=== PATIENT | female | born 1945 | race Caucasian/White ===

== ENCOUNTER 2017-11-27 17:40 | Inpatient (IN) ==
[2017-11-27] MEDS ORDERED: predniSONE 20 MG TABLET PO ONE (18:09)
[2017-11-27] MEDS ORDERED: Ipratropium/Albuterol Neb 3 ML IH ONE (18:09)
--- NOTE | 2017-11-27 18:09 | Emergency Department Note ---
Disposition Clinical Impression: Acute exacerbation of chronic obstructive airways disease Disposition: Still a Patient Condition: Fair Forms: ED Satisfaction Letter Time of Disposition: 19:17 SOB HPI - General Chief Complaint: ED Shortness of Breath/Dyspnea Stated Complaint: Flu like symptoms,ENZO Time Seen by Provider: 11/27/17 17:53 Source: patient, family Limitations: no limitations Nursing Notes Reviewed: Yes Vital Signs Reviewed: Yes - History of Present Illness 72-year-old female history of COPD not oxygen dependent but requiring oxygen, presents with cough congestion and fever headache myalgias. Temperature 101 at home, she seen by her primary care physician who ordered a chest x-ray earlier was negative for pneumonia. The patient states that her symptoms started acutely this morning. Patient has wheezing, cough nonproductive, headache fever chills. Patient patient may have influenza, she did get a flu shot this year and is up-to-date on her pneumonia vaccine. She has not been admitted to the hospital for several years. Pt Subjective Complaint: shortness of breath, cough Onset (ago): hour(s) Context: recent illness Severity: moderate Consistency/Duration: intermittent Improves with: oxygen Known history of: COPD Associated symptoms: Reports: fever, cough, wheezing, sputum production Treatment prior to arrival: oxygen Cough present: Yes Cough Description: Voluntary Cough Frequency: Intermittent Sputum production: No Sputum Amount: Scant Sputum Color: Clear - Related Data Home Medications Medication Instructions Recorded Confirmed Aspirin 81 mg PO DAILY 07/20/15 08/16/16 TraMADol 50 mg PO Q6H PRN 07/20/15 08/16/16 Acetaminophen with Codeine 1 each PO Q8H PRN 08/16/16 08/16/16 [Acetaminophen-Cod #3 Tablet] Albuterol Sulfate [Albuterol 2 puff IH Q4HR PRN 08/16/16 08/16/16 Inhaler] Budesonide/Formoterol 160/4.5 2 puff IH BIDR 08/16/16 08/16/16 [Symbicort 160/4.5] Clopidogrel [Plavix] 75 mg PO DAILY 08/16/16 08/16/16 Previous Rx's Medication Instructions Recorded GuaiFENesin ER [Mucinex] 600 mg PO BID PRN 3 Days tab 07/20/15 Benzonatate [Tessalon] 200 mg PO TID PRN #30 capsule 10/21/16 GuaiFENesin ER [Mucinex] 1,200 mg PO BID #20 tbbp.12hr 10/21/16 Doxycycline 100 mg PO BID #20 capsule 01/03/17 predniSONE [Prednisone] 10 - 40 mg PO QAM #17 tablet 01/03/17 Benzonatate [Tessalon] 100 mg PO TID #30 capsule 01/24/17 Doxycycline Hyclate 100 mg PO BID #20 tablet 01/24/17 PredniSONE [Deltasone] 20 mg PO DAILY #12 tablet 01/24/17 Allergies Allergy/AdvReac Type Severity Reaction Status Date / Time Hydromorphone [From Dilaudid] Allergy Rash Verified 11/27/17 17:48 nitrofurantoin Allergy Anaphylaxis Verified 11/27/17 17:48 [From Macrodantin] Erythromycin Base AdvReac Gastrointestinal Verified 11/27/17 17:48 Upset Penicillins AdvReac Gastrointestinal Verified 11/27/17 17:48 Upset All systems ED: reviewed and negative except as stated. Review of Systems: As Per HPI Constitutional: Reports: fever, chills Eyes: Denies: eye pain, eye discharge ENT ED: Denies: ear pain, throat pain Cardiovascular: Denies: chest pain Respiratory: Reports: as per HPI, cough, dyspnea, wheezes Gastrointestinal: Denies: abdominal pain, nausea Genitourinary: Denies: urgency Musculoskeletal: Denies: back pain, neck pain Integumentary: Denies: rash, abrasion Neurological: Denies: headache Psychiatric: Denies: anxiety Past Medical History - Past Medical History Attestation: Yes The following information was validated with the patient. Source: patient Medical history: Reports: COPD, coronary artery disease, fibromyalgia, GERD, hyperlipidemia, myocardial infarction, other Surgical history: Reports: angioplasty/stent, appendectomy Psychiatric history: Reports: anxiety, depression - Social History Smoking Status: Current every day smoker Smokeless Tobacco Status: No Alcohol use: Reports: none Drug use: Reports: none Physical Exam Constitutional: NAD, on 2 L of oxygen, febrile and tachycardic Eyes: PERRLA, sclera anicteric ENT & Mouth: MM dry Neck: normal inspection, neck is supple Resp: wheezes bilaterally, coarse respirations CV: Tachycardia, no m/g/r GI: normal inspection, soft, no guarding or rigidity Neuro: A&O3, CNII-XII grossly intact, KIM Skin: on limited exam, skin intact with no rashes or lesions - General Limitations: no limitations General appearance: alert Course Course Narrative: 72-year-old female COPD, she presents febrile and tachycardic, she has diffuse inspiratory and expiratory wheezes, do nebs ordered CBC BMP, blood cultures and lactate influenza swab, suspect flu, bronchitis, upper respiratory infection, COPD exacerbation, care will be signed out to Dr. Trinidad and for follow- up on lab work and possible admission. Vital Signs Temperature 100.4 F H 11/27/17 17:44 Pulse Rate 107 11/27/17 17:44 Respiratory Rate 24 11/27/17 17:44 Blood Pressure 128/71 11/27/17 17:44 O2 Sat by Pulse Oximetry 91 11/27/17 17:44 Temperature 100.4 F H 11/27/17 18:16 Pulse Rate 100 11/27/17 18:46 Respiratory Rate 21 11/27/17 18:46 Blood Pressure 145/85 11/27/17 18:46 O2 Sat by Pulse Oximetry 94 11/27/17 18:46 Oxygen Delivery Oxygen Delivery Nasal Cannula Shortness of Breath/Dyspnea - Differential Diagnosis Likely: congestive heart failure, pneumonia, pulmonary embolism - Medical Records Medical records reviewed: Yes I reviewed the patient's medical records. - Lab Data Lab results reviewed: Yes I reviewed the patient's lab results. Result diagrams: 11/27/17 18:07 Lab Results 11/27/17 11/27/17 11/27/17 Range/Units 18:07 18:07 18:07 WBC 7.0 (4.3-11.1) K/mcL RBC 4.21 (3.82-4.97) M/mcL Hgb 13.6 (11.5-15.4) g/dL Hct 40.0 (35.3-44.9) % MCV 95.0 (83.0-100.0) fL MCH 32.3 (28.0-33.3) pg MCHC 34.0 (31.6-35.5) g/dL RDW 12.2 (11.5-14.5) % Plt Count 246 (140-400) K/mcL MPV 8.9 L (9.4-12.4) fL Immature Gran % 0.4 (0-4) % Seg Neutrophils % 83.4 % Lymphocytes % 5.4 % Monocytes % 7.8 % Eosinophils % 2.3 % Basophils % 0.7 % Neutrophils # 5.9 (1.6-8.9) K/mcL Lymphocytes # 0.4 L (0.6-4.6) K/mcL Monocytes # 0.6 (0.0-1.3) K/mcL Eosinophils # 0.2 (0.0-0.6) K/mcL Basophils # 0.1 (0.0-0.2) K/mcL Lactic Acid 0.8 (0.5-2.2) mmol/L Troponin I < 0.03 (< 0.04) ng/mL - Radiology Data Radiology results reviewed: Yes I reviewed the patient's radiology results. S.B.A.R. - S.B.A.RDasha Transition of Care: fu labs dispo Situation: Demographics, MOA Background: Presenting Complaint, Relevant PMH, Meds, & Allergies Assessment: Vital Signs, Course and respsone to treatment, Exam Concerns, Patient/Family Expectation, Pertinant Lab Results, Outstanding Labs Recommendation: Barrier(s) to disposition, Recommendation based on pending studies, treatments, or consults S.B.A.RDasha Report Given to: Amos Louise Repor Time: 19:18 Attestation Statement - Attestation Attestation: I, Noam Bateman, examined this patient and my medical decision-making was reviewed with the IMPORTER OR EXPORTER/PA/Advanced Practice Nurse/Resident Physician. I agree with the documented findings, disposition and treatment plan as described except to the extent set forth below. 72-year-old female presents emergency department with acute onset of shortness of breath. Patient states she has a long history of COPD exacerbations and this feels similar to them. Patient denies nausea, vomiting, diarrhea. Patient has wheezing the bilateral posterior lung galaviz. Patient care was signed out to Dr. Dede Bateman pending laboratory evaluation and imaging studies and disposition.
[2017-11-27 18:17] LABS: Basophils # 0.1 K/mcL (0.0-0.2); Basophils % 0.7 %; Eosinophils # 0.2 K/mcL (0.0-0.6); Eosinophils % 2.3 %; Hemoglobin 13.6 g/dL (11.5-15.4); Immature Granulocytes % 0.4 % (0-4); Lymphocytes # 0.4 K/mcL (0.6-4.6); Lymphocytes % 5.4 %; Mean Corpuscular Hemoglobin 32.3 pg (28.0-33.3); Mean Platelet Volume 8.9 fL (9.4-12.4); Monocytes # 0.6 K/mcL (0.0-1.3); Monocytes % 7.8 %; Neutrophils # 5.9 K/mcL (1.6-8.9); Platelet Count 246 K/mcL (140-400); Red Blood Count 4.21 M/mcL (3.82-4.97); Red Cell Distribution Width 12.2 % (11.5-14.5); Segmented Neutrophils % 83.4 %
[2017-11-27] MEDS ORDERED: Levofloxacin 750 MG/150 ML 750 MG/150 ML BAG IVPB STA (19:25)
[2017-11-27 19:36] LABS: Alanine Aminotransferase 14 Units/L (7-52); Albumin 3.9 g/dL (3.5-5.7); Albumin/Globulin Ratio 1.4 (1.1-2.2); Alkaline Phosphatase 56 Units/L (34-104); Aspartate Amino Transferase 18 Units/L (13-39); BUN/Creatinine Ratio 14 (6-26); Bilirubin,Direct 0.1 mg/dL (0.0-0.2); Bilirubin,Indirect 0.4 mg/dL (0.0-1.2); Bilirubin,Total 0.5 mg/dL (0.3-1.0); Blood Urea Nitrogen 11 mg/dL (8-23); Calcium 9.1 mg/dL (8.6-10.3); Carbon Dioxide 23 mEq/L (23-29); Chloride 101 mEq/L (98-107); Globulin 2.8 g/dL (2.4-3.5); Glucose 121 mg/dL (70-105); Lipase 6 Units/L (11-82); Osmolality,Calculated 273 (280-300); Sodium 131 mEq/L (136-145); Total Protein 6.7 g/dL (6.4-8.9); eGFR For African Americans > 60 (> 60); eGFR For Non-African Americans > 60 (> 60)
--- NOTE | 2017-11-27 19:36 | Emergency Department Note ---
START Narrative - START START: I examined this patient and my medical decision-making was reviewed with the Resident Physician. I agree with the documented findings, disposition and treatment plan as described except to the extent set forth below. accepted sign out from Dr. Bateman and the plan is to followup on the rest of the laboratory workup and admit to medicine for pneumonia, ACOPDE. She is wheezing at bedeside which apparantly had improved from when she first arrived and had a fever at that time. XR from this morning is not conclusivee for pneumonia although clinically she appears to have pnuemonia. We will treat for CAP and atypicals, she is not from a detention and no recent hospitalizations.
[2017-11-27 19:49] LABS: Bilirubin,Urine Negative (Negative); Blood,Urine Large (Negative); Clarity,Urine Clear (Clear); Color,Urine Yellow (Yellow); Glucose,Urine (UA) Normal (Normal); Ketones,Urine 15 mg/dL (Negative); Leukocyte Esterase,Urine Negative (Negative); Nitrite,Urine Negative (Negative); PH,Urine 6.5 pH Units (5.0-8.0); Protein,Urine Negative (Neg-Trace); Specific Gravity,Urine < 1.005 (1.010-1.025); Urobilinogen,Urine Normal (Normal)
[2017-11-27 19:51] LABS: Bacteria,Urine None Seen per hpf (None-Few); Hyaline Casts,Urine None Seen per lpf (None-Few); RBC,Urine 30-50 per hpf (0-3); Squamous Epithelial Cell,Urine None Seen per lpf (None-Few); WBC,Urine 0-3 per hpf (0-3)
[2017-11-27] MEDS ORDERED: *HR* Heparin 5,000 UNIT/ML VIAL IVP ONE (20:27)
[2017-11-27] MEDS ORDERED: *HR* Heparin 5,000 UNIT/ML VIAL IVP PRN ×2 (20:27)
[2017-11-27] MEDS ORDERED: Heparin 25,000 UNIT/500 ML D5W 25,000 UNIT/500 ML BAG IVC ONE (20:40)
--- NOTE | 2017-11-27 20:42 | Emergency Department Note ---
Disposition Clinical Impression: Acute exacerbation of chronic obstructive airways disease Pneumonia Qualifiers: Pneumonia type: due to unspecified organism Laterality: left Lung location: unspecified part of lung Qualified Code(s): J18.9 - Pneumonia, unspecified organism Pulmonary embolism Qualifiers: Pulmonary embolism type: other Chronicity: acute Acute cor pulmonale presence: without acute cor pulmonale Qualified Code(s): I26.99 - Other pulmonary embolism without acute cor pulmonale Disposition: Admitted As Inpatient Condition: Fair Referrals: Arelis Reinoso CNP [Primary Care Provider] - Forms: ED Satisfaction Letter SOB HPI - General Chief Complaint: ED Shortness of Breath/Dyspnea Stated Complaint: Flu like symptoms,ENZO Time Seen by Provider: 11/27/17 17:53 Source: patient, family Limitations: no limitations - History of Present Illness Severity: moderate Improves with: oxygen Associated symptoms: Reports: fever, cough, wheezing, sputum production Treatment prior to arrival: oxygen - Related Data Home Medications Medication Instructions Recorded Confirmed Aspirin 81 mg PO DAILY 07/20/15 08/16/16 TraMADol 50 mg PO Q6H PRN 07/20/15 08/16/16 Acetaminophen with Codeine 1 each PO Q8H PRN 08/16/16 08/16/16 [Acetaminophen-Cod #3 Tablet] Albuterol Sulfate [Albuterol 2 puff IH Q4HR PRN 08/16/16 08/16/16 Inhaler] Budesonide/Formoterol 160/4.5 2 puff IH BIDR 08/16/16 08/16/16 [Symbicort 160/4.5] Clopidogrel [Plavix] 75 mg PO DAILY 08/16/16 08/16/16 Previous Rx's Medication Instructions Recorded GuaiFENesin ER [Mucinex] 600 mg PO BID PRN 3 Days tab 07/20/15 Benzonatate [Tessalon] 200 mg PO TID PRN #30 capsule 10/21/16 GuaiFENesin ER [Mucinex] 1,200 mg PO BID #20 tbbp.12hr 10/21/16 Doxycycline 100 mg PO BID #20 capsule 01/03/17 predniSONE [Prednisone] 10 - 40 mg PO QAM #17 tablet 01/03/17 Benzonatate [Tessalon] 100 mg PO TID #30 capsule 01/24/17 Doxycycline Hyclate 100 mg PO BID #20 tablet 01/24/17 PredniSONE [Deltasone] 20 mg PO DAILY #12 tablet 01/24/17 Allergies Allergy/AdvReac Type Severity Reaction Status Date / Time Hydromorphone [From Dilaudid] Allergy Rash Verified 11/27/17 17:48 nitrofurantoin Allergy Anaphylaxis Verified 11/27/17 17:48 [From Macrodantin] Erythromycin Base AdvReac Gastrointestinal Verified 11/27/17 17:48 Upset Penicillins AdvReac Gastrointestinal Verified 11/27/17 17:48 Upset Constitutional: Reports: fever, chills Eyes: Denies: eye pain, eye discharge ENT ED: Denies: ear pain, throat pain Cardiovascular: Denies: chest pain Respiratory: Reports: as per HPI, cough, dyspnea, wheezes Gastrointestinal: Denies: abdominal pain, nausea Genitourinary: Denies: urgency Musculoskeletal: Denies: back pain, neck pain Integumentary: Denies: rash, abrasion Neurological: Denies: headache Psychiatric: Denies: anxiety Past Medical History - Past Medical History Medical history: Reports: COPD, coronary artery disease, fibromyalgia, GERD, hyperlipidemia, myocardial infarction, other Surgical history: Reports: angioplasty/stent, appendectomy Psychiatric history: Reports: anxiety, depression - Social History Smoking Status: Current every day smoker Smokeless Tobacco Status: No Alcohol use: Reports: none Drug use: Reports: none Physical Exam - General Limitations: no limitations General appearance: alert Course Course Narrative: Patient taken over at signout from Dr. Chaparro. Patient has history of intermittent oxygen use at home. Patient has had one day of feeling short of breath with wheezing and coughing up green. Sputum. The patient had a CT performed outpatient earlier today that was negative. Patient continues to have significant wheezing upon my evaluation. Patient has mild tachypnea. We will further evaluate with CTA of the chest. CTA shows posterior segmental PE with no right ventricular strain. Patient does have airspace opacity with what radiology described to me over the phone as laboratory process concerning for pneumonia but also concerning for an underlying nodule. They recommend follow-up CT to ensure resolution. Vital Signs Temperature 100.4 F H 11/27/17 17:44 Pulse Rate 107 11/27/17 17:44 Respiratory Rate 24 11/27/17 17:44 Blood Pressure 128/71 11/27/17 17:44 O2 Sat by Pulse Oximetry 91 11/27/17 17:44 Temperature 100.4 F H 11/27/17 18:16 Pulse Rate 107 11/27/17 19:29 Respiratory Rate 20 11/27/17 19:29 Blood Pressure 144/80 11/27/17 19:29 O2 Sat by Pulse Oximetry 94 11/27/17 19:29 Oxygen Delivery Oxygen Delivery Nasal Cannula Shortness of Breath/Dyspnea - Lab Data Result diagrams: 11/27/17 18:07 11/27/17 18:07 Lab Results 11/27/17 11/27/17 11/27/17 Range/Units 18:07 18:07 18:07 WBC 7.0 (4.3-11.1) K/mcL RBC 4.21 (3.82-4.97) M/mcL Hgb 13.6 (11.5-15.4) g/dL Hct 40.0 (35.3-44.9) % MCV 95.0 (83.0-100.0) fL MCH 32.3 (28.0-33.3) pg MCHC 34.0 (31.6-35.5) g/dL RDW 12.2 (11.5-14.5) % Plt Count 246 (140-400) K/mcL MPV 8.9 L (9.4-12.4) fL Immature Gran % 0.4 (0-4) % Seg Neutrophils % 83.4 % Lymphocytes % 5.4 % Monocytes % 7.8 % Eosinophils % 2.3 % Basophils % 0.7 % Neutrophils # 5.9 (1.6-8.9) K/mcL Lymphocytes # 0.4 L (0.6-4.6) K/mcL Monocytes # 0.6 (0.0-1.3) K/mcL Eosinophils # 0.2 (0.0-0.6) K/mcL Basophils # 0.1 (0.0-0.2) K/mcL Sodium 131 L (136-145) mEq/L Potassium 4.0 (3.5-5.1) mEq/L Chloride 101 (98-107) mEq/L Carbon Dioxide 23 (23-29) mEq/L BUN 11 (8-23) mg/dL Creatinine 0.78 (0.60-1.20) mg/dL Est GFR ( Amer) > 60 (> 60) Est GFR (Non-Af Amer) > 60 (> 60) BUN/Creatinine Ratio 14 (6-26) Glucose 121 H (70-105) mg/dL Calculated Osmolality 273 L (280-300) Lactic Acid (0.5-2.2) mmol/L Calcium 9.1 (8.6-10.3) mg/dL Total Bilirubin 0.5 (0.3-1.0) mg/dL Direct Bilirubin 0.1 (0.0-0.2) mg/dL Indirect Bilirubin 0.4 (0.0-1.2) mg/dL AST 18 (13-39) Units/L ALT 14 (7-52) Units/L Alkaline Phosphatase 56 (34-104) Units/L Troponin I < 0.03 (< 0.04) ng/mL Serum Total Protein 6.7 (6.4-8.9) g/dL Albumin 3.9 (3.5-5.7) g/dL Globulin 2.8 (2.4-3.5) g/dL Albumin/Globulin Ratio 1.4 (1.1-2.2) Lipase 6 L (11-82) Units/L Urine Color (Yellow) Urine Clarity (Clear) Urine pH (5.0-8.0) pH Units Ur Specific [place] (1.010-1.025) Urine Protein (Neg-Trace) mg/dL Urine Glucose (UA) (Normal) mg/dL Urine Ketones (Negative) mg/dL Urine Blood (Negative) Urine Nitrite (Negative) Urine Bilirubin (Negative) Urine Urobilinogen (Normal) mg/dL Ur Leukocyte Esterase (Negative) Urine Microscopic RBC (0-3) per hpf Urine Microscopic WBC (0-3) per hpf Ur Squamous Epith Cells (None-Few) per lpf Urine Bacteria (None-Few) per hpf Hyaline Casts (None-Few) per lpf Ur Culture Indicated? (NO) 11/27/17 11/27/17 Range/Units 18:07 19:40 WBC (4.3-11.1) K/mcL RBC (3.82-4.97) M/mcL Hgb (11.5-15.4) g/dL Hct (35.3-44.9) % MCV (83.0-100.0) fL MCH (28.0-33.3) pg MCHC (31.6-35.5) g/dL RDW (11.5-14.5) % Plt Count (140-400) K/mcL MPV (9.4-12.4) fL Immature Gran % (0-4) % Seg Neutrophils % % Lymphocytes % % Monocytes % % Eosinophils % % Basophils % % Neutrophils # (1.6-8.9) K/mcL Lymphocytes # (0.6-4.6) K/mcL Monocytes # (0.0-1.3) K/mcL Eosinophils # (0.0-0.6) K/mcL Basophils # (0.0-0.2) K/mcL Sodium (136-145) mEq/L Potassium (3.5-5.1) mEq/L Chloride (98-107) mEq/L Carbon Dioxide (23-29) mEq/L BUN (8-23) mg/dL Creatinine (0.60-1.20) mg/dL Est GFR ( Amer) (> 60) Est GFR (Non-Af Amer) (> 60) BUN/Creatinine Ratio (6-26) Glucose (70-105) mg/dL Calculated Osmolality (280-300) Lactic Acid 0.8 (0.5-2.2) mmol/L Calcium (8.6-10.3) mg/dL Total Bilirubin (0.3-1.0) mg/dL Direct Bilirubin (0.0-0.2) mg/dL Indirect Bilirubin (0.0-1.2) mg/dL AST (13-39) Units/L ALT (7-52) Units/L Alkaline Phosphatase (34-104) Units/L Troponin I (< 0.04) ng/mL Serum Total Protein (6.4-8.9) g/dL Albumin (3.5-5.7) g/dL Globulin (2.4-3.5) g/dL Albumin/Globulin Ratio (1.1-2.2) Lipase (11-82) Units/L Urine Color Yellow (Yellow) Urine Clarity Clear (Clear) Urine pH 6.5 (5.0-8.0) pH Units Ur Specific [place] < 1.005 L (1.010-1.025) Urine Protein Negative (Neg-Trace) mg/dL Urine Glucose (UA) Normal (Normal) mg/dL Urine Ketones 15 H (Negative) mg/dL Urine Blood Large H (Negative) Urine Nitrite Negative (Negative) Urine Bilirubin Negative (Negative) Urine Urobilinogen Normal (Normal) mg/dL Ur Leukocyte Esterase Negative (Negative) Urine Microscopic RBC 30-50 H (0-3) per hpf Urine Microscopic WBC 0-3 (0-3) per hpf Ur Squamous Epith Cells None Seen (None-Few) per lpf Urine Bacteria None Seen (None-Few) per hpf Hyaline Casts None Seen (None-Few) per lpf Ur Culture Indicated? NO (NO)
[2017-11-27 20:52] LABS: INR 1.1; Prothrombin Time 12.2 Seconds (9.4-12.1)
[2017-11-27 20:54] LABS: Activated Partial Thrombo Time 29.6 Seconds (26.0-36.0)
[2017-11-27] MEDS: Heparin 25,000 UNIT/500 ML D5W 25,000 UNIT/500 ML BAG IVC SCH (21:18)
[2017-11-27] MEDS ORDERED: Naloxone 0.4 MG/ML INJ IVP PRN (23:13)
[2017-11-28] MEDS: traMADol 50 MG TABLET PO PRN ×3 (00:29→21:09)
--- NOTE | 2017-11-28 00:57 | Internal Med History&Physical ---
Date of Encounter: 11/27/17 Time of Encounter: 22:00 Assessment and Plan (1) Pulmonary nodule Current visit: Yes Status: Suspected Suspected pulmonary nodule on CTA, follow up imaging after PNA resolved per radiology recommendation. (2) CAD (coronary artery disease) Current visit: Yes Status: Acute No chest pain, cont home meds. Qualifiers: Coronary Disease-Associated Artery/Lesion type: [place] artery [place] vs. transplanted heart: kake heart Associated angina: without angina Qualified Code(s): I25.10 - Atherosclerotic heart disease of k[place] coronary artery without angina pectoris (3) DVT prophylaxis Current visit: Yes Status: Acute Pt is on heparin drip (4) Acute exacerbation of chronic obstructive airways disease Current visit: Yes Status: Acute Pt has wheezes. Consider COPD exacerbation. - Cont Abx, steroid, and bronchidilator. - Cont NC O2 (5) Pneumonia Current visit: Yes Status: Acute CTA shows LLL pna, consider CAP - Levaquin IV Qualifiers: Pneumonia type: due to Pneumococcus Laterality: left Lung location: lower lobe of lung Qualified Code(s): J13 - Pneumonia due to Streptococcus pneumoniae (6) Pulmonary embolism Current visit: Yes Status: Acute Acute PE found on CTA - On heparin drip - Need halfway AC, will consult pharmacy to check insurance coverage Pt is at high risk because she is on heparin drip, need close monitoring. Qualifiers: Pulmonary embolism type: other Chronicity: acute Acute cor pulmonale presence: without acute cor pulmonale Qualified Code(s): I26.99 - Other pulmonary embolism without acute cor pulmonale Internal Medicine - H&P: HPI Chief complaint: SOB Admitted From: Home Plans for Post Hospital Care: Home History of present illness: Ms. Rodriguez is a 72 year old female with Hx of COPD on home oxygen, CAD s/p stent, present to ER for SOB started since yesterday. Pt was treated as Flu by PCP with Tamiflu. She has fever, productive cough with clear sputum, increased SOB. Her temperature was high to 102 yesterday. Pt denies chest pain, nausea. She denies leg pain or swelling or recent travel. In ER, CTA has been done, shows acute PE, LLL pneumonia, and suspected nodule. Pt was started heparin drip for acute PE and abx for pneumonia. She was admitted for further treatment. Past Med Surg Social Fam HX - Past Medical History Medical history: COPD, coronary artery disease, fibromyalgia, GERD, hyperlipidemia, myocardial infarction, other Psychiatric history: anxiety, depression - Past Surgical History Surgical History: angioplasty/stent, appendectomy - Social History Smoking Status: Current every day smoker Smokeless Tobacco Status: No Alcohol use: none Drug use: none - Family History Mother Name: drew Age at : 77 Cause of : cancer Hx Family Cardiac Disorders: Yes Hx Family Respiratory Disorders: Yes (lung cancer) Hx Family Cancer: Yes (Lung ca) Internal Medicine - H&P: Meds Aspirin Enteric Coated [Aspirin EC] 81 mg PO DAILY #0 07/20/15 [History] Tramadol HCl [Ultram] 50 mg PO Q4H PRN #0 07/20/15 [History] Albuterol Sulfate [Albuterol Inhaler] 2 puff IH Q4HR PRN 08/16/16 [History] Fluticasone/Vilanterol [Breo Ellipta 200-25 Mcg INH] 1 each IH DAILY 11/27/17 [ History] Ipratropium/Albuterol Neb [Duoneb] 3 ml IH Q6H PRN 11/27/17 [History] LORazepam [Ativan] 1 mg PO BID PRN 11/27/17 [History] Oseltamivir [Tamiflu] 75 mg PO BID 11/27/17 [History] Oxygen 2 l NS AD 11/27/17 [History] levoFLOXacin [Levaquin] 500 mg PO DAILY 11/27/17 [History] predniSONE [PredniSONE] See Taper PO DAILY 11/27/17 [History] 3 Allergy/AdvReac Type Severity Reaction Status Date / Time Hydromorphone [From Dilaudid] Allergy Rash Verified 11/27/17 17:48 nitrofurantoin Allergy Anaphylaxis Verified 11/27/17 17:48 [From Macrodantin] Erythromycin Base AdvReac Gastrointestinal Verified 11/27/17 17:48 Upset Penicillins AdvReac Gastrointestinal Verified 11/27/17 17:48 Upset All Systems PM: A 10-system review of systems was performed and is negative for pertinent findings except as documented above in the HPI. - Constitutional Vitals: Temp Pulse Resp BP Pulse Ox 98.1 F 87 17 139/81 97 11/27/17 22:23 11/28/17 00:46 11/28/17 00:46 11/28/17 00:46 11/28/17 00:46 General appearance: Present: A&O X 3, no acute distress, answers questions appropriately - Head Head exam: Present: atraumatic, normocephalic - Eye Eye exam: Present: PERRL, conjuntiva pink, sclera anicteric Pupils: Present: PERRL - Neck Neck exam general surgery: Present: supple, trachea midline. Absent: lymphadenopathy - Respiratory Respiratory exam: Present: CTAB, wheezes (defused wheezes b/l). Absent: accessory muscle use, rales, rhonchi - Cardiovascular Cardiovascular exam: Present: RRR, +S1, +S2. Absent: diastolic murmur, gallop, rubs, systolic murmur - GI/Abdominal GI/Abdominal exam: Present: normal bowel sounds, soft, no peritoneal signs. Absent: distended, tenderness - Extremities Exam Extremities exam: Present: warm, radial pulses palpable and symmetrical. Absent : calf tenderness, cyanotic, pedal edema - Neurological Exam Neurological exam: Present: CN II-XII intact, oriented X3, no focal deficits. Absent: pronater drift, facial droop, speech deficit - Skin Skin exam: Present: dry, intact Internal Med - H&P Results - Labs CBC & Chem 7: 11/27/17 18:07 11/27/17 18:07 - EKG Data -: EKG Interpreted by Myself EKG shows normal: sinus rhythm Rate: normal
[2017-11-28] MEDS: Ipratropium/Albuterol Neb 3 ML IH SCH ×4 (04:12→20:17)
[2017-11-28 04:28] LABS: Basophils % 0.3 %; Hematocrit 40.5 % (35.3-44.9); Hemoglobin 13.9 g/dL (11.5-15.4); Immature Granulocytes % 0.3 % (0-4); Lymphocytes # 0.3 K/mcL (0.6-4.6); Lymphocytes % 7.3 %; Mean Corpuscular HGB Conc 34.3 g/dL (31.6-35.5); Mean Corpuscular Hemoglobin 32.4 pg (28.0-33.3); Mean Corpuscular Volume 94.4 fL (83.0-100.0); Mean Platelet Volume 9.1 fL (9.4-12.4); Monocytes # 0.1 K/mcL (0.0-1.3); Neutrophils # 3.2 K/mcL (1.6-8.9); Platelet Count 252 K/mcL (140-400); Red Blood Count 4.29 M/mcL (3.82-4.97); Segmented Neutrophils % 90.1 %
[2017-11-28 04:48] LABS: BUN/Creatinine Ratio 15 (6-26); Blood Urea Nitrogen 11 mg/dL (8-23); Calcium 9.3 mg/dL (8.6-10.3); Carbon Dioxide 23 mEq/L (23-29); Chloride 105 mEq/L (98-107); Glucose 143 mg/dL (70-105); Osmolality,Calculated 284 (280-300); Sodium 136 mEq/L (136-145); eGFR For African Americans > 60 (> 60); eGFR For Non-African Americans > 60 (> 60)
[2017-11-28] MEDS: VILANTEROL IH SCH (08:36)
[2017-11-28] MEDS: FLUTICASONE FUROATE IH SCH (08:36)
[2017-11-28] MEDS: Aspirin Enteric Coated 81 MG Tablet PO SCH (09:36)
[2017-11-28] MEDS: predniSONE 20 MG TABLET PO SCH (09:36)
[2017-11-28] MEDS: Nicotine 21 MG PATCH.TD24 TD SCH (09:36)
[2017-11-28] MEDS: Levofloxacin 750 MG/150 ML 750 MG/150 ML BAG IVPB SCH (09:37)
[2017-11-28] MEDS: Acetaminophen 325 MG TABLET PO PRN ×2 (09:40→21:08)
[2017-11-28] MEDS: *HR* LORazepam 1 MG TABLET PO PRN ×2 (09:41→21:09)
--- NOTE | 2017-11-28 11:29 | Internal Med Progress Note ---
Date of Encounter: 11/28/17 Time of Encounter: 11:29 - Assessment and plan (1) Acute exacerbation of chronic obstructive airways disease Current Visit: Yes Status: Acute Assessment and plan: continue duonebs, steroids, antibiotics d/c tamiflu (2) CAD (coronary artery disease) Current Visit: Yes Status: Chronic Assessment and plan: continue home meds Qualifiers: Coronary Disease-Associated Artery/Lesion type: [place] artery [place] vs. transplanted heart: [place] heart Associated angina: without angina Qualified Code(s): I25.10 - Atherosclerotic heart disease of [place] coronary artery without angina pectoris (3) DVT prophylaxis Current Visit: Yes Status: Acute Assessment and plan: on heparin drip (4) Pneumonia Current Visit: Yes Status: Acute Assessment and plan: per CT scan Continue levaquin Qualifiers: Pneumonia type: due to Pneumococcus Laterality: left Lung location: lower lobe of lung Qualified Code(s): J13 - Pneumonia due to Streptococcus pneumoniae (5) Pulmonary embolism Current Visit: Yes Status: Acute Assessment and plan: continue heaprind rip for now no evidence of infarct, no increasing O2 requirement Plan to discharge on eliquis when medically stable Qualifiers: Pulmonary embolism type: other Chronicity: acute Acute cor pulmonale presence: without acute cor pulmonale Qualified Code(s): I26.99 - Other pulmonary embolism without acute cor pulmonale (6) Pulmonary nodule Current Visit: Yes Status: Suspected Assessment and plan: follow up with [facility] as out-patient - Subjective Interval history: Seen and evaluated at the bedside. She is admitted for management of COPD exacerbation, pneumonia, and pulmonary embolism. She reports her breathing has improved. She has no new complaints. Upon discussion of long-term anticoagulation with the patient, she has requested to be placed on eliquis - Constitutional Vitals: Temp Pulse Resp BP Pulse Ox 100 F H 86 19 128/76 96 11/28/17 06:35 11/28/17 06:35 11/28/17 08:33 11/28/17 08:33 11/28/17 08:33 General appearance: Present: A&O X 3, no acute distress, answers questions appropriately - Head Head exam: Present: atraumatic, normocephalic - Eye Eye exam: Present: PERRL, conjuntiva pink, sclera anicteric Pupils: Present: PERRL - Neck Neck exam general surgery: Present: supple, trachea midline. Absent: lymphadenopathy - Respiratory Respiratory exam: Present: rales, rhonchi, wheezes - Cardiovascular Cardiovascular exam: Present: RRR, +S1, +S2. Absent: diastolic murmur, gallop, rubs, systolic murmur - GI/Abdominal GI/Abdominal exam: Present: normal bowel sounds, soft, no peritoneal signs. Absent: distended, tenderness - Extremities Exam Extremities exam: Present: warm, radial pulses palpable and symmetrical. Absent : calf tenderness, cyanotic, pedal edema - Neurological Exam Neurological exam: Present: alert, CN II-XII intact, oriented X3, no focal deficits. Absent: pronater drift, facial droop, speech deficit - Skin Skin exam: Present: dry, intact Internal Medicine: Result - Labs CBC & Chem 7: 11/28/17 03:53 11/28/17 03:53 Labs: Short CBC 11/28/17 Range/Units 03:53 WBC 3.6 L (4.3-11.1) K/mcL Hgb 13.9 (11.5-15.4) g/dL Hct 40.5 (35.3-44.9) % Plt Count 252 (140-400) K/mcL Neutrophils # 3.2 (1.6-8.9) K/mcL BMP 11/28/17 03:53 Sodium 136 Potassium 4.0 Chloride 105 Carbon Dioxide 23 BUN 11 Creatinine 0.74 Glucose 143 H Calcium 9.3 - ABG Interpretation ABG results: PT/INR, D-dimer PT 12.2 Seconds (9.4-12.1) H 11/27/17 18:07 Consult Discharge Plan - Plan Referrals: Arelis Reinoso CNP [Primary Care Provider] - Prescriptions: Apixaban [Eliquis] 5 mg PO AD 30 Days #74 tablet
[2017-11-28] MEDS: Ipratropium/Albuterol Neb 3 ML IH PRN (13:46)
[2017-11-28] MEDS ORDERED: Warfarin perPT PO PRN (18:00)
[2017-11-28] MEDS ORDERED: *HR* Warfarin 5 MG TABLET PO ONE (18:00)
[2017-11-29] MEDS: Ipratropium/Albuterol Neb 3 ML IH SCH ×4 (00:36→11:23)
[2017-11-29] MEDS: Heparin 25,000 UNIT/500 ML D5W 25,000 UNIT/500 ML BAG IVC SCH (02:15)
[2017-11-29 05:08] LABS: Basophils % 0.2 %; Hematocrit 40.7 % (35.3-44.9); Hemoglobin 13.9 g/dL (11.5-15.4); Immature Granulocytes % 0.2 % (0-4); Lymphocytes % 18.8 %; Mean Corpuscular HGB Conc 34.2 g/dL (31.6-35.5); Mean Corpuscular Hemoglobin 32.8 pg (28.0-33.3); Mean Platelet Volume 9.1 fL (9.4-12.4); Monocytes # 0.5 K/mcL (0.0-1.3); Monocytes % 8.9 %; Neutrophils # 3.6 K/mcL (1.6-8.9); Platelet Count 248 K/mcL (140-400); Red Blood Count 4.24 M/mcL (3.82-4.97); Red Cell Distribution Width 12.2 % (11.5-14.5); Segmented Neutrophils % 71.9 %
[2017-11-29 05:22] LABS: INR 1.2; Prothrombin Time 13.1 Seconds (9.4-12.1)
[2017-11-29 05:27] LABS: BUN/Creatinine Ratio 15 (6-26); Blood Urea Nitrogen 14 mg/dL (8-23); Calcium 9.3 mg/dL (8.6-10.3); Carbon Dioxide 27 mEq/L (23-29); Chloride 106 mEq/L (98-107); Glucose 125 mg/dL (70-105); Osmolality,Calculated 290 (280-300); Potassium 3.5 mEq/L (3.5-5.1); Sodium 139 mEq/L (136-145); eGFR For African Americans > 60 (> 60); eGFR For Non-African Americans > 60 (> 60)
[2017-11-29] MEDS: predniSONE 20 MG TABLET PO SCH (08:41)
[2017-11-29] MEDS: Nicotine 21 MG PATCH.TD24 TD SCH (08:41)
[2017-11-29] MEDS: Aspirin Enteric Coated 81 MG Tablet PO SCH (08:41)
[2017-11-29] MEDS: Levofloxacin 750 MG/150 ML 750 MG/150 ML BAG IVPB SCH (08:43)
[2017-11-29] MEDS: traMADol 50 MG TABLET PO PRN ×2 (08:49→21:13)
--- NOTE | 2017-11-29 11:15 | Internal Med Progress Note ---
Date of Encounter: 11/29/17 Time of Encounter: 10:40 - Assessment and plan (1) Acute exacerbation of chronic obstructive airways disease Current Visit: Yes Status: Acute Assessment and plan: continue duonebs, steroids, antibiotics tamiflu discontinued 11/28, influenza Ag is negative (2) CAD (coronary artery disease) Current Visit: Yes Status: Chronic Assessment and plan: continue home meds Qualifiers: Coronary Disease-Associated Artery/Lesion type: [place] artery [place] vs. transplanted heart: [place] heart Associated angina: without angina Qualified Code(s): I25.10 - Atherosclerotic heart disease of [place] coronary artery without angina pectoris (3) DVT prophylaxis Current Visit: Yes Status: Acute Assessment and plan: on heparin drip (4) Pneumonia Current Visit: Yes Status: Acute Assessment and plan: per CT scan Continue levaquin-Day 2 Qualifiers: Pneumonia type: due to Pneumococcus Laterality: left Lung location: lower lobe of lung Qualified Code(s): J13 - Pneumonia due to Streptococcus pneumoniae (5) Pulmonary embolism Current Visit: Yes Status: Acute Assessment and plan: continue heaprin drip for now no evidence of infarct, no increasing O2 requirement Started on warfarin 11/28, continue same, pharmacy to dose Qualifiers: Pulmonary embolism type: other Chronicity: acute Acute cor pulmonale presence: without acute cor pulmonale Qualified Code(s): I26.99 - Other pulmonary embolism without acute cor pulmonale (6) Pulmonary nodule Current Visit: Yes Status: Suspected Assessment and plan: follow up with [facility] as out-patient - Subjective Interval history: Seen and evaluated at the bedside. She is admitted for management of COPD exacerbation, pneumonia, and pulmonary embolism. She reports her breathing has improved. donya discussion of loShe has no new complaints. Eliquis is unaffordable, patient has opted for warfarin - Constitutional Vitals: Temp Pulse Resp BP Pulse Ox 97.6 F 9 18 96/66 97 11/29/17 10:59 11/29/17 10:59 11/29/17 10:59 11/29/17 10:59 11/29/17 10:59 General appearance: Present: A&O X 3, pleasant, no acute distress, answers questions appropriately - Head Head exam: Present: atraumatic, normocephalic - Eye Eye exam: Present: PERRL, conjuntiva pink, sclera anicteric Pupils: Present: PERRL - Neck Neck exam general surgery: Present: supple, trachea midline. Absent: lymphadenopathy - Respiratory Additional comments: few expiratory wheezes - Cardiovascular Cardiovascular exam: Present: RRR, +S1, +S2, tachycardia. Absent: diastolic murmur, gallop, rubs, systolic murmur - GI/Abdominal GI/Abdominal exam: Present: normal bowel sounds, soft, no peritoneal signs. Absent: distended, tenderness - Extremities Exam Extremities exam: Present: warm, radial pulses palpable and symmetrical. Absent : calf tenderness, cyanotic, pedal edema - Neurological Exam Neurological exam: Present: alert, CN II-XII intact, oriented X3, no focal deficits. Absent: pronater drift, facial droop, speech deficit - Skin Skin exam: Present: dry, intact Internal Medicine: Result - Labs CBC & Chem 7: 11/29/17 04:50 11/29/17 04:50 Labs: Short CBC 11/29/17 Range/Units 04:50 WBC 5.1 (4.3-11.1) K/mcL Hgb 13.9 (11.5-15.4) g/dL Hct 40.7 (35.3-44.9) % Plt Count 248 (140-400) K/mcL Neutrophils # 3.6 (1.6-8.9) K/mcL BMP 11/29/17 04:50 Sodium 139 Potassium 3.5 Chloride 106 Carbon Dioxide 27 BUN 14 Creatinine 0.92 Glucose 125 H Calcium 9.3 - ABG Interpretation ABG results: PT/INR, D-dimer PT 13.1 Seconds (9.4-12.1) H 11/29/17 04:50 Consult Discharge Plan - Plan Referrals: Arelis Reinoso CNP [Primary Care Provider] -
[2017-11-29] MEDS: FLUTICASONE FUROATE IH SCH (11:22)
[2017-11-29] MEDS: VILANTEROL IH SCH (11:22)
[2017-11-29] MEDS ORDERED: *HR* Warfarin 5 MG TABLET PO ONE (18:00)
[2017-11-29] MEDS: Ipratropium/Albuterol Neb 3 ML IH PRN (20:54)
[2017-11-29] MEDS: *HR* LORazepam 1 MG TABLET PO PRN (21:13)
[2017-11-30 05:25] LABS: INR 1.9; Prothrombin Time 20.7 Seconds (9.4-12.1)
[2017-11-30] MEDS: Heparin 25,000 UNIT/500 ML D5W 25,000 UNIT/500 ML BAG IVC SCH (06:35)
[2017-11-30] MEDS: VILANTEROL IH SCH (07:34)
[2017-11-30] MEDS: FLUTICASONE FUROATE IH SCH (07:34)
[2017-11-30] MEDS: Nicotine 21 MG PATCH.TD24 TD SCH (09:01)
[2017-11-30] MEDS: Aspirin Enteric Coated 81 MG Tablet PO SCH (09:01)
[2017-11-30] MEDS: predniSONE 20 MG TABLET PO SCH (09:01)
--- NOTE | 2017-11-30 13:10 | Internal Med Progress Note ---
Date of Encounter: 11/30/17 Time of Encounter: 13:10 - Assessment and plan (1) Acute exacerbation of chronic obstructive airways disease Current Visit: Yes Status: Acute Assessment and plan: continue duonebs, steroids, antibiotics tamiflu discontinued 11/28, influenza Ag is negative (2) CAD (coronary artery disease) Current Visit: Yes Status: Chronic Assessment and plan: continue home meds Qualifiers: Coronary Disease-Associated Artery/Lesion type: [place] artery [place] vs. transplanted heart: [place] heart Associated angina: without angina Qualified Code(s): I25.10 - Atherosclerotic heart disease of [place] coronary artery without angina pectoris (3) DVT prophylaxis Current Visit: Yes Status: Acute Assessment and plan: on heparin drip (4) Pneumonia Current Visit: Yes Status: Acute Assessment and plan: per CT scan Continue levaquin-Day 3 Qualifiers: Pneumonia type: due to Pneumococcus Laterality: left Lung location: lower lobe of lung Qualified Code(s): J13 - Pneumonia due to Streptococcus pneumoniae (5) Pulmonary embolism Current Visit: Yes Status: Acute Assessment and plan: continue heaprin drip for now no evidence of infarct, no increasing O2 requirement Started on warfarin 11/28, continue same, pharmacy to dose INR today is 1.9 Qualifiers: Pulmonary embolism type: other Chronicity: acute Acute cor pulmonale presence: without acute cor pulmonale Qualified Code(s): I26.99 - Other pulmonary embolism without acute cor pulmonale (6) Pulmonary nodule Current Visit: Yes Status: Suspected Assessment and plan: follow up with [facility] as out-patient - Subjective Interval history: Seen and evaluated at the bedside. She is admitted for management of COPD exacerbation, pneumonia, and pulmonary embolism. She reports her breathing has improved, she is ambulatory - Constitutional Vitals: Temp Pulse Resp BP Pulse Ox 97.9 F 89 16 106/79 96 11/30/17 10:50 11/30/17 10:50 11/30/17 10:50 11/30/17 10:50 11/30/17 10:50 General appearance: Present: A&O X 3, pleasant, no acute distress, answers questions appropriately - Head Head exam: Present: atraumatic, normocephalic - Eye Eye exam: Present: PERRL, conjuntiva pink, sclera anicteric - Neck Neck exam general surgery: Present: supple, trachea midline. Absent: lymphadenopathy - Respiratory Respiratory exam: Present: CTAB. Absent: accessory muscle use, rales, rhonchi, wheezes - Cardiovascular Cardiovascular exam: Present: RRR, +S1, +S2. Absent: diastolic murmur, gallop, rubs, systolic murmur - GI/Abdominal GI/Abdominal exam: Present: normal bowel sounds, soft, no peritoneal signs. Absent: distended, tenderness - Extremities Exam Extremities exam: Present: warm, radial pulses palpable and symmetrical. Absent : calf tenderness, cyanotic, pedal edema - Neurological Exam Neurological exam: Present: alert, CN II-XII intact, oriented X3, no focal deficits. Absent: pronater drift, facial droop, speech deficit - Skin Skin exam: Present: dry, intact Internal Medicine: Result - Labs CBC & Chem 7: 11/29/17 04:50 11/29/17 04:50 - ABG Interpretation ABG results: PT/INR, D-dimer PT 20.7 Seconds (9.4-12.1) H D 11/30/17 05:00 Consult Discharge Plan - Plan Referrals: Arelis Reinoso MDS RN [Primary Care Provider] -
[2017-11-30] MEDS ORDERED: *HR* Warfarin 2 MG TABLET PO ONE (18:00)
[2017-11-30] MEDS: traMADol 50 MG TABLET PO PRN (19:19)
[2017-11-30] MEDS: *HR* LORazepam 1 MG TABLET PO PRN (19:20)
[2017-11-30] MEDS: Ipratropium/Albuterol Neb 3 ML IH PRN (20:21)
--- NOTE | 2017-11-30 20:42 | Electrocardiograph Report ---
[place] [id number] Test Date: 2017-11-27 Pat Name: Sharon Rodriguez Department: 102 Room: 2NE28 Gender: F Cps Team Lead: : 1945 Requested By: Osvaldo Chaparro Order Number: [id number] Reading MD: Sujata Lamas Measurements Intervals [place] Rate: 95 P: 45 RI: 155 QRS: 10 QRSD: 85 T: 37 QT: 354 QTc: 407 Interpretive Statements SINUS RHYTHM POSSIBLE LEFT ATRIAL ENLARGEMENT [-0.1mV P WAVE IN V1/V2] POSSIBLE RIGHT VENTRICULAR CONDUCTION DELAY [RSR (QR) IN V1/V2] Electronically Signed On 11-30-2017 20:40:41 EST by Sujata Lamas
[2017-12-01 05:30] LABS: Basophils % 0.4 %; Hematocrit 39.6 % (35.3-44.9); Immature Granulocytes % 0.4 % (0-4); Lymphocytes # 1.7 K/mcL (0.6-4.6); Mean Corpuscular HGB Conc 32.8 g/dL (31.6-35.5); Mean Corpuscular Hemoglobin 31.6 pg (28.0-33.3); Mean Corpuscular Volume 96.4 fL (83.0-100.0); Mean Platelet Volume 9.5 fL (9.4-12.4); Monocytes # 0.4 K/mcL (0.0-1.3); Monocytes % 8.1 %; Neutrophils # 2.3 K/mcL (1.6-8.9); Platelet Count 245 K/mcL (140-400); Red Blood Count 4.11 M/mcL (3.82-4.97); Red Cell Distribution Width 12.3 % (11.5-14.5); Segmented Neutrophils % 52.1 %
[2017-12-01 05:41] LABS: INR 2.6
[2017-12-01] MEDS: predniSONE 20 MG TABLET PO SCH (08:24)
[2017-12-01] MEDS: Nicotine 21 MG PATCH.TD24 TD SCH (08:24)
[2017-12-01] MEDS: Aspirin Enteric Coated 81 MG Tablet PO SCH (08:24)
[2017-12-01] MEDS ORDERED: Levofloxacin 750 MG/150 ML 750 MG/150 ML BAG IVPB SCH (09:00)
--- NOTE | 2017-12-01 11:16 | Internal Med Progress Note ---
Date of Encounter: 12/01/17 Time of Encounter: 11:15 - Assessment and plan (1) Acute exacerbation of chronic obstructive airways disease Current Visit: Yes Status: Acute Assessment and plan: continue duonebs, steroids, antibiotics tamiflu discontinued 11/28, influenza Ag is negative (2) CAD (coronary artery disease) Current Visit: Yes Status: Chronic Assessment and plan: continue home meds Qualifiers: Coronary Disease-Associated Artery/Lesion type: [place] artery [place] vs. transplanted heart: [place] heart Associated angina: without angina Qualified Code(s): I25.10 - Atherosclerotic heart disease of [place] coronary artery without angina pectoris (3) DVT prophylaxis Current Visit: Yes Status: Acute Assessment and plan: INR therapeutic, continue coumadin, ambulate (4) Pneumonia Current Visit: Yes Status: Acute Assessment and plan: per CT scan Continue levaquin-Day 4 Qualifiers: Pneumonia type: due to Pneumococcus Laterality: left Lung location: lower lobe of lung Qualified Code(s): J13 - Pneumonia due to Streptococcus pneumoniae (5) Pulmonary embolism Current Visit: Yes Status: Acute Assessment and plan: no evidence of infarct, no increasing O2 requirement Started on warfarin 11/28, continue same, pharmacy to dose INR today is 2.6 Discontinued heparin Continue to monitor INR INR clinic appt made for Tuesday 12/05. Anticipate d/c tmrw Qualifiers: Pulmonary embolism type: other Chronicity: acute Acute cor pulmonale presence: without acute cor pulmonale Qualified Code(s): I26.99 - Other pulmonary embolism without acute cor pulmonale (6) Pulmonary nodule Current Visit: Yes Status: Suspected Assessment and plan: follow up with [facility] as out-patient - Subjective Interval history: Seen and evaluated at the bedside. She is admitted for management of COPD exacerbation, pneumonia, and pulmonary embolism. She reports her breathing has improved, she is ambulatory NO new complains INR today is 2.6 - Constitutional Vitals: Temp Pulse Resp BP Pulse Ox 98.7 F 92 14 142/82 98 12/01/17 11:02 12/01/17 11:02 12/01/17 11:02 12/01/17 11:02 12/01/17 11:02 General appearance: Present: A&O X 3, pleasant, no acute distress, answers questions appropriately - Head Head exam: Present: atraumatic, normocephalic - Eye Eye exam: Present: PERRL, conjuntiva pink, sclera anicteric Pupils: Present: PERRL - Neck Neck exam general surgery: Present: supple, trachea midline. Absent: lymphadenopathy - Respiratory Respiratory exam: Present: CTAB. Absent: accessory muscle use, rales, rhonchi, wheezes - Cardiovascular Cardiovascular exam: Present: RRR, +S1, +S2. Absent: diastolic murmur, gallop, rubs, systolic murmur - GI/Abdominal GI/Abdominal exam: Present: normal bowel sounds, soft, no peritoneal signs. Absent: distended, tenderness - Extremities Exam Extremities exam: Present: warm, radial pulses palpable and symmetrical. Absent : calf tenderness, cyanotic, pedal edema - Neurological Exam Neurological exam: Present: alert, CN II-XII intact, oriented X3, no focal deficits. Absent: pronater drift, facial droop, speech deficit - Skin Skin exam: Present: dry, intact Internal Medicine: Result - Labs CBC & Chem 7: 12/01/17 04:42 11/29/17 04:50 Labs: Short CBC 12/01/17 Range/Units 04:42 WBC 4.5 (4.3-11.1) K/mcL Hgb 13.0 (11.5-15.4) g/dL Hct 39.6 (35.3-44.9) % Plt Count 245 (140-400) K/mcL Neutrophils # 2.3 (1.6-8.9) K/mcL - ABG Interpretation ABG results: PT/INR, D-dimer PT 29.0 Seconds (9.4-12.1) H 12/01/17 04:42 Consult Discharge Plan - Plan Referrals: Arelis Reinoso CNP [Primary Care Provider] -
[2017-12-01] MEDS: traMADol 50 MG TABLET PO PRN (20:36)
[2017-12-01] MEDS: *HR* LORazepam 1 MG TABLET PO PRN (20:36)
[2017-12-01] MEDS: Ipratropium/Albuterol Neb 3 ML IH PRN (22:06)
[2017-12-02 05:05] LABS: INR 2.1; Prothrombin Time 22.7 Seconds (9.4-12.1)
[2017-12-02] MEDS: VILANTEROL IH SCH ×2 (07:24→08:43)
[2017-12-02] MEDS: FLUTICASONE FUROATE IH SCH ×2 (07:24→08:43)
[2017-12-02] MEDS: predniSONE 20 MG TABLET PO SCH (08:43)
[2017-12-02] MEDS: Aspirin Enteric Coated 81 MG Tablet PO SCH (08:43)
[2017-12-02] MEDS: Nicotine 21 MG PATCH.TD24 TD SCH (08:43)
[2017-12-02] MEDS ORDERED: levoFLOXacin 750 MG TABLET PO ONE (09:00)
[2017-12-02] MEDS: Ipratropium/Albuterol Neb 3 ML IH PRN (09:03)
[2017-12-02 10:40] VITALS: BP 130/81
--- NOTE | 2017-12-02 10:45 | Discharge Summary ---
- NOTES TO OUTPATIENT PROVIDER Notes to Outpatient Provider: Patient had an acute Pulmonary embolism, and pneumonia, she is discharged home on warfarin, goal INR is 2-3, she also has received 5 days of Levaquin 750 mg for pneumonia. She is discharged on 2 more days of the same. Orders not resulted at time of discharge: Pending orders 12/03/17 04:00 PT/INR [Prothrombin Time INR] [COAG] AM 0400 12/04/17 04:00 PT/INR [Prothrombin Time INR] [COAG] AM 0400 Date of Encounter: 12/02/17 Time of Encounter: 10:43 - Discharge Diagnosis (1) Acute exacerbation of chronic obstructive airways disease Priority: Primary Status: Resolved (2) CAD (coronary artery disease) Priority: Secondary Status: Chronic Qualifiers: Coronary Disease-Associated Artery/Lesion type: [place] artery [place] vs. transplanted heart: [place] heart Associated angina: without angina Qualified Code(s): I25.10 - Atherosclerotic heart disease of [place] coronary artery without angina pectoris (3) DVT prophylaxis Priority: Primary Status: Acute (4) Pneumonia Priority: Primary Status: Acute Qualifiers: Pneumonia type: due to Pneumococcus Laterality: left Lung location: lower lobe of lung Qualified Code(s): J13 - Pneumonia due to Streptococcus pneumoniae (5) Pulmonary embolism Priority: Primary Status: Acute Qualifiers: Pulmonary embolism type: other Chronicity: acute Acute cor pulmonale presence: without acute cor pulmonale Qualified Code(s): I26.99 - Other pulmonary embolism without acute cor pulmonale (6) Pulmonary nodule Priority: Primary Status: Suspected (7) Tobacco abuse Priority: Secondary Status: Chronic Hospital course: Ms. Rodriguez is a 72 year old female with medical history of COPD, and coronary artery disease, tobacco abuse. She was admitted and managed for pneumonia, and acute pulmonary embolism without right heart strain. She was requiring increasing amounts of oxygen and with treatment with steroids , antibiotics and duonebs, this has improved dramatically. She was treated with heparin and bridged to warfarin for PE management. She is ambulatory without new complains, for COPD exacerbation has improved. She has no influenza by testing. INR is therapeutic 2 and she is medically stable to be discharged home with warfarin. INR clinic appointment was made for Monday. Patient is educated about plan of care, she verbalizes understanding. She needs 2 more days of oral antibiotics at home does have been provided to her. Follow up with primary care physician and Coumadin clinic. 3 minutes spent on tobacco cessation counseling. Patient wishes to self quit She has a new pulmonary nodule, follow up with PCP Discharge discussed with: patient Time spent discussing smoking cessation with patient: 3 to 10 minutes - Time Spent with Patient Total time spent providing and/or coordinating discharge services: Greater than 30 minutes - Discharge Medications Prescriptions: levoFLOXacin [Levaquin] 750 mg PO DAILY #2 tablet Warfarin [Coumadin] 2 mg PO 1800 #5 tablet Home Medications: Aspirin Enteric Coated [Aspirin EC] 81 mg PO DAILY #0 07/20/15 [History] Tramadol HCl [Ultram] 50 mg PO Q4H PRN #0 07/20/15 [History] Albuterol Sulfate [Albuterol Inhaler] 2 puff IH Q4HR PRN 08/16/16 [History] Fluticasone/Vilanterol [Breo Ellipta 200-25 Mcg INH] 1 each IH DAILY 11/27/17 [ History] Ipratropium/Albuterol Neb [Duoneb] 3 ml IH Q6H PRN 11/27/17 [History] LORazepam [Ativan] 1 mg PO BID PRN 11/27/17 [History] Oxygen 2 l NS AD 11/27/17 [History] Warfarin [Coumadin] 2 mg PO 1800 #5 tablet 12/02/17 [Rx] levoFLOXacin [Levaquin] 750 mg PO DAILY #2 tablet 12/02/17 [Rx] Allergies/Adverse Reactions: 3 Allergy/AdvReac Type Severity Reaction Status Date / Time Hydromorphone [From Dilaudid] Allergy Rash Verified 11/27/17 17:48 nitrofurantoin Allergy Anaphylaxis Verified 11/27/17 17:48 [From Macrodantin] Erythromycin Base AdvReac Gastrointestinal Verified 11/27/17 17:48 Upset Penicillins AdvReac Gastrointestinal Verified 11/27/17 17:48 Upset Date of admission: 11/27/17 23:13 Primary care physician: Arelis Reinoso CNP Consults: 11/27/17 23:23 Consult for Pharmacy Education [CONS] Routine Reason for Consult: may need [facility] antico[facility] Call Completed: No 11/28/17 11:59 Consult to Physical Therapy [CONS] Routine Comment: Evaluate, develop and implement POC Reason for Consult: weakness; unsteady gait 11/28/17 12:01 Consult to Occupational Therapy [CONS] Routine Comment: Evaluate, develop and implement POC Reason for Consult: unsteady gait; weakness 11/29/17 14:44 Consult to Outgoing Inspector [CONS] Routine Reason for SW Consult: Patient needs assistance/given paperwork to complete for inhalers; patient states has not been able to afford Discharging clinician: Dony Yost Anticipated date of discharge: 12/02/17 - Constitutional Vitals: Temp Pulse Resp BP Pulse Ox 98.7 F 96 14 130/81 98 12/02/17 10:37 12/02/17 10:37 12/02/17 10:37 12/02/17 10:37 12/02/17 10:37 General appearance: Present: A&O X 3, pleasant, no acute distress, answers questions appropriately - Head Head exam: Present: atraumatic, normocephalic - Eye Eye exam: Present: PERRL, conjuntiva pink, sclera anicteric Pupils: Present: PERRL - Neck Neck exam general surgery: Present: supple, trachea midline. Absent: lymphadenopathy - Respiratory Respiratory exam: Present: CTAB. Absent: accessory muscle use, rales, rhonchi, wheezes - Cardiovascular Cardiovascular exam: Present: RRR, +S1, +S2. Absent: diastolic murmur, gallop, rubs, systolic murmur - GI/Abdominal GI/Abdominal exam: Present: normal bowel sounds, soft, no peritoneal signs. Absent: distended, tenderness - Extremities Exam Extremities exam: Present: warm, radial pulses palpable and symmetrical. Absent : calf tenderness, cyanotic, pedal edema - Neurological Exam Neurological exam: Present: alert, CN II-XII intact, oriented X3, no focal deficits. Absent: pronater drift, facial droop, speech deficit - Skin Skin exam: Present: dry, intact - Patient Status Disposition: Home, Self-Care Condition: Fair - Discharge Instructions Instructions: Warfarin (By mouth), Levofloxacin (By mouth), Pulmonary Embolism (DC), Chronic Obstructive Pulmonary Disease (DC), Pneumonia (DC) Follow Up With: Arelis Reinoso CNP [Primary Care Provider] - - Diet and Activity Activity: resume usual activities as tolerated, wear oxygen at all times Diet: low salt diet
[2017-12-02] MEDS ORDERED: *HR* Warfarin 2 MG TABLET PO ONE (18:00)
== END 2017-12-02 13:19 | disposition home or self-care (01) | DRG 190 ==
LOC: EMEROO 17:40 → 2NENU 17:40 → SUATTDRO 23:13
PROVIDERS: ADMIT Internal Medicine; ATTEND Internal Medicine

== ENCOUNTER 2018-04-11 17:15 | Inpatient (IN) ==
[2018-04-11] MEDS ORDERED: Isovue-370 500 ML INFUS..BTL IV ONE (17:37)
[2018-04-11] MEDS ORDERED: Ipratropium/Albuterol Neb 3 ML IH ONE (17:40)
[2018-04-11] MEDS ORDERED: predniSONE 20 MG TABLET PO ONE (17:40)
--- NOTE | 2018-04-11 17:53 | Emergency Department Note ---
Disposition Clinical Impression: Acute exacerbation of chronic obstructive airways disease, Acute dyspnea Disposition: Still a Patient Condition: Undetermined Referrals: Arelis Reinoso CNP [Primary Care Provider] - Forms: ED Satisfaction Letter Time of Disposition: 18:58 SOB HPI - General Chief Complaint: ED Shortness of Breath/Dyspnea Stated Complaint: ENZO Time Seen by Provider: 04/11/18 17:30 Source: patient Mode of arrival: ambulatory Limitations: no limitations Nursing Notes Reviewed: Yes Vital Signs Reviewed: Yes - History of Present Illness 73-year-old female with history of SD, pulmonary embolus on warfarin, history of COPD on 2 L nasal cannula when necessary, Am[place] the emergency department with complaint of dyspnea. The patient states it came on suddenly when she woke up this morning. The patient states this is similar to when she had a PE in the past. The patient states that she does have a history of COPD exacerbations but states this is very different. The patient has been using her home medications as prescribed. She denies any other complaints at this time. She is in mild respiratory distress in the room but she is speaking in full sentences. Patient has no accessory muscle use at this time. She has diffuse wheezing on auscultation. She denies any chest pain, unilateral leg swelling, hemoptysis. - Related Data Home Medications Medication Instructions Recorded Confirmed Aspirin Enteric Coated [Aspirin EC] 81 mg PO DAILY #0 07/20/15 04/10/18 Tramadol HCl [Ultram] 50 mg PO Q4H PRN #0 07/20/15 04/10/18 Albuterol Sulfate [Albuterol 2 puff IH Q4HR PRN 08/16/16 04/10/18 Inhaler] Fluticasone/Vilanterol [Breo 1 each IH DAILY 11/27/17 04/10/18 Ellipta 200-25 Mcg INH] Ipratropium/Albuterol Neb [Duoneb] 3 ml IH Q6H PRN 11/27/17 04/10/18 LORazepam [Ativan] 1 mg PO BID PRN 11/27/17 04/10/18 Oxygen 2 l NS AD 11/27/17 04/10/18 Metoprolol [Lopressor] 12.5 mg PO BID 01/01/18 04/10/18 Warfarin [Coumadin] 2 mg PO 5XW 01/01/18 04/10/18 Warfarin [Coumadin] 2.5 mg PO 2XW 01/01/18 04/10/18 Allergies Allergy/AdvReac Type Severity Reaction Status Date / Time Hydromorphone [From Dilaudid] Allergy Rash Verified 04/11/18 17:22 nitrofurantoin Allergy Anaphylaxis Verified 04/11/18 17:22 [From Macrodantin] Erythromycin Base AdvReac Gastrointestinal Verified 04/11/18 17:22 Upset Penicillins AdvReac Gastrointestinal Verified 04/11/18 17:22 Upset All systems ED: reviewed and negative except as stated. Constitutional: Denies: fever, chills, weakness ENT ED: Denies: congestion Cardiovascular: Denies: chest pain, dyspnea on exertion, edema, syncope Respiratory: Reports: dyspnea, wheezes. Denies: cough, hemoptysis, sputum production Gastrointestinal: Denies: abdominal pain, nausea Genitourinary: Denies: urgency, dysuria Musculoskeletal: Denies: back pain, neck pain Integumentary: Denies: rash Neurological: Denies: headache Past Medical History - Past Medical History Attestation: Yes The following information was validated with the patient. Source: patient Medical history: Reports: COPD, coronary artery disease, fibromyalgia, GERD, hyperlipidemia, myocardial infarction, pulmonary embolus, other Surgical history: Reports: angioplasty/stent, appendectomy, hysterectomy Psychiatric history: Reports: anxiety, depression - Social History Smoking Status: Current every day smoker Smokeless Tobacco Status: No Alcohol use: Reports: none Drug use: Reports: none Physical Exam - General Limitations: no limitations General appearance: alert, in distress (Mild respiratory) - Head Head exam: atraumatic, normocephalic, normal inspection - Eye Eye exam: Present: normal appearance, PERRL, EOMI - ENT ENT exam: normal exam, normal oropharynx, mucous membranes moist - Neck Neck exam: Present: normal inspection, full ROM, trachea midline - Chest Chest inspection: Present: normal inspection, symmetric chest wall rise - Respiratory Respiratory exam: Present: respiratory distress (Mild), wheezes (Diffuse). Absent: accessory muscle use - Cardiovascular Cardiovascular exam: Present: normal rhythm, tachycardia, normal heart sounds - Extremities Exam Extremities exam: Present: normal inspection, full ROM. Absent: tenderness, pedal edema - Neurological Exam Neurological exam: Present: alert, oriented X3 - Skin Skin exam: Present: warm, dry, intact, normal color Course Vital Signs Temperature 99.5 F 04/11/18 17:22 Pulse Rate 110 04/11/18 17:22 Respiratory Rate 26 04/11/18 17:22 Blood Pressure 129/75 04/11/18 17:22 O2 Sat by Pulse Oximetry 90 04/11/18 17:22 Temperature 99.5 F 04/11/18 17:52 Pulse Rate 110 04/11/18 17:52 Respiratory Rate 18 04/11/18 18:04 Blood Pressure 129/75 04/11/18 17:52 O2 Sat by Pulse Oximetry 90 04/11/18 18:04 Oxygen Delivery Oxygen Delivery Room Air Shortness of Breath/Dyspnea - MDM Narrative Medical decision making narrative: Patient's demonstrates no EKG changes. The patient is resting comfortably at this time after receiving 3 duo nebs. The patient was placed on 3 L nasal cannula 91% on this. We will sign this patient out to the night team. - Lab Data Lab results reviewed: Yes I reviewed the patient's lab results. Result diagrams: 04/11/18 17:37 04/11/18 17:37 Lab Results 04/11/18 04/11/18 04/11/18 Range/Units 17:37 17:37 17:37 WBC 9.8 D (4.3-11.1) K/mcL RBC 4.35 (3.82-4.97) M/mcL Hgb 14.2 D (11.5-15.4) g/dL Hct 41.0 (35.3-44.9) % MCV 94.3 (83.0-100.0) fL MCH 32.6 (28.0-33.3) pg MCHC 34.6 (31.6-35.5) g/dL RDW 12.8 (11.5-14.5) % Plt Count 283 (140-400) K/mcL MPV 9.4 (9.4-12.4) fL Immature Gran % 0.2 (0-4) % Seg Neutrophils % 76.0 % Lymphocytes % 14.1 % Monocytes % 5.3 % Eosinophils % 3.8 % Basophils % 0.6 % Neutrophils # 7.5 (1.6-8.9) K/mcL Lymphocytes # 1.4 (0.6-4.6) K/mcL Monocytes # 0.5 (0.0-1.3) K/mcL Eosinophils # 0.4 (0.0-0.6) K/mcL Basophils # 0.1 (0.0-0.2) K/mcL PT 19.7 H (9.4-12.1) Seconds INR 1.7 APTT 36.6 H (26.0-36.0) Seconds Sodium 135 L (136-145) mEq/L Potassium 4.2 (3.5-5.1) mEq/L Chloride 104 (98-107) mEq/L Carbon Dioxide 22 L (23-29) mEq/L BUN 13 (8-23) mg/dL Creatinine 0.78 (0.60-1.20) mg/dL Est GFR ( Amer) > 60 (> 60) Est GFR (Non-Af Amer) > 60 (> 60) BUN/Creatinine Ratio 17 (6-26) Glucose 94 (70-105) mg/dL Calculated Osmolality 280 (280-300) Calcium 9.6 (8.6-10.3) mg/dL Troponin I < 0.03 (< 0.04) ng/mL - EKG Data EKG attestation: Yes I reviewed and interpreted this EKG. EKG results narrative: Heart rate 93 beats for minute. Normal sinus rhythm. No ST elevation or ST depression noted. EKG similar appearance to EKG from 11/27/2017.
--- NOTE | 2018-04-11 18:10 | Emergency Department Note ---
Disposition Clinical Impression: Acute exacerbation of chronic obstructive airways disease, Acute dyspnea Disposition: Still a Patient Condition: Good General Adult HPI - General Chief complaint: ED Shortness of Breath/Dyspnea Stated complaint: ENZO Time Seen by Provider: 04/11/18 17:30 Source: patient Mode of arrival: ambulatory Limitations: no limitations - History of Present Illness Pain Scale: 7 - Related Data Home Medications Medication Instructions Recorded Confirmed Aspirin Enteric Coated [Aspirin EC] 81 mg PO DAILY #0 07/20/15 04/12/18 Tramadol HCl [Ultram] 50 mg PO Q4H PRN #0 07/20/15 04/12/18 Albuterol Sulfate [Albuterol 2 puff IH Q4HR PRN 08/16/16 04/12/18 Inhaler] Fluticasone/Vilanterol [Breo 1 each IH DAILY 11/27/17 04/12/18 Ellipta 200-25 Mcg INH] Ipratropium/Albuterol Neb [Duoneb] 3 ml IH Q4HR 11/27/17 04/12/18 LORazepam [Ativan] 1 mg PO BID PRN 11/27/17 04/12/18 Oxygen 2 l NS HS 11/27/17 04/12/18 Metoprolol [Lopressor] 12.5 mg PO BID 01/01/18 04/12/18 Ondansetron HCl [Zofran] 4 mg PO DAILY PRN 04/12/18 04/12/18 Oxybutynin Chloride [Ditropan Xl] 5 mg PO DAILY 04/12/18 04/12/18 Previous Rx's Medication Instructions Recorded Enoxaparin [Lovenox *PHARMACY WT 60 mg SQ Q12HR #28 mg 04/13/18 BASED*] GuaiFENesin ER [Mucinex] 600 mg PO BID PRN #60 tbbp.12hr 04/13/18 predniSONE [PredniSONE] 10 mg PO DAILY #27 tablet 04/13/18 Azithromycin 250 mg PO DAILY #4 tablet 04/14/18 Allergies Allergy/AdvReac Type Severity Reaction Status Date / Time Hydromorphone [From Dilaudid] Allergy Rash Verified 04/11/18 17:22 nitrofurantoin Allergy Anaphylaxis Verified 04/11/18 17:22 [From Macrodantin] Erythromycin Base AdvReac Gastrointestinal Verified 04/11/18 17:22 Upset Penicillins AdvReac Gastrointestinal Verified 04/11/18 17:22 Upset Constitutional: Denies: fever, chills, weakness ENT ED: Denies: congestion Cardiovascular: Denies: chest pain, dyspnea on exertion, edema, syncope Respiratory: Reports: dyspnea, wheezes. Denies: cough, hemoptysis, sputum production Gastrointestinal: Denies: abdominal pain, nausea Genitourinary: Denies: urgency, dysuria Musculoskeletal: Denies: back pain, neck pain Integumentary: Denies: rash Neurological: Denies: headache Past Medical History - Past Medical History Medical history: Reports: COPD, coronary artery disease, fibromyalgia, GERD, hyperlipidemia, myocardial infarction, pulmonary embolus, other Surgical history: Reports: angioplasty/stent, appendectomy, hysterectomy Psychiatric history: Reports: anxiety, depression - Social History Smoking Status: Current every day smoker Smokeless Tobacco Status: No Alcohol use: Reports: none Drug use: Reports: none Physical Exam - General Limitations: no limitations General appearance: alert, in distress (Mild respiratory) Course Vital Signs Temperature 99.5 F 04/11/18 17:22 Pulse Rate 110 04/11/18 17:22 Respiratory Rate 26 04/11/18 17:22 Blood Pressure 129/75 04/11/18 17:22 O2 Sat by Pulse Oximetry 90 04/11/18 17:22 Temperature 99.5 F 04/14/18 11:43 Pulse Rate 84 04/14/18 11:43 Respiratory Rate 16 04/14/18 11:43 Blood Pressure 113/65 04/14/18 11:43 O2 Sat by Pulse Oximetry 92 04/14/18 11:43 Oxygen Delivery Oxygen Delivery Nasal Cannula Medical Decision Making - Lab Data Result diagrams: 04/14/18 05:28 04/14/18 05:28 Lab Results 04/11/18 04/11/18 04/11/18 Range/Units 17:37 17:37 17:37 WBC 9.8 D (4.3-11.1) K/mcL RBC 4.35 (3.82-4.97) M/mcL Hgb 14.2 D (11.5-15.4) g/dL Hct 41.0 (35.3-44.9) % MCV 94.3 (83.0-100.0) fL MCH 32.6 (28.0-33.3) pg MCHC 34.6 (31.6-35.5) g/dL RDW 12.8 (11.5-14.5) % Plt Count 283 (140-400) K/mcL MPV 9.4 (9.4-12.4) fL Immature Gran % 0.2 (0-4) % Seg Neutrophils % 76.0 % Lymphocytes % 14.1 % Monocytes % 5.3 % Eosinophils % 3.8 % Basophils % 0.6 % Neutrophils # 7.5 (1.6-8.9) K/mcL Lymphocytes # 1.4 (0.6-4.6) K/mcL Monocytes # 0.5 (0.0-1.3) K/mcL Eosinophils # 0.4 (0.0-0.6) K/mcL Basophils # 0.1 (0.0-0.2) K/mcL PT 19.7 H (9.4-12.1) Seconds INR 1.7 APTT 36.6 H (26.0-36.0) Seconds Sodium 135 L (136-145) mEq/L Potassium 4.2 (3.5-5.1) mEq/L Chloride 104 (98-107) mEq/L Carbon Dioxide 22 L (23-29) mEq/L BUN 13 (8-23) mg/dL Creatinine 0.78 (0.60-1.20) mg/dL Est GFR ( Amer) > 60 (> 60) Est GFR (Non-Af Amer) > 60 (> 60) BUN/Creatinine Ratio 17 (6-26) Glucose 94 (70-105) mg/dL Calculated Osmolality 280 (280-300) Calcium 9.6 (8.6-10.3) mg/dL Phosphorus (2.7-4.5) mg/dL Magnesium (1.6-2.6) mg/dL Total Bilirubin (0.3-1.0) mg/dL AST (13-39) Units/L ALT (7-52) Units/L Alkaline Phosphatase (34-104) Units/L Troponin I < 0.03 (< 0.04) ng/mL Serum Total Protein (6.4-8.9) g/dL Albumin (3.5-5.7) g/dL Globulin (2.4-3.5) g/dL Albumin/Globulin Ratio (1.1-2.2) Triglycerides (< 150) mg/dL Cholesterol (< 200) mg/dL LDL Cholesterol, Calc (0-99) mg/dL VLDL Cholesterol, Calc (< 31) mg/dL HDL Cholesterol (40-59) mg/dL Cholesterol/HDL Ratio (0-4.9) Fluid Source Fluid Volume mL Fluid Appearance (Clear) Fluid RBC Fld Tot Nucleated Cell Fluid Seg Neutrophil % % Fld Band Neutrophil % Fluid Lymphocytes % % Fluid Monocytes % % Fluid Eosinophils % Fluid Basophils % Fluid Other Cells % % Specimen Rejected 04/12/18 04/12/18 04/12/18 Range/Units 05:33 05:33 05:33 WBC 4.2 L D (4.3-11.1) K/mcL RBC 4.09 (3.82-4.97) M/mcL Hgb 13.3 (11.5-15.4) g/dL Hct 38.3 (35.3-44.9) % MCV 93.6 (83.0-100.0) fL MCH 32.5 (28.0-33.3) pg MCHC 34.7 (31.6-35.5) g/dL RDW 12.5 (11.5-14.5) % Plt Count 273 (140-400) K/mcL MPV 9.2 L (9.4-12.4) fL Immature Gran % 0.2 (0-4) % Seg Neutrophils % 77.7 % Lymphocytes % 19.5 % Monocytes % 2.4 % Eosinophils % 0.0 % Basophils % 0.2 % Neutrophils # 3.3 (1.6-8.9) K/mcL Lymphocytes # 0.8 (0.6-4.6) K/mcL Monocytes # 0.1 (0.0-1.3) K/mcL Eosinophils # 0.0 (0.0-0.6) K/mcL Basophils # 0.0 (0.0-0.2) K/mcL PT 19.6 H (9.4-12.1) Seconds INR 1.7 APTT 37.2 H (26.0-36.0) Seconds Sodium 136 (136-145) mEq/L Potassium 4.1 (3.5-5.1) mEq/L Chloride 110 H (98-107) mEq/L Carbon Dioxide 22 L (23-29) mEq/L BUN 14 (8-23) mg/dL Creatinine 0.62 (0.60-1.20) mg/dL Est GFR ( Amer) > 60 (> 60) Est GFR (Non-Af Amer) > 60 (> 60) BUN/Creatinine Ratio 23 (6-26) Glucose 150 H (70-105) mg/dL Calculated Osmolality 285 (280-300) Calcium 9.4 (8.6-10.3) mg/dL Phosphorus 3.4 (2.7-4.5) mg/dL Magnesium 1.9 (1.6-2.6) mg/dL Total Bilirubin 0.4 (0.3-1.0) mg/dL AST 11 L (13-39) Units/L ALT 8 (7-52) Units/L Alkaline Phosphatase 50 (34-104) Units/L Troponin I (< 0.04) ng/mL Serum Total Protein 6.5 (6.4-8.9) g/dL Albumin 3.8 (3.5-5.7) g/dL Globulin 2.7 (2.4-3.5) g/dL Albumin/Globulin Ratio 1.4 (1.1-2.2) Triglycerides 74 (< 150) mg/dL Cholesterol 201 H (< 200) mg/dL LDL Cholesterol, Calc 135 H (0-99) mg/dL VLDL Cholesterol, Calc 15 (< 31) mg/dL HDL Cholesterol 51 (40-59) mg/dL Cholesterol/HDL Ratio 3.9 (0-4.9) Fluid Source Fluid Volume mL Fluid Appearance (Clear) Fluid RBC Fld Tot Nucleated Cell Fluid Seg Neutrophil % % Fld Band Neutrophil % Fluid Lymphocytes % % Fluid Monocytes % % Fluid Eosinophils % Fluid Basophils % Fluid Other Cells % % Specimen Rejected 04/12/18 04/12/18 04/12/18 Range/Units 13:23 13:23 20:08 WBC 8.6 D (4.3-11.1) K/mcL RBC 4.24 (3.82-4.97) M/mcL Hgb 13.8 (11.5-15.4) g/dL Hct 39.6 (35.3-44.9) % MCV 93.4 (83.0-100.0) fL MCH 32.5 (28.0-33.3) pg MCHC 34.8 (31.6-35.5) g/dL RDW 12.8 (11.5-14.5) % Plt Count 268 (140-400) K/mcL MPV 9.7 (9.4-12.4) fL Immature Gran % (0-4) % Seg Neutrophils % % Lymphocytes % % Monocytes % % Eosinophils % % Basophils % % Neutrophils # (1.6-8.9) K/mcL Lymphocytes # (0.6-4.6) K/mcL Monocytes # (0.0-1.3) K/mcL Eosinophils # (0.0-0.6) K/mcL Basophils # (0.0-0.2) K/mcL PT 20.5 H 20.9 H (9.4-12.1) Seconds INR 1.8 1.9 APTT 35.3 (26.0-36.0) Seconds Sodium (136-145) mEq/L Potassium (3.5-5.1) mEq/L Chloride (98-107) mEq/L Carbon Dioxide (23-29) mEq/L BUN (8-23) mg/dL Creatinine (0.60-1.20) mg/dL Est GFR ( Amer) (> 60) Est GFR (Non-Af Amer) (> 60) BUN/Creatinine Ratio (6-26) Glucose (70-105) mg/dL Calculated Osmolality (280-300) Calcium (8.6-10.3) mg/dL Phosphorus (2.7-4.5) mg/dL Magnesium (1.6-2.6) mg/dL Total Bilirubin (0.3-1.0) mg/dL AST (13-39) Units/L ALT (7-52) Units/L Alkaline Phosphatase (34-104) Units/L Troponin I (< 0.04) ng/mL Serum Total Protein (6.4-8.9) g/dL Albumin (3.5-5.7) g/dL Globulin (2.4-3.5) g/dL Albumin/Globulin Ratio (1.1-2.2) Triglycerides (< 150) mg/dL Cholesterol (< 200) mg/dL LDL Cholesterol, Calc (0-99) mg/dL VLDL Cholesterol, Calc (< 31) mg/dL HDL Cholesterol (40-59) mg/dL Cholesterol/HDL Ratio (0-4.9) Fluid Source Fluid Volume mL Fluid Appearance (Clear) Fluid RBC Fld Tot Nucleated Cell Fluid Seg Neutrophil % % Fld Band Neutrophil % Fluid Lymphocytes % % Fluid Monocytes % % Fluid Eosinophils % Fluid Basophils % Fluid Other Cells % % Specimen Rejected 04/12/18 04/13/18 04/13/18 Range/Units 20:08 04:40 06:02 WBC 9.2 (4.3-11.1) K/mcL RBC 4.03 (3.82-4.97) M/mcL Hgb 12.8 (11.5-15.4) g/dL Hct 38.2 (35.3-44.9) % MCV 94.8 (83.0-100.0) fL MCH 31.8 (28.0-33.3) pg MCHC 33.5 (31.6-35.5) g/dL RDW 13.0 (11.5-14.5) % Plt Count 269 (140-400) K/mcL MPV 9.6 (9.4-12.4) fL Immature Gran % 0.3 (0-4) % Seg Neutrophils % 71.2 % Lymphocytes % 23.2 % Monocytes % 5.1 % Eosinophils % 0.0 % Basophils % 0.2 % Neutrophils # 6.5 (1.6-8.9) K/mcL Lymphocytes # 2.1 (0.6-4.6) K/mcL Monocytes # 0.5 (0.0-1.3) K/mcL Eosinophils # 0.0 (0.0-0.6) K/mcL Basophils # 0.0 (0.0-0.2) K/mcL PT (9.4-12.1) Seconds INR APTT 59.9 H D (26.0-36.0) Seconds Sodium (136-145) mEq/L Potassium (3.5-5.1) mEq/L Chloride (98-107) mEq/L Carbon Dioxide (23-29) mEq/L BUN (8-23) mg/dL Creatinine (0.60-1.20) mg/dL Est GFR ( Amer) (> 60) Est GFR (Non-Af Amer) (> 60) BUN/Creatinine Ratio (6-26) Glucose (70-105) mg/dL Calculated Osmolality (280-300) Calcium (8.6-10.3) mg/dL Phosphorus (2.7-4.5) mg/dL Magnesium (1.6-2.6) mg/dL Total Bilirubin (0.3-1.0) mg/dL AST (13-39) Units/L ALT (7-52) Units/L Alkaline Phosphatase (34-104) Units/L Troponin I (< 0.04) ng/mL Serum Total Protein (6.4-8.9) g/dL Albumin (3.5-5.7) g/dL Globulin (2.4-3.5) g/dL Albumin/Globulin Ratio (1.1-2.2) Triglycerides (< 150) mg/dL Cholesterol (< 200) mg/dL LDL Cholesterol, Calc (0-99) mg/dL VLDL Cholesterol, Calc (< 31) mg/dL HDL Cholesterol (40-59) mg/dL Cholesterol/HDL Ratio (0-4.9) Fluid Source Fluid Volume mL Fluid Appearance (Clear) Fluid RBC Fld Tot Nucleated Cell Fluid Seg Neutrophil % % Fld Band Neutrophil % Fluid Lymphocytes % % Fluid Monocytes % % Fluid Eosinophils % Fluid Basophils % Fluid Other Cells % % Specimen Rejected Hemolyzed 04/13/18 04/13/18 04/13/18 Range/Units 06:23 08:30 11:34 WBC (4.3-11.1) K/mcL RBC (3.82-4.97) M/mcL Hgb (11.5-15.4) g/dL Hct (35.3-44.9) % MCV (83.0-100.0) fL MCH (28.0-33.3) pg MCHC (31.6-35.5) g/dL RDW (11.5-14.5) % Plt Count (140-400) K/mcL MPV (9.4-12.4) fL Immature Gran % (0-4) % Seg Neutrophils % % Lymphocytes % % Monocytes % % Eosinophils % % Basophils % % Neutrophils # (1.6-8.9) K/mcL Lymphocytes # (0.6-4.6) K/mcL Monocytes # (0.0-1.3) K/mcL Eosinophils # (0.0-0.6) K/mcL Basophils # (0.0-0.2) K/mcL PT 19.3 H (9.4-12.1) Seconds INR 1.7 APTT (26.0-36.0) Seconds Sodium 138 (136-145) mEq/L Potassium 3.8 (3.5-5.1) mEq/L Chloride 109 H (98-107) mEq/L Carbon Dioxide 24 (23-29) mEq/L BUN 18 (8-23) mg/dL Creatinine 0.75 (0.60-1.20) mg/dL Est GFR ( Amer) > 60 (> 60) Est GFR (Non-Af Amer) > 60 (> 60) BUN/Creatinine Ratio 24 (6-26) Glucose 165 H (70-105) mg/dL Calculated Osmolality 292 (280-300) Calcium 9.2 (8.6-10.3) mg/dL Phosphorus (2.7-4.5) mg/dL Magnesium (1.6-2.6) mg/dL Total Bilirubin (0.3-1.0) mg/dL AST (13-39) Units/L ALT (7-52) Units/L Alkaline Phosphatase (34-104) Units/L Troponin I (< 0.04) ng/mL Serum Total Protein (6.4-8.9) g/dL Albumin (3.5-5.7) g/dL Globulin (2.4-3.5) g/dL Albumin/Globulin Ratio (1.1-2.2) Triglycerides (< 150) mg/dL Cholesterol (< 200) mg/dL LDL Cholesterol, Calc (0-99) mg/dL VLDL Cholesterol, Calc (< 31) mg/dL HDL Cholesterol (40-59) mg/dL Cholesterol/HDL Ratio (0-4.9) Fluid Source left upper lobe lung Fluid Volume 15 mL Fluid Appearance Cloudy A (Clear) Fluid RBC [employer] Fld Tot Nucleated Cell [employer] Fluid Seg Neutrophil % 87.0 % Fld Band Neutrophil % Test Not Performed Fluid Lymphocytes % 4.0 % Fluid Monocytes % 5.0 % Fluid Eosinophils % Test Not Performed Fluid Basophils % Test Not Performed Fluid Other Cells % 4.0 % Specimen Rejected Attestation Statement - Attestation Attestation: I examined this patient and my medical decision-making was reviewed with the Resident Physician. I agree with the documented findings, disposition and treatment plan as described except to the extent set forth below. Patient to the ED with a chief complaint of shortness of breath since this morning. Concerned because she has a history of PE. Patient also has COPD. On examination she has diffuse wheezing. She does not appear to be in any distress. Plan. Cardiac workup. Nebs and steroids. CTA chest. Will sign out to child care center administrator.
[2018-04-11 18:14] LABS: Basophils # 0.1 K/mcL (0.0-0.2); Basophils % 0.6 %; Eosinophils # 0.4 K/mcL (0.0-0.6); Eosinophils % 3.8 %; Immature Granulocytes % 0.2 % (0-4); Lymphocytes # 1.4 K/mcL (0.6-4.6); Lymphocytes % 14.1 %; Mean Corpuscular HGB Conc 34.6 g/dL (31.6-35.5); Mean Corpuscular Hemoglobin 32.6 pg (28.0-33.3); Mean Corpuscular Volume 94.3 fL (83.0-100.0); Mean Platelet Volume 9.4 fL (9.4-12.4); Monocytes # 0.5 K/mcL (0.0-1.3); Monocytes % 5.3 %; Platelet Count 283 K/mcL (140-400); Red Blood Count 4.35 M/mcL (3.82-4.97); Red Cell Distribution Width 12.8 % (11.5-14.5)
[2018-04-11 18:15] LABS: Hemoglobin 14.2 g/dL (11.5-15.4); Neutrophils # 7.5 K/mcL (1.6-8.9)
[2018-04-11 18:29] LABS: INR 1.7; Prothrombin Time 19.7 Seconds (9.4-12.1)
[2018-04-11 18:32] LABS: Activated Partial Thrombo Time 36.6 Seconds (26.0-36.0)
[2018-04-11 18:36] LABS: BUN/Creatinine Ratio 17 (6-26); Blood Urea Nitrogen 13 mg/dL (8-23); Calcium 9.6 mg/dL (8.6-10.3); Carbon Dioxide 22 mEq/L (23-29); Chloride 104 mEq/L (98-107); Glucose 94 mg/dL (70-105); Osmolality,Calculated 280 (280-300); Potassium 4.2 mEq/L (3.5-5.1); Sodium 135 mEq/L (136-145); eGFR For African Americans > 60 (> 60); eGFR For Non-African Americans > 60 (> 60)
[2018-04-11 18:37] LABS: Troponin I < 0.03 ng/mL (< 0.04)
--- NOTE | 2018-04-11 19:48 | Emergency Department Note ---
Disposition Clinical Impression: Acute exacerbation of chronic obstructive airways disease, Acute dyspnea Disposition: Admitted As Inpatient Condition: Fair Referrals: Kemar,Arelis Monge CNP [Primary Care Provider] - Forms: ED Satisfaction Letter Time of Disposition: 19:48 General Adult HPI - General Chief complaint: ED Shortness of Breath/Dyspnea Stated complaint: ENZO Time Seen by Provider: 04/11/18 17:30 Source: patient Mode of arrival: ambulatory Limitations: no limitations Nursing Notes Reviewed: Yes Vital Signs Reviewed: Yes - History of Present Illness Pain Scale: 7 - Related Data Home Medications Medication Instructions Recorded Confirmed Aspirin Enteric Coated [Aspirin EC] 81 mg PO DAILY #0 07/20/15 04/10/18 Tramadol HCl [Ultram] 50 mg PO Q4H PRN #0 07/20/15 04/10/18 Albuterol Sulfate [Albuterol 2 puff IH Q4HR PRN 08/16/16 04/10/18 Inhaler] Fluticasone/Vilanterol [Breo 1 each IH DAILY 11/27/17 04/10/18 Ellipta 200-25 Mcg INH] Ipratropium/Albuterol Neb [Duoneb] 3 ml IH Q6H PRN 11/27/17 04/10/18 LORazepam [Ativan] 1 mg PO BID PRN 11/27/17 04/10/18 Oxygen 2 l NS AD 11/27/17 04/10/18 Metoprolol [Lopressor] 12.5 mg PO BID 01/01/18 04/10/18 Warfarin [Coumadin] 2 mg PO 5XW 01/01/18 04/10/18 Warfarin [Coumadin] 2.5 mg PO 2XW 01/01/18 04/10/18 Allergies Allergy/AdvReac Type Severity Reaction Status Date / Time Hydromorphone [From Dilaudid] Allergy Rash Verified 04/11/18 17:22 nitrofurantoin Allergy Anaphylaxis Verified 04/11/18 17:22 [From Macrodantin] Erythromycin Base AdvReac Gastrointestinal Verified 04/11/18 17:22 Upset Penicillins AdvReac Gastrointestinal Verified 04/11/18 17:22 Upset Constitutional: Denies: fever, chills, weakness ENT ED: Denies: congestion Cardiovascular: Denies: chest pain, dyspnea on exertion, edema, syncope Respiratory: Reports: dyspnea, wheezes. Denies: cough, hemoptysis, sputum production Gastrointestinal: Denies: abdominal pain, nausea Genitourinary: Denies: urgency, dysuria Musculoskeletal: Denies: back pain, neck pain Integumentary: Denies: rash Neurological: Denies: headache Past Medical History - Past Medical History Medical history: Reports: COPD, coronary artery disease, fibromyalgia, GERD, hyperlipidemia, myocardial infarction, pulmonary embolus, other Surgical history: Reports: angioplasty/stent, appendectomy, hysterectomy Psychiatric history: Reports: anxiety, depression - Social History Smoking Status: Current every day smoker Smokeless Tobacco Status: No Alcohol use: Reports: none Drug use: Reports: none Physical Exam - General Limitations: no limitations General appearance: alert, in distress (Mild respiratory) Course Course Narrative: Patient was received in sign out. Her main presentation for today shortness of breath she is picked up by squad her house reported to have oxygen saturation in the mid 80s while on 2 L nasal cannula which is her home oxygen. While the emergency department the patient was tachycardic and did require increase in amount of oxygen up to 3 L nasal cannula to remain at 90%. She was started on a workup for COPD versus PE evaluation. She is given steroids and breathing treatments. Her CT of her chest was negative. It was reported that her cancer has appeared to enlarge in size. She does follow along with [facility]. I discussed with the patient plan to admit her for COPD exacerbation. CT of chest was negative for PE. Patient agrees with this plan. Vital Signs Temperature 99.5 F 04/11/18 17:22 Pulse Rate 110 04/11/18 17:22 Respiratory Rate 26 04/11/18 17:22 Blood Pressure 129/75 04/11/18 17:22 O2 Sat by Pulse Oximetry 90 04/11/18 17:22 Temperature 99.5 F 04/11/18 17:52 Pulse Rate 110 04/11/18 17:52 Respiratory Rate 18 04/11/18 18:04 Blood Pressure 129/75 04/11/18 17:52 O2 Sat by Pulse Oximetry 90 04/11/18 18:04 Oxygen Delivery Oxygen Delivery Room Air Medical Decision Making - Medical Records Medical records reviewed: Yes I reviewed the patient's medical records. - Lab Data Lab results reviewed: Yes I reviewed the patient's lab results. Result diagrams: 04/11/18 17:37 04/11/18 17:37 Lab Results 04/11/18 04/11/18 04/11/18 Range/Units 17:37 17:37 17:37 WBC 9.8 D (4.3-11.1) K/mcL RBC 4.35 (3.82-4.97) M/mcL Hgb 14.2 D (11.5-15.4) g/dL Hct 41.0 (35.3-44.9) % MCV 94.3 (83.0-100.0) fL MCH 32.6 (28.0-33.3) pg MCHC 34.6 (31.6-35.5) g/dL RDW 12.8 (11.5-14.5) % Plt Count 283 (140-400) K/mcL MPV 9.4 (9.4-12.4) fL Immature Gran % 0.2 (0-4) % Seg Neutrophils % 76.0 % Lymphocytes % 14.1 % Monocytes % 5.3 % Eosinophils % 3.8 % Basophils % 0.6 % Neutrophils # 7.5 (1.6-8.9) K/mcL Lymphocytes # 1.4 (0.6-4.6) K/mcL Monocytes # 0.5 (0.0-1.3) K/mcL Eosinophils # 0.4 (0.0-0.6) K/mcL Basophils # 0.1 (0.0-0.2) K/mcL PT 19.7 H (9.4-12.1) Seconds INR 1.7 APTT 36.6 H (26.0-36.0) Seconds Sodium 135 L (136-145) mEq/L Potassium 4.2 (3.5-5.1) mEq/L Chloride 104 (98-107) mEq/L Carbon Dioxide 22 L (23-29) mEq/L BUN 13 (8-23) mg/dL Creatinine 0.78 (0.60-1.20) mg/dL Est GFR ( Amer) > 60 (> 60) Est GFR (Non-Af Amer) > 60 (> 60) BUN/Creatinine Ratio 17 (6-26) Glucose 94 (70-105) mg/dL Calculated Osmolality 280 (280-300) Calcium 9.6 (8.6-10.3) mg/dL Troponin I < 0.03 (< 0.04) ng/mL - Radiology Data Radiology results reviewed: Yes I reviewed the patient's radiology results. Chest CTA 04/11/18 17:37 IMPRESSION: 1. Negative for pulmonary embolic disease. 2. The known left lower lobe pulmonary malignancy has increased in size since the prior exam, currently measuring 2.4 x 1.4 cm compared with 2.1 x 1.3 cm. 3. Small left hilar lymph nodes have slightly increased in the interim. D/ / 04/11/2018 19:00:14 Sharad Terry MD / sergo Interpreting Provider: Sharad Terry MD SBandar - SBandar Situation: Demographics, MOA Background: Presenting Complaint, Relevant PMH, Meds, & Allergies Assessment: Vital Signs, Course and respsone to treatment, Exam Concerns, Patient/Family Expectation, Pertinant Lab Results, Outstanding Labs Recommendation: Barrier(s) to disposition, Recommendation based on pending studies, treatments, or consults [email or web address] Report Given to: Anam Louise Repor Time: 19:48
--- NOTE | 2018-04-11 19:52 | Emergency Department Note ---
Disposition Clinical Impression: Acute exacerbation of chronic obstructive airways disease, Acute dyspnea Disposition: Admitted As Inpatient Condition: Fair Referrals: Kemar,Arelis Monge CNP [Primary Care Provider] - Forms: ED Satisfaction Letter General Adult HPI - General Chief complaint: ED Shortness of Breath/Dyspnea Stated complaint: ENZO Time Seen by Provider: 04/11/18 17:30 Source: patient Mode of arrival: ambulatory Limitations: no limitations Nursing Notes Reviewed: Yes Vital Signs Reviewed: Yes - History of Present Illness Pain Scale: 7 - Related Data Home Medications Medication Instructions Recorded Confirmed Aspirin Enteric Coated [Aspirin EC] 81 mg PO DAILY #0 07/20/15 04/10/18 Tramadol HCl [Ultram] 50 mg PO Q4H PRN #0 07/20/15 04/10/18 Albuterol Sulfate [Albuterol 2 puff IH Q4HR PRN 08/16/16 04/10/18 Inhaler] Fluticasone/Vilanterol [Breo 1 each IH DAILY 11/27/17 04/10/18 Ellipta 200-25 Mcg INH] Ipratropium/Albuterol Neb [Duoneb] 3 ml IH Q6H PRN 11/27/17 04/10/18 LORazepam [Ativan] 1 mg PO BID PRN 11/27/17 04/10/18 Oxygen 2 l NS AD 11/27/17 04/10/18 Metoprolol [Lopressor] 12.5 mg PO BID 01/01/18 04/10/18 Warfarin [Coumadin] 2 mg PO 5XW 01/01/18 04/10/18 Warfarin [Coumadin] 2.5 mg PO 2XW 01/01/18 04/10/18 Allergies Allergy/AdvReac Type Severity Reaction Status Date / Time Hydromorphone [From Dilaudid] Allergy Rash Verified 04/11/18 17:22 nitrofurantoin Allergy Anaphylaxis Verified 04/11/18 17:22 [From Macrodantin] Erythromycin Base AdvReac Gastrointestinal Verified 04/11/18 17:22 Upset Penicillins AdvReac Gastrointestinal Verified 04/11/18 17:22 Upset Constitutional: Denies: fever, chills, weakness ENT ED: Denies: congestion Cardiovascular: Denies: chest pain, dyspnea on exertion, edema, syncope Respiratory: Reports: dyspnea, wheezes. Denies: cough, hemoptysis, sputum production Gastrointestinal: Denies: abdominal pain, nausea Genitourinary: Denies: urgency, dysuria Musculoskeletal: Denies: back pain, neck pain Integumentary: Denies: rash Neurological: Denies: headache Past Medical History - Past Medical History Medical history: Reports: COPD, coronary artery disease, fibromyalgia, GERD, hyperlipidemia, myocardial infarction, pulmonary embolus, other Surgical history: Reports: angioplasty/stent, appendectomy, hysterectomy Psychiatric history: Reports: anxiety, depression - Social History Smoking Status: Current every day smoker Smokeless Tobacco Status: No Alcohol use: Reports: none Drug use: Reports: none Physical Exam - General Limitations: no limitations General appearance: alert, in distress (Mild respiratory) Course Vital Signs Temperature 99.5 F 04/11/18 17:22 Pulse Rate 110 04/11/18 17:22 Respiratory Rate 26 04/11/18 17:22 Blood Pressure 129/75 04/11/18 17:22 O2 Sat by Pulse Oximetry 90 04/11/18 17:22 Temperature 99.5 F 04/11/18 17:52 Pulse Rate 110 04/11/18 17:52 Respiratory Rate 18 04/11/18 18:04 Blood Pressure 129/75 04/11/18 17:52 O2 Sat by Pulse Oximetry 90 04/11/18 18:04 Oxygen Delivery Oxygen Delivery Room Air Medical Decision Making - Lab Data Result diagrams: 04/11/18 17:37 04/11/18 17:37 Lab Results 04/11/18 04/11/18 04/11/18 Range/Units 17:37 17:37 17:37 WBC 9.8 D (4.3-11.1) K/mcL RBC 4.35 (3.82-4.97) M/mcL Hgb 14.2 D (11.5-15.4) g/dL Hct 41.0 (35.3-44.9) % MCV 94.3 (83.0-100.0) fL MCH 32.6 (28.0-33.3) pg MCHC 34.6 (31.6-35.5) g/dL RDW 12.8 (11.5-14.5) % Plt Count 283 (140-400) K/mcL MPV 9.4 (9.4-12.4) fL Immature Gran % 0.2 (0-4) % Seg Neutrophils % 76.0 % Lymphocytes % 14.1 % Monocytes % 5.3 % Eosinophils % 3.8 % Basophils % 0.6 % Neutrophils # 7.5 (1.6-8.9) K/mcL Lymphocytes # 1.4 (0.6-4.6) K/mcL Monocytes # 0.5 (0.0-1.3) K/mcL Eosinophils # 0.4 (0.0-0.6) K/mcL Basophils # 0.1 (0.0-0.2) K/mcL PT 19.7 H (9.4-12.1) Seconds INR 1.7 APTT 36.6 H (26.0-36.0) Seconds Sodium 135 L (136-145) mEq/L Potassium 4.2 (3.5-5.1) mEq/L Chloride 104 (98-107) mEq/L Carbon Dioxide 22 L (23-29) mEq/L BUN 13 (8-23) mg/dL Creatinine 0.78 (0.60-1.20) mg/dL Est GFR ( Amer) > 60 (> 60) Est GFR (Non-Af Amer) > 60 (> 60) BUN/Creatinine Ratio 17 (6-26) Glucose 94 (70-105) mg/dL Calculated Osmolality 280 (280-300) Calcium 9.6 (8.6-10.3) mg/dL Troponin I < 0.03 (< 0.04) ng/mL Attestation Statement - Attestation Attestation: I, Jarvis Ramirez MD, personally evaluated this patient and discussed their management with the resident physician. I reviewed the resident's note and agree with the documented findings, medical decision making, and plan of care. This patient was signed out at shift change from Dr. Lopez and Dr. Mendoza. Please refer to their notes for complete details of the history and physical examination. At shift change patient is awaiting a CTA to rule out pulmonary embolism. The CTA returned and was negative for pulmonary embolism. It did show some increase in size of her left lower lobe malignancy. On examination patient is a well-developed well-nourished well-appearing elderly female in no acute distress. She is alert and oriented 3. There is no cyanosis or diaphoresis. Breath sounds are decreased bilaterally with coarse bilateral expiratory wheezes and a few scattered inspiratory wheezes. Heart regular rate and rhythm. Abdomen soft and nontender with normal bowel sounds. The hospitalist, Dr. Randolph, was consulted and accepted admission of the patient.
--- NOTE | 2018-04-11 20:53 | Internal Med History&Physical ---
Date of Encounter: 04/11/18 Time of Encounter: 08:00 Internal Medicine - H&P: HPI Chief complaint: sob History of present illness: Ms. Rodriguez is a 73 year old female with h/o COPD and lung cancer who presented with shortness of breath and hypoxia with oxygen saturation in the mid 80s while on 2 L nasal cannula which is her home oxygen. While the emergency department she required increase of oxygen up to 3 L nasal cannula to remain at 90%. She was started on steroid for COPD exacerbation and CTA was orderd for PE evaluation. Past Med Surg Social Fam HX - Past Medical History Medical history: cancer, COPD, coronary artery disease, fibromyalgia, GERD, hyperlipidemia, myocardial infarction, pulmonary embolus, other Additional medical history: SMOKER Psychiatric history: anxiety, depression - Past Surgical History Surgical History: angioplasty/stent, appendectomy, hysterectomy Additional surgical history: BREAST BIOPSY. 3 cardiac stents - Social History Smoking Status: Current every day smoker Smokeless Tobacco Status: No Alcohol use: none Drug use: none - Family History Mother Hx Family Cardiac Disorders: Yes ([place]) Hx Family Respiratory Disorders: Yes (lung cancer) Hx Family Cancer: Yes (Lung ca) Father Hx Family Cancer: Yes (lung) Internal Medicine - H&P: Meds Aspirin Enteric Coated [Aspirin EC] 81 mg PO DAILY #0 07/20/15 [History] Tramadol HCl [Ultram] 50 mg PO Q4H PRN #0 07/20/15 [History] Albuterol Sulfate [Albuterol Inhaler] 2 puff IH Q4HR PRN 08/16/16 [History] Fluticasone/Vilanterol [Breo Ellipta 200-25 Mcg INH] 1 each IH DAILY 11/27/17 [ History] Ipratropium/Albuterol Neb [Duoneb] 3 ml IH Q4HR 11/27/17 [History] LORazepam [Ativan] 1 mg PO BID PRN 11/27/17 [History] Oxygen 2 l NS HS 11/27/17 [History] Metoprolol [Lopressor] 12.5 mg PO BID 01/01/18 [History] Warfarin [Coumadin] 2 mg PO 5XW 01/01/18 [History] Warfarin [Coumadin] 2.5 mg PO 2XW 01/01/18 [History] 3 Allergy/AdvReac Type Severity Reaction Status Date / Time Hydromorphone [From Dilaudid] Allergy Rash Verified 04/11/18 17:22 nitrofurantoin Allergy Anaphylaxis Verified 04/11/18 17:22 [From Macrodantin] Erythromycin Base AdvReac Gastrointestinal Verified 04/11/18 17:22 Upset Penicillins AdvReac Gastrointestinal Verified 04/11/18 17:22 Upset All Systems PM: A 10-system review of systems was performed and is negative for pertinent findings except as documented above in the HPI. - Constitutional Vitals: Temp Pulse Resp BP Pulse Ox 99.5 F 99 18 128/77 93 04/11/18 17:52 04/11/18 19:53 04/11/18 19:53 04/11/18 19:53 04/11/18 19:53 Internal Med - H&P Results - Labs CBC & Chem 7: 04/12/18 05:33 04/11/18 17:37 - Assessment and plan (1) Acute exacerbation of chronic obstructive airways disease Current Visit: Yes Status: Resolved Assessment and plan: ASSESSMENT: - SOB due to *COPD exacerbation caused by URTI, allergen exposure, medication nonocompliance PLAN: - Aerosols q 4 hr and PRN SOB - Solu-medrol 40 mg IV q 6 hr - O2 to keep SpO2 higher than 92% (SpO higher than 95% if CAD) - CBCD, BMP in AM - Sputum Gram stain, C+S - Robitussin 10 cc PO q 4 hr - Tylenol 650 mg PO q 4-6 hr PRN pain/fever - Heparin 5000 U SQ BID - Home meds - check the list and restart - Azithromycine 500 po daily (2) Pulmonary nodule Current Visit: No Status: Suspected Assessment and plan: The patient has h/o PE and CTA today was negative (3) Pulmonary embolism Current Visit: No Status: Acute Qualifiers: Pulmonary embolism type: other Chronicity: acute Acute cor pulmonale presence: without acute cor pulmonale Qualified Code(s): I26.99 - Other pulmonary embolism without acute cor pulmonale (4) CAD (coronary artery disease) Current Visit: No Status: Chronic Qualifiers: Coronary Disease-Associated Artery/Lesion type: [place] artery [place] vs. transplanted heart: [place] heart Associated angina: without angina Qualified Code(s): I25.10 - Atherosclerotic heart disease of [place] coronary artery without angina pectoris (5) DVT prophylaxis Current Visit: No Status: Acute - Time Spent With Patient Total time spent is greater than 50% in coordination of care (as documented) at patient's floor/unit and/or counseling patient:
[2018-04-11] MEDS ORDERED: Naloxone 0.4 MG/ML INJ IVP PRN (21:00)
[2018-04-12] MEDS: Ipratropium/Albuterol Neb 3 ML IH PRN (01:57)
[2018-04-12] MEDS ORDERED: traMADol 50 MG TABLET PO ONE (02:07)
[2018-04-12] MEDS ORDERED: *HR* LORazepam 1 MG TABLET PO PRN (03:51)
[2018-04-12 05:47] LABS: Basophils % 0.2 %; Hematocrit 38.3 % (35.3-44.9); Hemoglobin 13.3 g/dL (11.5-15.4); Immature Granulocytes % 0.2 % (0-4); Lymphocytes # 0.8 K/mcL (0.6-4.6); Lymphocytes % 19.5 %; Mean Corpuscular HGB Conc 34.7 g/dL (31.6-35.5); Mean Corpuscular Hemoglobin 32.5 pg (28.0-33.3); Mean Corpuscular Volume 93.6 fL (83.0-100.0); Mean Platelet Volume 9.2 fL (9.4-12.4); Monocytes # 0.1 K/mcL (0.0-1.3); Monocytes % 2.4 %; Neutrophils # 3.3 K/mcL (1.6-8.9); Platelet Count 273 K/mcL (140-400); Red Blood Count 4.09 M/mcL (3.82-4.97); Red Cell Distribution Width 12.5 % (11.5-14.5); Segmented Neutrophils % 77.7 %
[2018-04-12 05:54] LABS: INR 1.7; Prothrombin Time 19.6 Seconds (9.4-12.1)
[2018-04-12 05:57] LABS: Activated Partial Thrombo Time 37.2 Seconds (26.0-36.0)
[2018-04-12 06:14] LABS: Alanine Aminotransferase 8 Units/L (7-52); Albumin 3.8 g/dL (3.5-5.7); Albumin/Globulin Ratio 1.4 (1.1-2.2); Alkaline Phosphatase 50 Units/L (34-104); Aspartate Amino Transferase 11 Units/L (13-39); BUN/Creatinine Ratio 23 (6-26); Bilirubin,Total 0.4 mg/dL (0.3-1.0); Blood Urea Nitrogen 14 mg/dL (8-23); Calcium 9.4 mg/dL (8.6-10.3); Carbon Dioxide 22 mEq/L (23-29); Chloride 110 mEq/L (98-107); Chol/HDL Ratio 3.9 (0-4.9); Cholesterol 201 mg/dL (< 200); Globulin 2.7 g/dL (2.4-3.5); Glucose 150 mg/dL (70-105); HDL Cholesterol 51 mg/dL (40-59); LDL Cholesterol,Calculated 135 mg/dL (0-99); Magnesium 1.9 mg/dL (1.6-2.6); Osmolality,Calculated 285 (280-300); Phosphorous 3.4 mg/dL (2.7-4.5); Potassium 4.1 mEq/L (3.5-5.1); Sodium 136 mEq/L (136-145); Total Protein 6.5 g/dL (6.4-8.9); Triglycerides 74 mg/dL (< 150); eGFR For African Americans > 60 (> 60); eGFR For Non-African Americans > 60 (> 60)
[2018-04-12] MEDS: Azithromycin 500 MG in D5% in Water 250 ML IVPB SCH (07:07)
[2018-04-12] MEDS: Ipratropium/Albuterol Neb 3 ML IH SCH ×6 (07:40→23:15)
[2018-04-12] MEDS: traMADol 50 MG TABLET PO PRN (08:38)
--- NOTE | 2018-04-12 08:47 | Internal Med Progress Note ---
Date of Encounter: 04/12/18 Time of Encounter: 10:45 - Assessment and plan (1) Acute exacerbation of chronic obstructive airways disease Current Visit: Yes Status: Resolved Assessment and plan: Acute exacerbation of COPD. Pt reports increased SOB and increased 02 demand over baseline. Pt has home 02 and normally wears at night only. Continue telemetry Continue IV antibiotics Continue 02 as needed to maintain sats > 92% Continue Mucinex prn Continue bronchodilators (2) Pulmonary embolism Current Visit: Yes Status: Acute Assessment and plan: Pt with PE of posterior segmental branch of the RLL pulmonary artery diagnoese on 11/27/17. Pt has been taking Coumadin. On arrival INR is subtherapeutic. Chest CTA 04/11/18 negative for PE. Pt has been started on Heparin gtt for subtherapeutic INR. Continue telemetry Qualifiers: Pulmonary embolism type: other Chronicity: chronic Acute cor pulmonale presence: without acute cor pulmonale Qualified Code(s): I27.82 - Chronic pulmonary embolism (3) Pulmonary nodule Current Visit: Yes Status: Suspected Assessment and plan: Chronic. Follow with pulmonology. (4) CAD (coronary artery disease) Current Visit: Yes Status: Chronic Assessment and plan: Pt denies chest pain. Continue telemetry. Continue aspirin and beta jennifer. Qualifiers: Coronary Disease-Associated Artery/Lesion type: [place] artery [place] vs. transplanted heart: [place] heart Associated angina: without angina Qualified Code(s): I25.10 - Atherosclerotic heart disease of [place] coronary artery without angina pectoris (5) Acute and chronic respiratory failure Current Visit: Yes Status: Acute Assessment and plan: Pt requiring supplemental 02 to maintain sats. Documented hypoxia in the ER at baseline home 02 use. Continue bronchodilators, 02 and titrate prn to maintain sats > 92%, and IV antibiotics. PO Prednisone and taper after discharge. Mucinex 600mg po BID Qualifiers: Respiratory failure complication: hypoxia Qualified Code(s): J96.21 - Acute and chronic respiratory failure with hypoxia (6) Lung cancer Current Visit: Yes Status: Acute Assessment and plan: Recent diagnosis. Pt sees oncology at the cancer center and was to have an appointment with pulmonology tomorrow to discuss treatment options and possible bronchoscopy. Pulmonology has been consulted and has seen the pt. Possible bronch tomorrow, will wait to hear from Dr. Sanders. Plan as above. Qualifiers: Laterality: left Lung location: lower lobe of lung Qualified Code(s): C34.32 - Malignant neoplasm of lower lobe, left bronchus or lung (7) DVT prophylaxis Current Visit: Yes Status: Acute Assessment and plan: Heparin gtt - Time Spent With Patient Total time spent is greater than 50% in coordination of care (as documented) at patient's floor/unit and/or counseling patient: less than 15 minutes - Constitutional Vitals: Temp Pulse Resp BP Pulse Ox 98.1 F 75 16 123/69 95 04/12/18 07:23 04/12/18 07:23 04/12/18 07:23 04/12/18 07:23 04/12/18 07:23 General appearance: Present: cooperative, pleasant, no acute distress, answers questions appropriately - Head Head exam: Present: atraumatic, normal inspection, normocephalic - Eye Eye exam: Present: normal appearance, conjuntiva pink, sclera anicteric - Neck Neck exam general surgery: Present: normal inspection, supple, trachea midline. Absent: lymphadenopathy, tenderness - Respiratory Respiratory exam: Present: CTAB. Absent: accessory muscle use, chest wall tenderness, rales, respiratory distress, rhonchi, wheezes - Cardiovascular Cardiovascular exam: Present: RRR, +S1, +S2. Absent: diastolic murmur, gallop, rubs, systolic murmur - GI/Abdominal GI/Abdominal exam: Present: normal bowel sounds, soft. Absent: distended, hepatomegaly, tenderness - Extremities Exam Extremities exam: Present: normal capillary refill, normal inspection, warm, radial pulses palpable and symmetrical. Absent: calf tenderness, cyanotic, pedal edema, tenderness - Neurological Exam Neurological exam: Present: alert, oriented X3, no focal deficits. Absent: altered, facial droop, speech deficit - Skin Skin exam: Present: dry, intact, normal color, warm. Absent: rash Internal Medicine: Result - Labs CBC & Chem 7: 04/12/18 05:33 04/12/18 05:33 Labs: Short CBC 04/12/18 Range/Units 05:33 WBC 4.2 L D (4.3-11.1) K/mcL Hgb 13.3 (11.5-15.4) g/dL Hct 38.3 (35.3-44.9) % Plt Count 273 (140-400) K/mcL Neutrophils # 3.3 (1.6-8.9) K/mcL BMP 04/12/18 05:33 Sodium 136 Potassium 4.1 Chloride 110 H Carbon Dioxide 22 L BUN 14 Creatinine 0.62 Glucose 150 H Calcium 9.4 Liver Function 04/12/18 Range/Units 05:33 Total Bilirubin 0.4 (0.3-1.0) mg/dL AST 11 L (13-39) Units/L ALT 8 (7-52) Units/L Alkaline Phosphatase 50 (34-104) Units/L Albumin 3.8 (3.5-5.7) g/dL - ABG Interpretation ABG results: PT/INR, D-dimer PT 19.6 Seconds (9.4-12.1) H 04/12/18 05:33 Consult Discharge Plan - Plan Referrals: Marilee Lanier MD [Partnered Physician] - Arelis Reinoso CNP [Primary Care Provider] - 04/27/18 1:45 pm
--- NOTE | 2018-04-12 08:53 | Electrocardiograph Report ---
[address] [place] [address] Test Date: 2018-04-11 Pat Name: Sharon Rodriguez Department: 104 Room: 3B46 Gender: F Clinician Oncology: AM : 1945 Requested By: Tony Lopez Order Number: [id number] Reading MD: Mukesh Graham Measurements Intervals [place] Rate: 93 P: 65 MT: 163 QRS: 0 QRSD: 82 T: 40 QT: 359 QTc: 410 Interpretive Statements SINUS RHYTHM LEFT ATRIAL ENLARGEMENT Electronically Signed On 04-12-2018 8:52:04 EDT by Mukesh Graham
[2018-04-12] MEDS: (Breo Ellipta 200-25 Mcg Inh) IH SCH (09:00)
[2018-04-12] MEDS: Aspirin Enteric Coated 81 MG Tablet PO SCH (09:19)
[2018-04-12] MEDS: predniSONE 20 MG TABLET PO SCH (09:19)
--- NOTE | 2018-04-12 12:05 | Pulmonology Consult Note ---
Date of Encounter: 04/12/18 Time of Encounter: 11:59 Assessment and Plan (1) Acute and chronic respiratory failure Current Visit: Yes Status: Acute This is secondary to COPD exacerbation she is near her baseline 3 L oxygen requirement. We will need to wean FiO2 to keep saturation greater than 88% around 92%. Early mobilization and incentive spirometry and out of bed to chair can also mitigate the effects of atelectasis and VQ mismatch Qualifiers: Respiratory failure complication: hypoxia Qualified Code(s): J96.21 - Acute and chronic respiratory failure with hypoxia (2) Acute exacerbation of chronic obstructive airways disease Current Visit: Yes Status: Acute Agree with oral glucocorticoids. She is currently on prednisone 40 mg which is appropriate I would plan for at least a two-week taper. Agree with the continuation of azithromycin. Continue schedule bronchodilators. Add oral N- acetylcysteine 600 mg twice a day (3) Lung cancer Current Visit: Yes Status: Acute She has a PET left lower lobe nodule status post CT-guided biopsy which was positive for squamous cell carcinoma. She had some mild uptake and the lymph nodes of the left hilum. Recommend bronchoscopy with endobronchial ultrasound for staging of the mediastinum. This can be done tomorrow under general anesthesia keep nothing by mouth at midnight A bronchoscopy is recommended. The procedure , risks, benefits, complications, and expected outcomes have been reviewed. Benefits of diagnosis, as well as risks to include bleeding, infection, pneumothorax which may require surgical intervention, and in a small population. The patient is aware that sometimes test is nondiagnostic. Discussed with patient and agrees to proceed. Qualifiers: Laterality: left Lung location: lower lobe of lung Qualified Code(s): C34.32 - Malignant neoplasm of lower lobe, left bronchus or lung (4) Pulmonary embolism Current Visit: Yes Status: Acute The INR is subtherapeutic at this time. She will need heparin bridge. Heparin infusion should be started now and turned off at approximately midnight for planned procedure tomorrow at 10 AM. She will need INR checked at approximately 9 AM Qualifiers: Pulmonary embolism type: other Chronicity: chronic Acute cor pulmonale presence: without acute cor pulmonale Qualified Code(s): I27.82 - Chronic pulmonary embolism History of Present Illness Consult date: 04/12/18 Requesting physician: Joselin Cervantes Reason for consult: COPD Chief complaint: Difficulty in Breathing History of present illness: Patient is a very pleasant 73-year-old woman well-known to me from outpatient pulmonary clinic who presented with increasing shortness of breath that started early in the morning. She has advanced COPD complicated by chronic respiratory failure and recently diagnosed squamous cell lung cancer. Infection he was scheduled in clinic to discuss options for endobronchial ultrasound as far as staging of lung cancer was concerned. She presented to the emergency department because of shortness of breath that started earlier in the morning. She was concerned because she has a history of pulmonary embolus and had required an increasing amount of oxygen from her baseline. She is also had some noted to increase in wheezing. In the emergency department she was noted to be slightly hypoxemic on her baseline 3 L nasal cannula. CTA of the chest was performed which was was negative for pulmomary embolus and also redemonstrated the left lower lobe pulmonary malignancy that it increased in size slightly throughout there was also small left hilar lymph nodes that had increased in size as well. She does not have a recently diagnosed pulmonary embolus which showed the left lower lobe lesion that underwent CT-guided biopsy. She was a heavy smoker for many years unfortunately she is stop smoking within the last 6 months. She has had multiple COPD exacerbations or loss course the year requiring frequent dosing of oral glucocorticoids and antimicrobials despite maximum treatment for her underlying COPD with bronchitis phenotype. Since admission to the hospital she has been given azithromycin and prednisone with some improvement in her symptoms. Past Med Surg Social Fam HX - Past Medical History Medical history: cancer, COPD, coronary artery disease, fibromyalgia, GERD, hyperlipidemia, myocardial infarction, pulmonary embolus, other Additional medical history: SMOKER Psychiatric history: anxiety, depression - Past Surgical History Surgical History: angioplasty/stent, appendectomy, hysterectomy Additional surgical history: BREAST BIOPSY. 3 cardiac stents - Social History Smoking Status: Current every day smoker Smokeless Tobacco Status: No Alcohol use: none Drug use: none - Family History Mother Hx Family Cardiac Disorders: Yes (NE) Hx Family Respiratory Disorders: Yes (lung cancer) Hx Family Cancer: Yes (Lung ca) Father Hx Family Cancer: Yes (lung) Medications and Allergies Aspirin Enteric Coated [Aspirin EC] 81 mg PO DAILY #0 07/20/15 [History] Tramadol HCl [Ultram] 50 mg PO Q4H PRN #0 07/20/15 [History] Albuterol Sulfate [Albuterol Inhaler] 2 puff IH Q4HR PRN 11/08/16 [History] Fluticasone/Vilanterol [Breo Ellipta 200-25 Mcg INH] 1 each IH DAILY 11/27/17 [ History] Ipratropium/Albuterol Neb [Duoneb] 3 ml IH Q4HR 11/27/17 [History] LORazepam [Ativan] 1 mg PO BID PRN 11/27/17 [History] Oxygen 2 l NS HS 11/27/17 [History] Metoprolol [Lopressor] 12.5 mg PO BID 01/01/18 [History] Warfarin [Coumadin] 2 mg PO MOFR 01/01/18 [History] Ondansetron HCl [Zofran] 4 mg PO DAILY PRN 04/12/18 [History] Oxybutynin Chloride [Ditropan Xl] 5 mg PO DAILY 04/12/18 [History] Warfarin [Coumadin] 3 mg PO SUTUWETHSA 04/12/18 [History] 3 Allergy/AdvReac Type Severity Reaction Status Date / Time Hydromorphone [From Dilaudid] Allergy Rash Verified 04/11/18 17:22 nitrofurantoin Allergy Anaphylaxis Verified 04/11/18 17:22 [From Macrodantin] Erythromycin Base AdvReac Gastrointestinal Verified 04/11/18 17:22 Upset Penicillins AdvReac Gastrointestinal Verified 04/11/18 17:22 Upset All Systems: The remainder of the systems were reviewed and are negative Physical Examination Vital Signs: Vital Signs, Last 4 Hours Temp Pulse Resp BP Pulse Ox 04/12/18 11:38 98.6 F 77 16 127/71 91 General appearance: no acute distress Eyes: nonicteric ENT: oropharynx moist Neck: supple Effort: normal Auscultation: bilateral: wheezes Cardiovascular: regular rate and rhythm Gastrointestinal: normoactive bowel sounds, soft, non-tender Integumentary: normal Extremities: no cyanosis, no edema, no clubbing, pink and warm Musculoskeletal: no deformities normal mental status, non-focal exam mood appropriate Results - Laboratory Findings CBC and BMP: 04/12/18 05:33 04/12/18 05:33 PT/INR, D-dimer PT 19.6 Seconds (9.4-12.1) H 04/12/18 05:33 Abnormal lab findings: Abnormal lab results WBC 4.2 K/mcL (4.3-11.1) L D 04/12/18 05:33 MPV 9.2 fL (9.4-12.4) L 04/12/18 05:33 PT 19.6 Seconds (9.4-12.1) H 04/12/18 05:33 APTT 37.2 Seconds (26.0-36.0) H 04/12/18 05:33 Chloride 110 mEq/L (98-107) H 04/12/18 05:33 Carbon Dioxide 22 mEq/L (23-29) L 04/12/18 05:33 Glucose 150 mg/dL (70-105) H 04/12/18 05:33 AST 11 Units/L (13-39) L 04/12/18 05:33 Cholesterol 201 mg/dL (< 200) H 04/12/18 05:33 LDL Cholesterol, Calc 135 mg/dL (0-99) H 04/12/18 05:33 - Diagnostic Findings CT scan - chest: report reviewed, image reviewed - Clinical Findings Intake & Output: Intake & Output 04/11/18 04/12/18 04/12/18 23:59 07:59 15:59 Intake Total 240 / 240 Balance 240 / 240 Weight 54 kg Consult Discharge Plan - Plan Referrals: Marilee Lanier MD [Partnered Physician] - Arelis Reinoso CNP [Primary Care Provider] - 04/27/18 1:45 pm
[2018-04-12] MEDS ORDERED: Heparin 25,000 UNIT/500 ML D5W 25,000 UNIT/500 ML BAG IVC SCH (12:30)
[2018-04-12] MEDS ORDERED: *HR* Heparin 5,000 UNIT/ML VIAL IVP PRN ×2 (12:30)
[2018-04-12] MEDS ORDERED: *HR* Heparin 5,000 UNIT/ML VIAL IVP ONE (12:30)
[2018-04-12 14:05] LABS: INR 1.8; Prothrombin Time 20.5 Seconds (9.4-12.1)
[2018-04-12 14:07] LABS: Activated Partial Thrombo Time 35.3 Seconds (26.0-36.0)
[2018-04-12 14:09] LABS: Hematocrit 39.6 % (35.3-44.9); Hemoglobin 13.8 g/dL (11.5-15.4); Mean Corpuscular HGB Conc 34.8 g/dL (31.6-35.5); Mean Corpuscular Hemoglobin 32.5 pg (28.0-33.3); Mean Corpuscular Volume 93.4 fL (83.0-100.0); Mean Platelet Volume 9.7 fL (9.4-12.4); Platelet Count 268 K/mcL (140-400); Red Blood Count 4.24 M/mcL (3.82-4.97); Red Cell Distribution Width 12.8 % (11.5-14.5)
[2018-04-12] MEDS ORDERED: *HR* Heparin 5,000 UNIT/ML VIAL SQ SCH (18:00)
[2018-04-12] MEDS ORDERED: Warfarin perPT PO PRN (18:00)
[2018-04-12] MEDS ORDERED: *HR* Warfarin 3 MG TABLET PO ONE (18:00)
[2018-04-12] MEDS ORDERED: *HR* Warfarin 3 MG TABLET PO SCH (18:00)
[2018-04-12 20:28] LABS: INR 1.9; Prothrombin Time 20.9 Seconds (9.4-12.1)
--- NOTE | 2018-04-12 20:37 | Anesthesia Evaluation PreOp ---
Date of Encounter: 04/12/18 Time of Encounter: 20:38 - Past History Planned Operation: EBUS Cardiac History: Hyperlipidemia, Cardiac Stent (3 stents placed 2008), Other ( CAD) Pulmonary History: Former smoker ("Quit" 1 week ago), Smoker (<1ppd x 50yrs), COPD (admitted 04/11/2018 with COPD exacerbation - steroid course started this admission), Other (Hx lung Ca, Hx of PE) [employer] History: Other (Fibromyalgia, Anxiety/Depression) Anesthesia History: No Prior Anesthetic Complications, Past Anesthesia (Appy, Hyster, C-sections x 3, Breast Bx) Alcohol Use: none Drug use: none Medications and Allergies Aspirin Enteric Coated [Aspirin EC] 81 mg PO DAILY #0 07/20/15 [History] Tramadol HCl [Ultram] 50 mg PO Q4H PRN #0 07/20/15 [History] Albuterol Sulfate [Albuterol Inhaler] 2 puff IH Q4HR PRN 08/16/16 [History] Fluticasone/Vilanterol [Breo Ellipta 200-25 Mcg INH] 1 each IH DAILY 11/27/17 [ History] Ipratropium/Albuterol Neb [Duoneb] 3 ml IH Q4HR 11/27/17 [History] LORazepam [Ativan] 1 mg PO BID PRN 11/27/17 [History] Oxygen 2 l NS HS 11/27/17 [History] Metoprolol [Lopressor] 12.5 mg PO BID 01/01/18 [History] Warfarin [Coumadin] 2 mg PO MOFR 01/01/18 [History] Ondansetron HCl [Zofran] 4 mg PO DAILY PRN 04/12/18 [History] Oxybutynin Chloride [Ditropan Xl] 5 mg PO DAILY 04/12/18 [History] Warfarin [Coumadin] 3 mg PO SUTUWETHSA 04/12/18 [History] 3 Allergy/AdvReac Type Severity Reaction Status Date / Time Hydromorphone [From Dilaudid] Allergy Rash Verified 04/11/18 17:22 nitrofurantoin Allergy Anaphylaxis Verified 04/11/18 17:22 [From Macrodantin] Erythromycin Base AdvReac Gastrointestinal Verified 04/11/18 17:22 Upset Penicillins AdvReac Gastrointestinal Verified 04/11/18 17:22 Upset - Meds/Allergy Pre-op Review Medications Reviewed: Yes Allergies Reviewed: Yes Beta Blockers on Current Med List: Yes (Metoprolol) If Beta Blockers taken, Date/Time (Last Dose taken): 04/12/2018 @ 2026 Anesthesia Results - Labs 04/12/18 13:23 04/12/18 05:33 Impressions Chest CTA 04/11/18 17:37 IMPRESSION: 1. Negative for pulmonary embolic disease. 2. The known left lower lobe pulmonary malignancy has increased in size since the prior exam, currently measuring 2.4 x 1.4 cm compared with 2.1 x 1.3 cm. 3. Small left hilar lymph nodes have slightly increased in the interim. D/ / 04/11/2018 19:00:14 Sharad Terry MD / sergo Interpreting Provider: Sharad Terry MD - Imaging EKG: image reviewed Anesthesia Exam Vital Signs Temp Pulse Resp BP Pulse Ox 04/12/18 19:50 18 91 04/12/18 19:15 98.6 F 87 16 115/62 92 04/12/18 15:46 16 88 04/12/18 15:37 98.3 F 78 17 108/63 91 04/12/18 11:38 98.6 F 77 16 127/71 91 04/12/18 11:21 16 97 04/12/18 07:46 16 90 04/12/18 07:23 98.1 F 75 16 123/69 95 04/12/18 03:28 98.5 F 87 14 127/69 92 04/11/18 22:56 99.2 F 96 16 136/70 91 Intake and Output 04/12/18 04/12/18 04/12/18 07:59 15:59 23:59 Intake Total 240 / 240 Output Total 150 / 150 Balance 240 / 240 -150 / -150 Intake: Oral 240 / 240 Output: Urine 150 / 150 Other: Meal Breakfast Percent of Meal Consumed 75% Weight 54 kg Patient Weight 04/12/18 23:59 Weight 54 kg - HEENT Pupil (Motor): Pupils equal, EOMI Mallampati: II Denture Type: Upper: Complete Oral Opening: Greater than 3 - [employer] LOC: Oriented [employer] Motor: Normal RUE, Normal LUE, Normal RLE, Normal LLE, Normal Face [employer] Sensory: Normal: RUE, LUE, RLE, LLE, Face - Cardiac Rhythm: Regular Murmur: None - Pulmonary Breath Sounds: bilateral Rales (audible rhonchi without stethoscope. + Productive cough), bilateral Rhonchi Respiratory Effort: Symmetrical Anesthesia Assess/Plan ASA Score: 3 Modified Foreign Scale for Level of Consciousness: Cooperative, oriented, and tranquil Anesthetic Plan: General Monitoring Plan: Standard Monitors Recovery Plan: PACU Anes Supervising Prov Stmt: Pt seen/evaluated, R&B Discussed, questions answered and consent obtained. Sivakumar Arevalo MD
[2018-04-13] MEDS: Ipratropium/Albuterol Neb 3 ML IH SCH ×5 (04:04→19:48)
[2018-04-13] MEDS: Azithromycin 500 MG in D5% in Water 250 ML IVPB SCH (05:21)
[2018-04-13 05:39] LABS: Basophils % 0.2 %; Hematocrit 38.2 % (35.3-44.9); Hemoglobin 12.8 g/dL (11.5-15.4); Immature Granulocytes % 0.3 % (0-4); Lymphocytes # 2.1 K/mcL (0.6-4.6); Lymphocytes % 23.2 %; Mean Corpuscular HGB Conc 33.5 g/dL (31.6-35.5); Mean Corpuscular Hemoglobin 31.8 pg (28.0-33.3); Mean Corpuscular Volume 94.8 fL (83.0-100.0); Mean Platelet Volume 9.6 fL (9.4-12.4); Monocytes # 0.5 K/mcL (0.0-1.3); Monocytes % 5.1 %; Neutrophils # 6.5 K/mcL (1.6-8.9); Platelet Count 269 K/mcL (140-400); Red Blood Count 4.03 M/mcL (3.82-4.97); Segmented Neutrophils % 71.2 %
[2018-04-13 06:55] LABS: BUN/Creatinine Ratio 24 (6-26); Blood Urea Nitrogen 18 mg/dL (8-23); Calcium 9.2 mg/dL (8.6-10.3); Carbon Dioxide 24 mEq/L (23-29); Chloride 109 mEq/L (98-107); Glucose 165 mg/dL (70-105); Osmolality,Calculated 292 (280-300); Potassium 3.8 mEq/L (3.5-5.1); Sodium 138 mEq/L (136-145); eGFR For African Americans > 60 (> 60); eGFR For Non-African Americans > 60 (> 60)
[2018-04-13 08:52] LABS: INR 1.7; Prothrombin Time 19.3 Seconds (9.4-12.1)
[2018-04-13] MEDS: Ipratropium/Albuterol Neb 3 ML IH PRN (09:41)
[2018-04-13] MEDS ORDERED: *HR* FentaNYL (PF) 100 MCG/2 ML VIAL ONE (09:53)
[2018-04-13] MEDS ORDERED: *HR* Propofol 200 MG/20 ML VIAL IVP ONE (09:54)
[2018-04-13] MEDS ORDERED: Lidocaine -MPF 2% 2 ML VIAL ONE (09:54)
[2018-04-13] MEDS ORDERED: *HR* Succinylcholine 200 MG/10 ML VIAL IVP ONE (09:55)
[2018-04-13] MEDS ORDERED: Lidocaine -MPF 4% 5 ML AMPUL ONE (09:57)
[2018-04-13] MEDS ORDERED: Ondansetron 4 MG/2 ML VIAL ONE (10:15)
[2018-04-13] MEDS ORDERED: Dexamethasone 4 MG/ML VIAL ONE (10:15)
[2018-04-13] MEDS ORDERED: Albuterol 2.5 MG/3 ML NEBULIZER ONE (11:37)
[2018-04-13] MEDS ORDERED: Albuterol 2.5 MG/3 ML NEBULIZER IH ONE (11:38)
--- NOTE | 2018-04-13 12:19 | Anesthesia Evaluation Post Op ---
Date of Encounter: 04/13/18 Time of Encounter: 12:18 - Vital Signs Vital Signs: Vital Signs/O2 Sat, Most Current Temp Pulse Resp BP Pulse Ox 98.3 F 85 16 113/63 92 04/13/18 11:55 04/13/18 12:15 04/13/18 12:15 04/13/18 12:15 04/13/18 12:15 - Lungs Lungs: Clear Ascult./Percussion - Airway Airway: Non-obstructed - Cardiovascular Regular Rate - Mental Status Mental Status: Alert & Oriented, Answers Appropriately - Pain Pain Scale: 2 Pain Scale used: Numeric (1 - 10) - Nausea Vomiting Nausea Vomiting: Not Present - Hydration Hydration: NPO, Unable to void - Discharge PostOp Status: Transfer Patient to floor (to floor, VVS no anesthetic complications)
[2018-04-13] MEDS: *HR* Acetylcysteine 20% 600 MG/3 ML ORAL SYRINGE PO SCH ×2 (13:10→21:32)
[2018-04-13] MEDS: predniSONE 20 MG TABLET PO SCH (13:13)
[2018-04-13] MEDS: (Breo Ellipta 200-25 Mcg Inh) IH SCH (13:14)
[2018-04-13] MEDS: Aspirin Enteric Coated 81 MG Tablet PO SCH (13:14)
[2018-04-13] MEDS: traMADol 50 MG TABLET PO PRN ×2 (13:19→20:36)
[2018-04-13 17:03] LABS: Appearance of Body Fluid Cloudy (Clear); Volume of Body Fluid 15 mL
[2018-04-13] MEDS ORDERED: *HR* Warfarin 2 MG TABLET PO SCH (18:00)
--- NOTE | 2018-04-13 18:08 | Discharge Summary ---
Date of Encounter: 04/13/18 Time of Encounter: 09:35 - Discharge Diagnosis (1) Acute exacerbation of chronic obstructive airways disease Priority: Primary Status: Resolved Assessment and Plan: Acute exacerbation of COPD. Pt reports increased SOB and increased 02 demand over baseline. Pt has home 02 and normally wears at night only. Increase 02 to continuous at home after discharge Continue Prednisone taper at home Po omnicef at home Continue Mucinex and bronchodilators, pt states that she does not need refills. Follow with pulmonology and oncology, PCP as scheduled. (2) Pulmonary embolism Priority: Secondary Status: Acute Assessment and Plan: Pt with PE of posterior segmental branch of the RLL pulmonary artery diagnoese on 11/27/17. Pt has been taking Coumadin. On arrival INR is subtherapeutic. Chest CTA 04/11/18 negative for PE. Pt has been started on Heparin gtt for subtherapeutic INR. Bridge to Lovenox. Qualifiers: Pulmonary embolism type: other Chronicity: chronic Acute cor pulmonale presence: without acute cor pulmonale Qualified Code(s): I27.82 - Chronic pulmonary embolism (3) Pulmonary nodule Priority: Secondary Status: Suspected Assessment and Plan: Chronic. Follow with pulmonology. (4) CAD (coronary artery disease) Priority: Secondary Status: Chronic Assessment and Plan: Pt denies chest pain. Continue aspirin and beta jennifer. Qualifiers: Coronary Disease-Associated Artery/Lesion type: [place] artery [place] vs. transplanted heart: [place] heart Associated angina: without angina Qualified Code(s): I25.10 - Atherosclerotic heart disease of [place] coronary artery without angina pectoris (5) Acute and chronic respiratory failure Priority: Secondary Status: Acute Assessment and Plan: Pt requiring supplemental 02 to maintain sats. Documented hypoxia in the ER at baseline home 02 use. Continue bronchodilators, 02 and titrate prn to maintain sats > 92%, and po antibiotics. PO Prednisone and taper after discharge. Mucinex 600mg po BID 02 continuous at home. Qualifiers: Respiratory failure complication: hypoxia Qualified Code(s): J96.21 - Acute and chronic respiratory failure with hypoxia (6) Lung cancer Priority: Secondary Status: Acute Assessment and Plan: Recent diagnosis. Pt sees oncology at the cancer center and will follow up after discharge. Pulmonology has been consulted and has seen the pt. Bronchoscopy today. Patient had mucus plugging left upper lobe, dynamic collapse was found throughout the tracheobronchial tree, bronchitic changes were found. Needle aspiration was performed. Preliminary cytology of the lesion in the paratracheal area, and right hilum and left hilum was suggestive of benign-appearing lymphoid tissue. BAL was performed. Final results are pending. Plan as above. Qualifiers: Laterality: left Lung location: lower lobe of lung Qualified Code(s): C34.32 - Malignant neoplasm of lower lobe, left bronchus or lung (7) DVT prophylaxis Priority: Secondary Status: Acute Assessment and Plan: Heparin gtt, bridge to Lovenox. 1mg/kg BID. 60mg SQ BID Hospital course: Ms. Rodriguez is a 73 year old female with past medical history of urinary artery disease, lung cancer, respiratory failure, tobacco abuse, coronary artery disease. Patient admitted for exacerbation of COPD, recent diagnosis of lung cancer. Bronchoscopy completed today, results are pending. Patient will follow with oncology and primary care, pulmonology after discharge. Patient will be sent home with prescription for Lovenox, she was bridged from heparin here for PE. Patient's labs and vitals are stable and within normal limits. Patient will be discharged in stable condition. - Time Spent with Patient Total time spent providing and/or coordinating discharge services: - Discharge Medications Prescriptions: Enoxaparin [Lovenox *PHARMACY WT BASED*] 60 mg SQ Q12HR #28 mg GuaiFENesin ER [Mucinex] 600 mg PO BID PRN #60 tbbp.12hr PRN Reason: Cough predniSONE [PredniSONE] 10 mg PO DAILY #27 tablet Home Medications: Aspirin Enteric Coated [Aspirin EC] 81 mg PO DAILY #0 07/20/15 [History] Tramadol HCl [Ultram] 50 mg PO Q4H PRN #0 07/20/15 [History] Albuterol Sulfate [Albuterol Inhaler] 2 puff IH Q4HR PRN 08/16/16 [History] Fluticasone/Vilanterol [Breo Ellipta 200-25 Mcg INH] 1 each IH DAILY 11/27/17 [ History] Ipratropium/Albuterol Neb [Duoneb] 3 ml IH Q4HR 11/27/17 [History] LORazepam [Ativan] 1 mg PO BID PRN 11/27/17 [History] Oxygen 2 l NS HS 11/27/17 [History] Metoprolol [Lopressor] 12.5 mg PO BID 01/01/18 [History] Ondansetron HCl [Zofran] 4 mg PO DAILY PRN 04/12/18 [History] Oxybutynin Chloride [Ditropan Xl] 5 mg PO DAILY 04/12/18 [History] Enoxaparin [Lovenox *PHARMACY WT BASED*] 60 mg SQ Q12HR #28 mg 04/13/18 [Rx] GuaiFENesin ER [Mucinex] 600 mg PO BID PRN #60 tbbp.12hr 04/13/18 [Rx] predniSONE [PredniSONE] 10 mg PO DAILY #27 tablet 04/13/18 [Rx] Allergies/Adverse Reactions: 3 Allergy/AdvReac Type Severity Reaction Status Date / Time Hydromorphone [From Dilaudid] Allergy Rash Verified 04/11/18 17:22 nitrofurantoin Allergy Anaphylaxis Verified 04/11/18 17:22 [From Macrodantin] Erythromycin Base AdvReac Gastrointestinal Verified 04/11/18 17:22 Upset Penicillins AdvReac Gastrointestinal Verified 04/11/18 17:22 Upset Date of admission: 04/13/18 16:17 Primary care physician: Arelis Reinoso, [facility] Discharging clinician: Joselin Cervantes Anticipated date of discharge: 04/13/18 - Constitutional Vitals: Temp Pulse Resp BP Pulse Ox 99.1 F 84 16 108/63 92 04/13/18 16:28 04/13/18 16:28 04/13/18 16:28 04/13/18 16:28 04/13/18 16:28 General appearance: Present: cooperative, pleasant, no acute distress, answers questions appropriately - Head Head exam: Present: atraumatic, normal inspection, normocephalic - Eye Eye exam: Present: normal appearance, conjuntiva pink, sclera anicteric - Neck Neck exam general surgery: Present: supple, trachea midline. Absent: lymphadenopathy, tenderness - Respiratory Respiratory exam: Present: decreased breath sounds, CTAB, respiratory distress, rhonchi, wheezes. Absent: accessory muscle use, chest wall tenderness, rales - Cardiovascular Cardiovascular exam: Present: RRR, +S1, +S2. Absent: diastolic murmur, gallop, rubs, systolic murmur - GI/Abdominal GI/Abdominal exam: Present: normal bowel sounds, soft. Absent: distended, hepatomegaly, tenderness - Extremities Exam Extremities exam: Present: normal inspection, warm, radial pulses palpable and symmetrical. Absent: calf tenderness, cyanotic, pedal edema - Neurological Exam Neurological exam: Present: alert, oriented X3, no focal deficits. Absent: facial droop, speech deficit - Skin Skin exam: Present: dry, intact, normal color, warm. Absent: rash - Patient Status Disposition: Home, Self-Care Condition: Good Functional capacity at discharge: independent ambulation Overall status at discharge: patient is progressing back to baseline - Discharge Instructions Follow Up With: Marilee Lanier MD [Partnered Physician] - Arelis Reinoso CNP [Primary Care Provider] - 04/27/18 1:45 pm Additional Instructions: Please follow up with pulmonology, oncology, and PCP as scheduled. Return to your normal diet and activities as tolerated. REturn to your normal diet as tolerated. Make sure to not miss doses of your Lovenox. Use your oxygen continuously until you are some better. Return to the ER as needed if your symptoms return or worsen or if you have other concerns. - Diet and Activity Activity: increase activity as tolerated Diet: advance to your usual diet
[2018-04-13] MEDS: *HR* Enoxaparin 60 MG/0.6 ML SYRINGE SQ SCH (18:59)
[2018-04-14] MEDS: Ipratropium/Albuterol Neb 3 ML IH SCH ×4 (00:28→10:55)
[2018-04-14] MEDS: Azithromycin 500 MG in D5% in Water 250 ML IVPB SCH (05:46)
[2018-04-14] MEDS: *HR* Enoxaparin 60 MG/0.6 ML SYRINGE SQ SCH (05:46)
[2018-04-14 06:05] LABS: Basophils % 0.1 %; Hematocrit 33.4 % (35.3-44.9); Immature Granulocytes % 0.3 % (0-4); Lymphocytes # 1.1 K/mcL (0.6-4.6); Lymphocytes % 15.4 %; Mean Corpuscular HGB Conc 32.9 g/dL (31.6-35.5); Mean Corpuscular Hemoglobin 31.4 pg (28.0-33.3); Mean Corpuscular Volume 95.4 fL (83.0-100.0); Mean Platelet Volume 9.6 fL (9.4-12.4); Monocytes # 0.4 K/mcL (0.0-1.3); Neutrophils # 5.5 K/mcL (1.6-8.9); Platelet Count 248 K/mcL (140-400); Segmented Neutrophils % 78.2 %
[2018-04-14 06:22] LABS: BUN/Creatinine Ratio 27 (6-26); Blood Urea Nitrogen 23 mg/dL (8-23); Calcium 8.9 mg/dL (8.6-10.3); Carbon Dioxide 24 mEq/L (23-29); Chloride 109 mEq/L (98-107); Glucose 121 mg/dL (70-105); Osmolality,Calculated 291 (280-300); Potassium 4.7 mEq/L (3.5-5.1); Sodium 138 mEq/L (136-145); eGFR For African Americans > 60 (> 60); eGFR For Non-African Americans > 60 (> 60)
--- NOTE | 2018-04-14 08:23 | Pulmonology Progress Note ---
Date of Encounter: 04/14/18 Time of Encounter: 08:21 Assessment and Plan (1) Acute and chronic respiratory failure Current Visit: Yes Status: Acute She is at baseline oxygen requirement of 3 L continue long-term oxygen therapy to keep saturation greater than 88% around 92% at all times Qualifiers: Respiratory failure complication: hypoxia Qualified Code(s): J96.21 - Acute and chronic respiratory failure with hypoxia (2) Acute exacerbation of chronic obstructive airways disease Current Visit: Yes Status: Acute Recommend steroid taper starting with 40 mg prednisone over the next 2 weeks Azithromycin to complete 5 day course Return to home COPD/Bronchodilator regimen Outpatient pulmonary follow-up (3) Lung cancer Current Visit: Yes Status: Acute Status post EBUS with FNA for staging in the mediastinum. We will follow-up on path report follow radiation oncology and oncology for further evaluation of this Qualifiers: Laterality: left Lung location: lower lobe of lung Qualified Code(s): C34.32 - Malignant neoplasm of lower lobe, left bronchus or lung (4) Pulmonary embolism Current Visit: Yes Status: Acute We will need Lovenox bridge while INR subtherapeutic at discharge will defer to primary medicine team for management of this Qualifiers: Pulmonary embolism type: other Chronicity: chronic Acute cor pulmonale presence: without acute cor pulmonale Qualified Code(s): I27.82 - Chronic pulmonary embolism Subjective Principal diagnosis: AECOPD Interval history: Sharon states that she is breathing a little bit easier today. She does complain of some wheezing but she is able to take a deep breath now where she was unable to prior to admission to the hospital. Status post bronchoscopy without untoward effects she says she is swallowing normally denies hemoptysis or difficulty speaking Objective PUL Vital signs: Last Vital Signs Temp 98.7 F 04/14/18 02:41 Pulse 71 04/14/18 02:41 Resp 18 04/14/18 07:29 BP 104/60 04/14/18 02:41 Pulse Ox 95 04/14/18 07:29 General appearance: no acute distress Eyes: nonicteric ENT: oropharynx moist Neck: supple, no lymphadenopathy Effort: normal Auscultation: bilateral: wheezes Cardiovascular: regular rate and rhythm Gastrointestinal: normoactive bowel sounds Integumentary: normal Extremities: no cyanosis, no edema, no clubbing normal mental status, non-focal exam mood appropriate Results - Laboratory Findings CBC and BMP: 04/14/18 05:28 04/14/18 05:28 PT/INR, D-dimer PT 19.3 Seconds (9.4-12.1) H 04/13/18 08:30 Abnormal lab findings: Abnormal lab results RBC 3.50 M/mcL (3.82-4.97) L 04/14/18 05:28 Hgb 11.0 g/dL (11.5-15.4) L D 04/14/18 05:28 Hct 33.4 % (35.3-44.9) L 04/14/18 05:28 PT 19.3 Seconds (9.4-12.1) H 04/13/18 08:30 APTT 59.9 Seconds (26.0-36.0) H D 04/12/18 20:08 Chloride 109 mEq/L (98-107) H 04/14/18 05:28 BUN/Creatinine Ratio 27 (6-26) H 04/14/18 05:28 Glucose 121 mg/dL (70-105) H 04/14/18 05:28 AST 11 Units/L (13-39) L 04/12/18 05:33 Cholesterol 201 mg/dL (< 200) H 04/12/18 05:33 LDL Cholesterol, Calc 135 mg/dL (0-99) H 04/12/18 05:33 Fluid Appearance Cloudy (Clear) A 04/13/18 11:34 - Clinical Findings Intake & Output: Intake & Output 04/13/18 04/14/18 04/14/18 23:59 07:59 15:59 Weight 58.4 kg Consult Discharge Plan - Plan Additional Instructions: Please follow up with pulmonology, oncology, and PCP as scheduled. Return to your normal diet and activities as tolerated. REturn to your normal diet as tolerated. Make sure to not miss doses of your Lovenox. Use your oxygen continuously until you are some better. Return to the ER as needed if your symptoms return or worsen or if you have other concerns. Referrals: Marilee Lanier MD [Partnered Physician] - Arelis Reinoso CNP [Primary Care Provider] - 04/27/18 1:45 pm Prescriptions: Enoxaparin [Lovenox *PHARMACY WT BASED*] 60 mg SQ Q12HR #28 mg GuaiFENesin ER [Mucinex] 600 mg PO BID PRN #60 tbbp.12hr PRN Reason: Cough predniSONE [PredniSONE] 10 mg PO DAILY #27 tablet
[2018-04-14 09:44] LABS: INR 1.5; Prothrombin Time 16.5 Seconds (9.4-12.1)
[2018-04-14] MEDS: Aspirin Enteric Coated 81 MG Tablet PO SCH (09:53)
[2018-04-14] MEDS: predniSONE 20 MG TABLET PO SCH (09:53)
[2018-04-14] MEDS: (Breo Ellipta 200-25 Mcg Inh) IH SCH (10:49)
[2018-04-14 11:44] VITALS: BP 113/65
[2018-04-14] MEDS: *HR* Acetylcysteine 20% 600 MG/3 ML ORAL SYRINGE PO SCH (11:59)
--- NOTE | 2018-04-14 14:24 | Internal Med Progress Note ---
Date of Encounter: 04/14/18 Time of Encounter: 08:45 - Assessment and plan (1) Acute exacerbation of chronic obstructive airways disease Current Visit: Yes Status: Acute Assessment and plan: Acute exacerbation of COPD. Pt has returned to her baseline 02 use. Continue Prednisone taper at home Po Zithromax at home, 250mg x 4 doses. Continue Mucinex and bronchodilators, pt states that she does not need refills. Follow with pulmonology and oncology, PCP as scheduled. (2) Pulmonary embolism Current Visit: Yes Status: Acute Assessment and plan: Pt with PE of posterior segmental branch of the RLL pulmonary artery diagnoese on 11/27/17. Chest CTA 04/11/18 negative for PE. Heparin gtt discontinued for bronchoscopy, pt has been bridged to Lovenox 1mg/ kg SQ BID. Qualifiers: Pulmonary embolism type: other Chronicity: chronic Acute cor pulmonale presence: without acute cor pulmonale Qualified Code(s): I27.82 - Chronic pulmonary embolism (3) Pulmonary nodule Current Visit: Yes Status: Suspected Assessment and plan: Chronic. Follow with pulmonology. (4) CAD (coronary artery disease) Current Visit: Yes Status: Chronic Assessment and plan: Pt denies chest pain. Continue aspirin and beta jennifer. Qualifiers: Coronary Disease-Associated Artery/Lesion type: [place] artery [place] vs. transplanted heart: [place] heart Associated angina: without angina Qualified Code(s): I25.10 - Atherosclerotic heart disease of [place] coronary artery without angina pectoris (5) Acute and chronic respiratory failure Current Visit: Yes Status: Acute Assessment and plan: Pt has returned to baseline 02 use. Documented hypoxia in the ER at baseline home 02 use. Continue bronchodilators, 02 and titrate prn to maintain sats > 92%, and po antibiotics. PO Prednisone and taper after discharge. Mucinex 600mg po BID 02 continuous at home. Qualifiers: Respiratory failure complication: hypoxia Qualified Code(s): J96.21 - Acute and chronic respiratory failure with hypoxia (6) Lung cancer Current Visit: Yes Status: Acute Assessment and plan: Recent diagnosis. Pt sees oncology at the cancer center and will follow up after discharge. Bronchoscopy 04/13/18. Patient had mucus plugging left upper lobe, dynamic collapse was found throughout the tracheobronchial tree, bronchitic changes were found. Needle aspiration was performed. Preliminary cytology of the lesion in the paratracheal area, and right hilum and left hilum was suggestive of benign-appearing lymphoid tissue. BAL was performed. Final results are pending. Results with pulmonology. Qualifiers: Laterality: left Lung location: lower lobe of lung Qualified Code(s): C34.32 - Malignant neoplasm of lower lobe, left bronchus or lung (7) DVT prophylaxis Current Visit: Yes Status: Acute Assessment and plan: Heparin gtt, bridge to Lovenox. 1mg/kg BID. 60mg SQ BID - Time Spent With Patient Total time spent is greater than 50% in coordination of care (as documented) at patient's floor/unit and/or counseling patient: less than 15 minutes - Subjective Interval history: Pt was seen and assessed at bedside at 0830. She states that she is feeling better today. She denies fever, chills, nausea, vomiting, diarrhea, chest pain. She states that she is breathing more easily now and feels that she is ready to go home. Pt states that she has taken Lovenox in the past and is familiar with administration. - Constitutional Vitals: Temp Pulse Resp BP Pulse Ox 99.5 F 84 16 113/65 92 04/14/18 11:43 04/14/18 11:43 04/14/18 11:43 04/14/18 11:43 04/14/18 11:43 General appearance: Present: cooperative, A&O X 3, pleasant, no acute distress, answers questions appropriately - Head Head exam: Present: atraumatic, normal inspection, normocephalic - Eye Eye exam: Present: normal appearance, conjuntiva pink, sclera anicteric - Neck Neck exam general surgery: Present: supple, trachea midline. Absent: lymphadenopathy, tenderness - Respiratory Respiratory exam: Present: CTAB, wheezes. Absent: accessory muscle use, chest wall tenderness, rales, respiratory distress, rhonchi - Cardiovascular Cardiovascular exam: Present: RRR, +S1, +S2. Absent: bradycardia, diastolic murmur, gallop, rubs, systolic murmur, tachycardia - GI/Abdominal GI/Abdominal exam: Present: normal bowel sounds, soft. Absent: distended, hepatomegaly, tenderness - Extremities Exam Extremities exam: Present: normal capillary refill, normal inspection, warm, radial pulses palpable and symmetrical. Absent: calf tenderness, cyanotic, pedal edema, tenderness - Neurological Exam Neurological exam: Present: alert, oriented X3, no focal deficits. Absent: facial droop, speech deficit - Skin Skin exam: Present: dry, intact, normal color, warm. Absent: rash Internal Medicine: Result - Labs CBC & Chem 7: 04/14/18 05:28 04/14/18 05:28 Labs: Short CBC 04/14/18 Range/Units 05:28 WBC 7.0 (4.3-11.1) K/mcL Hgb 11.0 L D (11.5-15.4) g/dL Hct 33.4 L (35.3-44.9) % Plt Count 248 (140-400) K/mcL Neutrophils # 5.5 (1.6-8.9) K/mcL BMP 04/14/18 05:28 Sodium 138 Potassium 4.7 Chloride 109 H Carbon Dioxide 24 BUN 23 Creatinine 0.85 Glucose 121 H Calcium 8.9 - ABG Interpretation ABG results: PT/INR, D-dimer PT 16.5 Seconds (9.4-12.1) H 04/14/18 09:07 Consult Discharge Plan - Plan Instructions: Prednisone (By mouth), Guaifenesin (By mouth), Azithromycin (By mouth), Enoxaparin (Injection), Chronic Obstructive Pulmonary Disease (DC) Additional Instructions: Please follow up with pulmonology, oncology, and PCP as scheduled. Return to your normal diet and activities as tolerated. REturn to your normal diet as tolerated. Make sure to not miss doses of your Lovenox. Use your oxygen continuously until you are some better. Return to the ER as needed if your symptoms return or worsen or if you have other concerns. Referrals: Marilee Lanier MD [Partnered Physician] - (Office mery be caling you for appointment. Appointment has been web requested.) Arelis Reinoso CNP [Primary Care Provider] - 04/27/18 1:45 pm Prescriptions: Enoxaparin [Lovenox *PHARMACY WT BASED*] 60 mg SQ Q12HR #28 mg Azithromycin 250 mg PO DAILY #4 tablet GuaiFENesin ER [Mucinex] 600 mg PO BID PRN #60 tbbp.12hr PRN Reason: Cough predniSONE [PredniSONE] 10 mg PO DAILY #27 tablet
== END 2018-04-14 14:20 | disposition home or self-care (01) | DRG 166 ==
LOC: EMEROO 17:15 → 3BNU 17:15
PROVIDERS: ADMIT Internal Medicine Nephrology; ATTEND Internal Medicine Nephrology

== ENCOUNTER 2019-03-07 23:31 | Observation (INO) ==
[2019-03-07] MEDS ORDERED: Ipratropium/Albuterol Neb 3 ML IH ONE (23:44)
[2019-03-07] MEDS ORDERED: methylPREDNISolone 125 MG/2 ML VIAL IVP ONE (23:44)
--- NOTE | 2019-03-07 23:50 | Emergency Department Note ---
Disposition Clinical Impression: COPD exacerbation Pneumonia Qualifiers: Pneumonia type: due to unspecified organism Laterality: bilateral Lung location: unspecified part of lung Qualified Code(s): J18.9 - Pneumonia, u nspecified organism Disposition: Admitted As Inpatient Condition: Fair Time of Disposition: 01:00 SOB HPI - General Chief Complaint: ED Shortness of Breath/Dyspnea Stated Complaint: SoB Time Seen by Provider: 03/07/19 23:42 Source: patient Mode of arrival: ambulatory Limitations: no limitations Nursing Notes Reviewed: Yes Vital Signs Reviewed: Yes - History of Present Illness Patient with a history of COPD is presenting to the emergency department for c oncern for COPD exacerbation. Patient does have a history of lung cancer seen at cancer Center. No chemotherapy. Radiation was proximally 3 months ago. On [place] for unknown reason per her. History of CO with 3 stents. Patient overall had symptoms started approximately 3 weeks ago. Seen by stockbroking dealer Dr. Fred chavez and started on steroids. Patient has had 2 emergency department visits since then and had a CT of her chest on March 01 concerning for was likely an infectious process less likely spread of her malignancy. Patient was told to be admitted but refused. Patient went home on steroids as well as azithromycin. She has been taking antibiotics and treatments as prescribed but is concerned as she is not getting better and only continuing to get worse. Patient will undergo further evaluation and admission. - Related Data Home Medications Medication Instructions Recorded Confirmed Aspirin Enteric Coated [Aspirin EC] 81 mg PO DAILY #0 07/20/15 10/17/18 Tramadol HCl [Ultram] 50 mg PO Q4H PRN #0 07/20/15 10/17/18 Albuterol Sulfate [Albuterol 2 puff IH Q4HR PRN 08/16/16 10/17/18 Inhaler] Fluticasone/Vilanterol [Breo 1 each IH DAILY 11/27/17 10/17/18 Ellipta 200-25 Mcg INH] Ipratropium/Albuterol Neb [Duoneb] 3 ml IH Q4HR 11/27/17 10/17/18 LORazepam [Ativan] 1 mg PO BID PRN 11/27/17 10/17/18 Oxygen 2 l NS HS 11/27/17 10/17/18 Metoprolol [Lopressor] 12.5 mg PO BID 01/01/18 10/17/18 Ondansetron HCl [Zofran] 4 mg PO DAILY PRN 04/12/18 10/17/18 Oxybutynin Chloride [Ditropan Xl] 5 mg PO DAILY 04/12/18 10/17/18 Previous Rx's Medication Instructions Recorded GuaiFENesin ER [Mucinex] 600 mg PO BID PRN #60 tbbp.12hr 04/13/18 Rivaroxaban [Xarelto] 20 mg PO DAILY #30 tablet 05/28/18 Mirtazapine [Remeron] 15 mg PO HS #30 tablet 10/17/18 Allergies Allergy/AdvReac Type Severity Reaction Status Date / Time hydromorphone [From Dilaudid] Allergy Rash Verified 03/07/19 23:43 nitrofurantoin Allergy Anaphylaxis Verified 03/07/19 23:43 [From Macrodantin] Erythromycin Base AdvReac Gastrointestinal Verified 03/07/19 23:43 Upset Penicillins AdvReac Gastrointestinal Verified 03/07/19 23:43 Upset Constitutional: Denies: fever, chills, weakness ENT ED: Denies: congestion Cardiovascular: Denies: chest pain Respiratory: Reports: cough, dyspnea, wheezes, sputum production Gastrointestinal: Denies: abdominal pain, nausea Musculoskeletal: Denies: back pain Integumentary: Denies: rash, abrasion Neurological: Denies: weakness Endocrine: Denies: fatigue Past Medical History - Past Medical History Medical history: Reports: cancer, COPD, coronary artery disease, fibromyalgia, GERD, hyperlipidemia, myocardial infarction, pulmonary embolus, other Surgical history: Reports: angioplasty/stent, appendectomy, hysterectomy Psychiatric history: Reports: anxiety, depression - Social History Smoking Status: Current every day smoker Smokeless Tobacco Status: No Alcohol use: Reports: none Drug use: Reports: none Physical Exam General: Patient is mildly tachypneic Head: Normocephalic Atraumatic Eyes: PERRL, EOMI ENT: Airway patent, no stridor Neck: supple, no meningismus Chest: Diffuse wheezing and rhonchi Cardiac: Regular rate and rhythm, no murmurs, rubs or gallops Abdomen: soft, nontender, nondistended; no guarding, rebound, or tenderness to percussion Musculoskeletal: Calves symmetric, nontender. Skin: No rash, normal skin tone. Neuro: Alert and Oriented to person, place, and time; No focal deficit. Course - Reevaluation(s) Reevaluation #1: Patient overall has improved. Patient will be started on aspirin secondary to elevated troponin however patient is on several toe and has been dealing with COPD for several weeks with no chest pain or EKG changes. Patient will continue to go for them on turn within the hospital. Patient admitted Vital Signs Temperature 99.9 F H 03/07/19 23:45 Pulse Rate 103 03/07/19 23:45 Respiratory Rate 25 03/07/19 23:45 Blood Pressure 116/69 03/07/19 23:45 O2 Sat by Pulse Oximetry 96 03/07/19 23:45 Temperature 99.9 F H 03/07/19 23:45 Pulse Rate 103 03/07/19 23:45 Respiratory Rate 21 03/08/19 00:01 Blood Pressure 116/69 03/07/19 23:45 O2 Sat by Pulse Oximetry 95 03/08/19 00:01 Oxygen Delivery Oxygen Delivery Nasal Cannula Shortness of Breath/Dyspnea - Lab Data Result diagrams: 03/07/19 23:59 03/07/19 23:59 Lab Results 03/07/19 03/07/19 03/07/19 Range/Units 23:59 23:59 23:59 WBC 13.0 H (4.3-11.1) K/mcL RBC 3.51 L (3.82-4.97) M/mcL Hgb 11.3 L (11.5-15.4) g/dL Hct 34.3 L (35.3-44.9) % MCV 97.7 (83.0-100.0) fL MCH 32.2 (28.0-33.3) pg MCHC 32.9 (31.6-35.5) g/dL RDW 13.2 (11.5-14.5) % Plt Count 357 (140-400) K/mcL MPV 8.9 L (9.4-12.4) fL Immature Gran % 0.4 (0-4) % Seg Neutrophils % 79.6 % Lymphocytes % 13.0 % Monocytes % 5.6 % Eosinophils % 1.2 % Basophils % 0.2 % Neutrophils # 10.3 H (1.6-8.9) K/mcL Lymphocytes # 1.7 (0.6-4.6) K/mcL Monocytes # 0.7 (0.0-1.3) K/mcL Eosinophils # 0.2 (0.0-0.6) K/mcL Basophils # 0.0 (0.0-0.2) K/mcL Sodium 131 L (136-145) mEq/L Potassium 3.9 (3.5-5.1) mEq/L Chloride 96 L (98-107) mEq/L Carbon Dioxide 26 (23-29) mEq/L BUN 19 (8-23) mg/dL Creatinine 0.78 (0.60-1.20) mg/dL Est GFR ( Amer) > 60 (> 60) Est GFR (Non-Af Amer) > 60 (> 60) BUN/Creatinine Ratio 24 (6-26) Glucose 103 (70-105) mg/dL Calculated Osmolality 275 L (280-300) Lactic Acid 0.5 (0.5-2.2) mmol/L Calcium 8.9 (8.6-10.3) mg/dL Troponin I 0.11 H* (< 0.04) ng/mL B-Natriuretic Peptide (Less than 100) pg/mL 03/07/19 Range/Units 23:59 WBC (4.3-11.1) K/mcL RBC (3.82-4.97) M/mcL Hgb (11.5-15.4) g/dL Hct (35.3-44.9) % MCV (83.0-100.0) fL MCH (28.0-33.3) pg MCHC (31.6-35.5) g/dL RDW (11.5-14.5) % Plt Count (140-400) K/mcL MPV (9.4-12.4) fL Immature Gran % (0-4) % Seg Neutrophils % % Lymphocytes % % Monocytes % % Eosinophils % % Basophils % % Neutrophils # (1.6-8.9) K/mcL Lymphocytes # (0.6-4.6) K/mcL Monocytes # (0.0-1.3) K/mcL Eosinophils # (0.0-0.6) K/mcL Basophils # (0.0-0.2) K/mcL Sodium (136-145) mEq/L Potassium (3.5-5.1) mEq/L Chloride (98-107) mEq/L Carbon Dioxide (23-29) mEq/L BUN (8-23) mg/dL Creatinine (0.60-1.20) mg/dL Est GFR ( Amer) (> 60) Est GFR (Non-Af Amer) (> 60) BUN/Creatinine Ratio (6-26) Glucose (70-105) mg/dL Calculated Osmolality (280-300) Lactic Acid (0.5-2.2) mmol/L Calcium (8.6-10.3) mg/dL Troponin I (< 0.04) ng/mL B-Natriuretic Peptide 25 (Less than 100) pg/mL
[2019-03-08] MEDS ORDERED: 0.9 % Sodium Chloride 500 ML IVC ONE (00:02)
[2019-03-08 00:32] LABS: BUN/Creatinine Ratio 24 (6-26); Blood Urea Nitrogen 19 mg/dL (8-23); Calcium 8.9 mg/dL (8.6-10.3); Carbon Dioxide 26 mEq/L (23-29); Chloride 96 mEq/L (98-107); Glucose 103 mg/dL (70-105); Osmolality,Calculated 275 (280-300); Potassium 3.9 mEq/L (3.5-5.1); Sodium 131 mEq/L (136-145); eGFR For Non-African Americans > 60 (> 60)
[2019-03-08 00:36] LABS: Troponin I 0.11 ng/mL (< 0.04)
[2019-03-08 00:39] LABS: Basophils % 0.2 %; Eosinophils # 0.2 K/mcL (0.0-0.6); Eosinophils % 1.2 %; Hematocrit 34.3 % (35.3-44.9); Hemoglobin 11.3 g/dL (11.5-15.4); Immature Granulocytes % 0.4 % (0-4); Lymphocytes # 1.7 K/mcL (0.6-4.6); Mean Corpuscular HGB Conc 32.9 g/dL (31.6-35.5); Mean Corpuscular Hemoglobin 32.2 pg (28.0-33.3); Mean Corpuscular Volume 97.7 fL (83.0-100.0); Mean Platelet Volume 8.9 fL (9.4-12.4); Monocytes # 0.7 K/mcL (0.0-1.3); Monocytes % 5.6 %; Neutrophils # 10.3 K/mcL (1.6-8.9); Platelet Count 357 K/mcL (140-400); Red Blood Count 3.51 M/mcL (3.82-4.97); Red Cell Distribution Width 13.2 % (11.5-14.5); Segmented Neutrophils % 79.6 %
[2019-03-08] MEDS ORDERED: Aspirin 81 MG TAB.CHEW PO STA (00:40)
[2019-03-08] MEDS ORDERED: Levofloxacin 750 MG/150 ML 750 MG/150 ML BAG IVPB ONE (00:40)
[2019-03-08] MEDS ORDERED: Albuterol 2.5 MG/3 ML NEBULIZER IH PRN (05:22)
[2019-03-08] MEDS ORDERED: Naloxone 0.4 MG/ML INJ IVP PRN (05:22)
[2019-03-08] MEDS ORDERED: Ondansetron 4 MG/2 ML VIAL IVP PRN (05:22)
[2019-03-08] MEDS ORDERED: 0.9 % Sodium Chloride w KCl 20 MEQ/1,000 ML MLS IVC SCH (05:30)
[2019-03-08] MEDS ORDERED: traMADol 50 MG TABLET PO PRN (05:30)
[2019-03-08] MEDS ORDERED: *HR* LORazepam 1 MG TABLET PO PRN (05:30)
[2019-03-08] MEDS ORDERED: Ondansetron ODT 4 MG TAB.RAPDIS PO PRN (05:30)
--- NOTE | 2019-03-08 05:39 | Internal Med History&Physical ---
Date of Encounter: 03/08/19 Time of Encounter: 04:35 Internal Medicine - H&P: HPI Chief complaint: cough, wheeze, SOB Admitted From: Emergency Dept Plans for Post Hospital Care: Home History of present illness: Ms. Rodriguez is a 73 year old female who presents with several day history of cough, shortness of breath, wheezing, fever, chills, nausea, occasional vomiting, and poor appetite. Symptoms persisted and worsened. She therefore came to ER for evaluation. Workup in the ER revealed patient to have COPD exacerbation and clinical concern for pneumonia. Imaging was negative for infiltrate. Nonetheless, there was clinical concern by ER staff that she was suffering from pneumonia. She was subsequently admitted to hospitalist service. Upon my assessment of the patient, she is resting in bed comfortably. She is coughing audibly and has symptoms mild respiratory distress. She denies any chest pain or palpitations. Her troponin was slightly elevated, but I suspect this is secondary to COPD exacerbation. Patient suffers from severe COPD and recent history of lung cancer. She was treated last year with radiation and follows closely with radiation oncology, oncology, and pulmonology. She denies any direct ill contacts recently. Past Med Surg Social Fam HX - Past Medical History Medical history: cancer, COPD, coronary artery disease, fibromyalgia, GERD, hyperlipidemia, myocardial infarction, pulmonary embolus, other Additional medical history: lung CA Psychiatric history: anxiety, depression - Past Surgical History Surgical History: angioplasty/stent, appendectomy, hysterectomy Additional surgical history: BREAST BIOPSY. 3 cardiac stents - Social History Smoking Status: Former smoker Smokeless Tobacco Status: No Alcohol use: none Drug use: none - Family History Mother Adopted: No Family Member Ethnicity: Non- Living Status: Age at : 77 Cause of : LUNG CA Hx Family Cardiac Disorders: Yes ([place]/STENT) Hx Family Respiratory Disorders: Yes (lung cancer) Hx Family Cancer: Yes Father Adopted: No Family Member Ethnicity: Non- Living Status: Age at : 49 Cause of : LUNG CA Hx Family Cardiac Disorders: Yes Hx Family Cancer: Yes Internal Medicine - H&P: Meds Aspirin Enteric Coated [Aspirin EC] 81 mg PO DAILY #0 07/20/15 [History] Tramadol HCl [Ultram] 50 mg PO Q4H PRN #0 07/20/15 [History] Ipratropium/Albuterol Neb [Duoneb] 3 ml IH Q4HR 11/27/17 [History] LORazepam [Ativan] 1 mg PO BID PRN 11/27/17 [History] Oxygen 2 l NS HS 11/27/17 [History] Metoprolol [Lopressor] 12.5 mg PO BID 01/01/18 [History] Ondansetron HCl [Zofran] 4 mg PO DAILY PRN 04/12/18 [History] Rivaroxaban [Xarelto] 20 mg PO DAILY #30 tablet 05/28/18 [Rx] Robitussin 03/08/19 [History] Allergy/AdvReac Type Severity Reaction Status Date / Time hydromorphone [From Dilaudid] Allergy Rash Verified 03/07/19 23:43 nitrofurantoin Allergy Anaphylaxis Verified 03/07/19 23:43 [From Macrodantin] Erythromycin Base AdvReac Gastrointestinal Verified 03/07/19 23:43 Upset Penicillins AdvReac Gastrointestinal Verified 03/07/19 23:43 Upset - Constitutional Constitutional: chills, fever(s), weight loss, no night sweats - EENT Eyes: no blurry vision, no change in vision Ears: no ear pain, no tinnitus Nose, mouth and throat: no nasal congestion, no sinus pressure, no sore throat - Cardiovascular Cardiovascular ROS IM: dyspnea, dyspnea on exertion, no chest pain, no orthopnea, no paroxysmal nocturnal dyspnea, no syncope - Respiratory Respiratory: cough, dyspnea, dyspnea on exertion, wheezing, excessive phlegm production, change in phlegm color, no hemoptysis, no pain on inspiration, no pain with cough - Gastrointestinal Gastrointestinal: nausea, no abdominal pain, no diarrhea, no hematemesis, no hematochezia, no melena, no vomiting - Genitourinary Genitourinary: no dysuria, no flank pain, no hematuria - Musculoskeletal Musculoskeletal ROS IM: arthralgias, no back pain - Integumentary Integumentary IM: no erythema, no rash, no jaundice - Neurological Neurological ROS: no disequilibrium, no dizziness, no focal weakness, no frequent falls, no headache(s) - Psychiatric Psychiatric: no anxiety, no depression - Endocrine Endocrine IM: heat intolerance, no cold intolerance, no polydipsia, no polyuria - Allergic/Immunologic Allergic/Immunologic: wheezing, no GI upset with certain foods - Constitutional Vitals: Temp Pulse Resp BP Pulse Ox 98.5 F 93 20 114/68 95 03/08/19 02:34 03/08/19 02:34 03/08/19 02:34 03/08/19 02:34 03/08/19 03:05 General appearance: Present: cachectic, cooperative, mild distress, A&O X 3, pleasant, answers questions appropriately Exam: see below - Head Head exam: Present: atraumatic, normal inspection - Eye Eye exam: Present: EOMI, normal appearance, PERRL. Absent: scleral icterus Pupils: Present: normal accommodation - ENT ENT exam: Present: mucous membranes dry, normal exam, normal oropharynx - Neck Neck exam general surgery: Present: full ROM, supple, trachea midline. Absent: lymphadenopathy, tenderness, nuchal rigidity, thyromegaly - Respiratory Respiratory exam: Present: prolonged expiratory phase, rales, rhonchi, wheezes, tachypnea. Absent: accessory muscle use, chest wall tenderness, respiratory distress - Cardiovascular Cardiovascular exam: Present: distant heart sounds, RRR, +S1, +S2, systolic murm ur, tachycardia. Absent: diastolic murmur - GI/Abdominal GI/Abdominal exam: Present: mass, soft. Absent: guarding, hepatomegaly, rebound, splenomegaly, tenderness - Extremities Exam Extremities exam: Present: full ROM, normal capillary refill, warm, radial pulses palpable and symmetrical. Absent: calf tenderness, joint swelling, pedal edema, tenderness - Back Exam Back exam: Absent: CVA tenderness (L), CVA tenderness (R) - Neurological Exam Neurological exam: Present: alert, CN II-XII intact, oriented X3, no focal deficits, strengths equal and symetr throughout - Psychiatric Psychiatric exam: Present: normal affect, normal mood - Skin Skin exam: Present: dry, intact, warm Internal Med - H&P Results - Labs CBC & Chem 7: 03/07/19 23:59 03/07/19 23:59 Labs: Short CBC 03/07/19 Range/Units 23:59 WBC 13.0 H (4.3-11.1) K/mcL Hgb 11.3 L (11.5-15.4) g/dL Hct 34.3 L (35.3-44.9) % Plt Count 357 (140-400) K/mcL Neutrophils # 10.3 H (1.6-8.9) K/mcL BMP 03/07/19 23:59 Sodium 131 L Potassium 3.9 Chloride 96 L Carbon Dioxide 26 BUN 19 Creatinine 0.78 Glucose 103 Calcium 8.9 Cardiac Enzymes 03/07/19 Range/Units 23:59 Troponin I 0.11 H* (< 0.04) ng/mL - EKG Data -: EKG Interpreted by Myself - EKG Data Prior EKG available for review: no EKG comments: 03/08/19 05:46 NSR; no acute changes - Impressions ITS Impressions Chest X-Ray 03/07/19 23:45 IMPRESSION: Stable portable study. D/ / Quin Johnson Cha, MD / Quin Johnson Cha, MD Interpreting Provider: Quin Johnson Cha, MD - Diagnostic Studies Chest x-ray Status: image reviewed by me (negative) - Assessment and Plan (1) Acute exacerbation of chronic obstructive airways disease Current Visit: Yes Status: Acute Assessment and plan: 1. Will treat with steroids, scheduled and PRN aerosols, and oxygen. 2. Smoking cessation advised. 3. Monitor clinically and taper steroids and treatments as indicated. (2) Lung cancer Current Visit: Yes Status: Chronic Assessment and plan: 1. Outpatient follow up with oncology and Radiation oncology. Qualifiers: Laterality: left Lung location: lower lobe of lung Qualified Code(s): C34.32 - Malignant neoplasm of lower lobe, left bronchus or lung (3) DVT prophylaxis Current Visit: Yes Status: Acute Assessment and plan: 1. Continue home dose of Xarelto.
[2019-03-08 06:48] LABS: INR 1.8; Prothrombin Time 20.1 Seconds (9.4-12.1)
[2019-03-08 06:50] LABS: Activated Partial Thrombo Time 34.3 Seconds (26.0-36.0)
[2019-03-08] MEDS: Ipratropium/Albuterol Neb 3 ML IH SCH ×5 (07:57→23:40)
[2019-03-08] MEDS ORDERED: methylPREDNISolone 125 MG/2 ML VIAL IVP SCH (08:00)
--- NOTE | 2019-03-08 08:10 | Event Note ---
<ZuleimaumaArmando - Last Filed: 03/08/19 08:10> Date of Encounter: 03/08/19 <Steve Gonzalez - Last Filed: 03/08/19 16:34> Date of Encounter: 03/08/19 Time of Encounter: 09:30 Pt admitted for COPD exacerbation and sepsis of unknown source, SIRS 4/4 (T99.9, HR 100s, RR 20, WBC 13). Cultures pending. On steroids, levaquin, and duonebs. This AM, pt states she is significantly improved and feels back to baseline. Will convert to PO prednisone and levaquin, space nebs to q6h, and monitor patient and cultures until tomorrow with possible discharge. Walk test in AM. Of note, pt's was on hospice and this AM. Pt and family state preference to leave as soon as is reasonable. Condolences given.
[2019-03-08] MEDS: Aspirin Enteric Coated 81 MG Tablet PO SCH (10:23)
[2019-03-08] MEDS: *HR* Rivaroxaban 10 MG TABLET PO SCH (10:23)
[2019-03-08] MEDS: predniSONE 20 MG TABLET PO SCH (13:35)
--- NOTE | 2019-03-08 21:25 | Electrocardiograph Report ---
[place] [address] Test Date: 2019-03-07 Pat Name: Sharon Rodriguez Department: EXAM21 Room: 2NE32 Gender: F Manager Deli: : 1945 Requested By: Sharad Trinidad Order Number: [id number] Reading MD: Jonah Baxter Measurements Intervals [place] Rate: 109 P: 78 VA: 93 QRS: 55 QRSD: 78 T: 42 QT: 317 QTc: 427 Interpretive Statements Sinus tachycardia Short VA interval Electronically Signed On 03-08-2019 21:24:13 EDT by Jonah Baxter
--- NOTE | 2019-03-08 21:32 | Electrocardiograph Report ---
[place] [address] Test Date: 2019-03-08 Pat Name: Sharon Rodriguez Department: 111 Room: [facility] Gender: F Warp Knit Operator: : 1945 Requested By: Kvng Courtney Order Number: [id number] Reading MD: Jonah Baxter Measurements Intervals [place] Rate: 74 P: 59 CT: 151 QRS: 13 QRSD: 84 T: 29 QT: 395 QTc: 422 Interpretive Statements SINUS RHYTHM Electronically Signed On 03-08-2019 21:30:40 EDT by Jonah Baxter
[2019-03-09] MEDS: Ipratropium/Albuterol Neb 3 ML IH SCH ×2 (03:57→07:20)
[2019-03-09 05:17] LABS: Basophils % 0.1 %; Hematocrit 35.4 % (35.3-44.9); Hemoglobin 11.5 g/dL (11.5-15.4); Immature Granulocytes % 0.5 % (0-4); Lymphocytes # 0.7 K/mcL (0.6-4.6); Lymphocytes % 5.6 %; Mean Corpuscular HGB Conc 32.5 g/dL (31.6-35.5); Mean Corpuscular Hemoglobin 31.9 pg (28.0-33.3); Mean Corpuscular Volume 98.1 fL (83.0-100.0); Monocytes # 0.3 K/mcL (0.0-1.3); Monocytes % 2.9 %; Neutrophils # 10.5 K/mcL (1.6-8.9); Platelet Count 378 K/mcL (140-400); Red Blood Count 3.61 M/mcL (3.82-4.97); Red Cell Distribution Width 12.8 % (11.5-14.5); Segmented Neutrophils % 90.9 %
[2019-03-09 05:37] LABS: Alanine Aminotransferase 15 Units/L (7-52); Albumin 3.2 g/dL (3.5-5.7); Albumin/Globulin Ratio 1.1 (1.1-2.2); Alkaline Phosphatase 61 Units/L (34-104); Aspartate Amino Transferase 11 Units/L (13-39); BUN/Creatinine Ratio 32 (6-26); Bilirubin,Total 0.5 mg/dL (0.3-1.0); Blood Urea Nitrogen 18 mg/dL (8-23); Calcium 9.1 mg/dL (8.6-10.3); Carbon Dioxide 28 mEq/L (23-29); Chloride 102 mEq/L (98-107); Globulin 2.8 g/dL (2.4-3.5); Glucose 135 mg/dL (70-105); Osmolality,Calculated 294 (280-300); Potassium 3.6 mEq/L (3.5-5.1); Sodium 140 mEq/L (136-145); eGFR For Non-African Americans > 60 (> 60)
[2019-03-09 07:00] VITALS: BP 107/68
--- NOTE | 2019-03-09 08:17 | Discharge Summary ---
Date of Encounter: 03/09/19 Time of Encounter: 08:13 Hospital course: Dear Doctors, I recently had the opportunity to care for this patient during their recent hospital stay at [facility]. Sharon Rodriguez is a 73 F w hx lung cancer, COPD on 2L qhs, CAD s/p [place], PE on AC, anx/dep, who presented at time of admission with SOB. Pt noted to be wheezy, tachypneic, febrile, and hypoxic 89% on room air at rest. She was seen in the ED on 03/[address] chest showed likely pneumonia; pt refused admission and discharged on azithromycin course. She returned 03/07 with aforementioned symptoms. Cultures drawn, given levaquin, solumedrol, and nebs, and admitted. In the hospital, pt quickly improved symptomatically. She was transitioned to PO abx and steroids. Unfortunately, during her first night in hospital, patient's who was on hospice , and she and her family were pressed for making arrangements and thus she strongly requested to leave. We agreed for monitoring for 1 day on PO meds and spaced nebs, and today she continues to look, feel, and sound better. While still biphasic wheezing, aeration is improving and she will continue an outpatient course of abx and steroids, and has Pulm follow up next week. Maintaining O2 sats in low 90s on room air. Dx: CAP, sepsis, COPD exacerbation Pertinent tests/consults: CT chest prior to admission showing b/l PNA Follow up: PCP 1 week Tests pending: BCx ngtd x48h Med changes: - new levaquin 750 daily, last dose 03/13 - new prednisone 40 daily, last dose 03/13 - stop ativan Mental status: awake, fully oriented Code status: DNRCC-A / DNI It has been my pleasure participating in this patient's care. Please contact me with any questions or concerns regarding their hospital stay. Sincerely, Steve Gonzalez MD - Discharge Medications Prescriptions: New levoFLOXacin [Levaquin] 750 mg PO DAILY #4 tablet predniSONE [PredniSONE] 40 mg PO DAILY #8 tablet Continued Tramadol HCl [Ultram] 50 mg PO Q4H PRN #0 PRN Reason: Pain Aspirin Enteric Coated [Aspirin EC] 81 mg PO DAILY #0 Oxygen 2 l NS HS Ipratropium/Albuterol Neb [Duoneb] 3 ml IH Q4HR Metoprolol [Lopressor] 12.5 mg PO BID Ondansetron HCl [Zofran] 4 mg PO DAILY PRN PRN Reason: Nausea Rivaroxaban [Xarelto] 20 mg PO DAILY #30 tablet Robitussin Discontinued LORazepam [Ativan] 1 mg PO BID PRN PRN Reason: Anxiety Home Medications: Aspirin Enteric Coated [Aspirin EC] 81 mg PO DAILY #0 07/20/15 [History] Tramadol HCl [Ultram] 50 mg PO Q4H PRN #0 07/20/15 [History] Ipratropium/Albuterol Neb [Duoneb] 3 ml IH Q4HR 11/27/17 [History] Oxygen 2 l NS HS 11/27/17 [History] Metoprolol [Lopressor] 12.5 mg PO BID 01/01/18 [History] Ondansetron HCl [Zofran] 4 mg PO DAILY PRN 04/12/18 [History] Rivaroxaban [Xarelto] 20 mg PO DAILY #30 tablet 05/28/18 [Rx] Robitussin 03/08/19 [History] levoFLOXacin [Levaquin] 750 mg PO DAILY #4 tablet 03/09/19 [Rx] predniSONE [PredniSONE] 40 mg PO DAILY #8 tablet 03/09/19 [Rx] Allergies/Adverse Reactions: Allergy/AdvReac Type Severity Reaction Status Date / Time hydromorphone [From Dilaudid] Allergy Rash Verified 03/07/19 23:43 nitrofurantoin Allergy Anaphylaxis Verified 03/07/19 23:43 [From Macrodantin] Erythromycin Base AdvReac Gastrointestinal Verified 03/07/19 23:43 Upset Penicillins AdvReac Gastrointestinal Verified 03/07/19 23:43 Upset Date of admission: 03/08/19 01:21 Primary care physician: Arelis Reinoso CNP Consults: 03/08/19 02:58 Consult to Nutrition [CONS] Routine Comment: Consulting Provider: NUTRITION Reason for Dietary Consult: MST Score - Constitutional Vitals: Temp Pulse Resp BP Pulse Ox 97.9 F 97 14 107/68 97 03/09/19 06:57 03/09/19 06:57 03/09/19 06:57 03/09/19 06:57 03/09/19 06:57 General appearance: Present: cachectic, cooperative, mild distress, A&O X 3, pleasant, answers questions appropriately Exam: General: NAD, good eye contact, chronically ill appearing, elderly Thoracic: decent aeration, significant biphasic wheezing throughout all lung [place] but improved from yesterday Cardio: Normal S1 and S2, regular rate and rhythm Abdomen: Soft, nontender Extremities: Warm, well perfused. No edema. Neuro: Awake, fully oriented. Speech fluent - Patient Status Disposition: Home, Self-Care Condition: Fair Functional capacity at discharge: independent ambulation Overall status at discharge: patient is progressing back to baseline - Discharge Instructions Instructions: Prednisone (By mouth), Levofloxacin (By mouth), Pulmonary Embolism (DC), Acute Respiratory Distress Syndrome (DC), Chronic Obstructive Pulmonary Disease (DC), Pneumonia (DC), Cigarette Smoking and Your Health, Software Intern (GEN) Follow Up With: Arelis Reinoso CNP [Primary Care Provider] - (Referral made, the physicians office will contact the patient. ) - Diet and Activity Activity: resume usual activities as tolerated Diet: advance to your usual diet
[2019-03-09] MEDS ORDERED: levoFLOXacin 750 MG TABLET PO SCH (09:00)
[2019-03-09] MEDS: predniSONE 20 MG TABLET PO SCH (09:38)
[2019-03-09] MEDS: *HR* Rivaroxaban 10 MG TABLET PO SCH (09:38)
[2019-03-09] MEDS: Aspirin Enteric Coated 81 MG Tablet PO SCH (09:38)
[2019-03-10] MEDS ORDERED: Levofloxacin 750 MG/150 ML 750 MG/150 ML BAG IVPB SCH (06:00)
== END 2019-03-09 11:37 | disposition home or self-care (01) ==
LOC: EMEROOARM 23:31 → 2NENU 23:31 → SUATTDRO 03-08 01:21 → 2NENU 03-08 02:15
PROVIDERS: ADMIT Pediatrics; ATTEND Internal Medicine

== ENCOUNTER 2019-12-02 20:08 | Inpatient (IN) ==
[2019-12-02] MEDS ORDERED: methylPREDNISolone 125 MG/2 ML VIAL IVP ONE (20:22)
[2019-12-02] MEDS ORDERED: Ipratropium/Albuterol Neb 3 ML IH ONE (20:22)
[2019-12-02 21:19] LABS: Basophils # 0.1 K/mcL (0.0-0.2); Basophils % 0.3 %; Eosinophils # 0.1 K/mcL (0.0-0.6); Eosinophils % 0.7 %; Hematocrit 29.8 % (35.3-44.9); Hemoglobin 9.3 g/dL (11.5-15.4); Immature Granulocytes % 0.5 % (0-4); Lymphocytes # 0.5 K/mcL (0.6-4.6); Lymphocytes % 3.4 %; Mean Corpuscular HGB Conc 31.2 g/dL (31.6-35.5); Mean Corpuscular Hemoglobin 29.4 pg (28.0-33.3); Mean Corpuscular Volume 94.3 fL (83.0-100.0); Mean Platelet Volume 9.1 fL (9.4-12.4); Monocytes # 0.5 K/mcL (0.0-1.3); Neutrophils # 14.2 K/mcL (1.6-8.9); Platelet Count 391 K/mcL (140-400); Red Blood Count 3.16 M/mcL (3.82-4.97); Red Cell Distribution Width 15.5 % (11.5-14.5); Segmented Neutrophils % 92.1 %; White Blood Count 15.4 K/mcL (4.3-11.1)
[2019-12-02 21:26] LABS: INR 2.7; Prothrombin Time 30.2 Seconds (9.4-12.1)
[2019-12-02 21:41] LABS: Alanine Aminotransferase 16 Units/L (7-52); Alkaline Phosphatase 69 Units/L (34-104); Aspartate Amino Transferase 8 Units/L (13-39); BUN/Creatinine Ratio 31 (6-26); Bilirubin,Total 0.6 mg/dL (0.3-1.0); Blood Urea Nitrogen 18 mg/dL (8-23); Calcium 8.4 mg/dL (8.6-10.3); Carbon Dioxide 23 mEq/L (23-29); Chloride 97 mEq/L (98-107); Globulin 2.9 g/dL (2.4-3.5); Glucose 102 mg/dL (70-105); Osmolality,Calculated 274 (280-300); Potassium 4.1 mEq/L (3.5-5.1); Sodium 131 mEq/L (136-145); Total Protein 5.9 g/dL (6.4-8.9); Troponin I < 0.03 ng/mL (< 0.04); eGFR For African Americans > 60 (> 60); eGFR For Non-African Americans > 60 (> 60)
[2019-12-02] MEDS ORDERED: levoFLOXacin 500 MG/100 ML 500 MG/100 ML BAG IVPB ONE (22:10)
[2019-12-02] MEDS ORDERED: Naloxone 0.4 MG/ML INJ IVP PRN (23:25)
[2019-12-02] MEDS ORDERED: Ipratropium/Albuterol Neb 3 ML IH PRN (23:29)
[2019-12-02] MEDS ORDERED: Acetaminophen 325 MG TABLET PO PRN (23:29)
[2019-12-03] MEDS: 0.9 % Sodium Chloride 1,000 ML IVC SCH ×2 (00:24→08:34)
[2019-12-03] MEDS ORDERED: Naloxone 0.4 MG/ML INJ IVP PRN (02:18)
[2019-12-03 02:36] LABS: Basophils % 0.1 %; Hematocrit 30.4 % (35.3-44.9); Hemoglobin 9.5 g/dL (11.5-15.4); Immature Granulocytes % 0.5 % (0-4); Lymphocytes # 0.2 K/mcL (0.6-4.6); Lymphocytes % 1.6 %; Mean Corpuscular HGB Conc 31.3 g/dL (31.6-35.5); Mean Corpuscular Hemoglobin 29.4 pg (28.0-33.3); Mean Corpuscular Volume 94.1 fL (83.0-100.0); Mean Platelet Volume 9.1 fL (9.4-12.4); Monocytes % 0.3 %; Neutrophils # 10.8 K/mcL (1.6-8.9); Platelet Count 367 K/mcL (140-400); Red Blood Count 3.23 M/mcL (3.82-4.97); Red Cell Distribution Width 15.6 % (11.5-14.5); Segmented Neutrophils % 97.5 %; White Blood Count 11.1 K/mcL (4.3-11.1)
[2019-12-03 02:45] LABS: INR 2.9
[2019-12-03 02:54] LABS: Alanine Aminotransferase 15 Units/L (7-52); Alkaline Phosphatase 74 Units/L (34-104); Aspartate Amino Transferase 8 Units/L (13-39); BUN/Creatinine Ratio 27 (6-26); Bilirubin,Total 0.5 mg/dL (0.3-1.0); Blood Urea Nitrogen 17 mg/dL (8-23); Calcium 8.4 mg/dL (8.6-10.3); Carbon Dioxide 26 mEq/L (23-29); Chloride 99 mEq/L (98-107); Glucose 268 mg/dL (70-105); Magnesium 1.8 mg/dL (1.6-2.6); Osmolality,Calculated 285 (280-300); Potassium 4.4 mEq/L (3.5-5.1); Sodium 132 mEq/L (136-145); eGFR For African Americans > 60 (> 60); eGFR For Non-African Americans > 60 (> 60)
[2019-12-03] MEDS ORDERED: *HR* Dextrose 50 % in Water (Syg) 50 ML SYRINGE IVP PRN (03:17)
[2019-12-03] MEDS ORDERED: Dextrose Gel 15 GM/37.5 ML TUBE PO PRN ×2 (03:17)
[2019-12-03] MEDS ORDERED: D5% in Water 1,000 ML IVC PRN (03:17)
[2019-12-03 03:42] LABS: Platelet Estimate Normal (Normal)
[2019-12-03] MEDS: Ipratropium/Albuterol Neb 3 ML IH SCH ×6 (04:11→23:02)
[2019-12-03] MEDS ORDERED: MethylPREDNISolone 40 MG/ML VIAL IVP SCH (05:00)
[2019-12-03 06:31] LABS: Adenovirus Not Detected (Not Detect); Bordetella Pertussis Not Detected (Not Detect); Chlamydophila pneumoniae Not Detected (Not Detect); Coronavirus 229E Not Detected (Not Detect); Coronavirus HKU1 Not Detected (Not Detect); Coronavirus NL63 Not Detected (Not Detect); Coronavirus OC43 Not Detected (Not Detect); Human Metapneumovirus Not Detected (Not Detect); Human Rhinovirus/Enterovirus Not Detected (Not Detect); Influenza A Subtype 2009 H1 Not Detected (Not Detect); Influenza B Not Detected (Not Detect); Mycoplasma pneumoniae Not Detected (Not Detect); Parainfluenza Virus 1 Not Detected (Not Detect); Parainfluenza Virus 2 Not Detected (Not Detect); Parainfluenza Virus 3 Not Detected (Not Detect); Parainfluenza Virus 4 Not Detected (Not Detect); Respiratory Syncytial Virus Not Detected (Not Detect)
[2019-12-03] MEDS: Tiotropium 18 MCG inhalation IH SCH (07:37)
[2019-12-03] MEDS: Insulin LISPRO 300 UNITS/3 ML VIAL SQ SCH ×4 (08:33→21:29)
[2019-12-03] MEDS ORDERED: predniSONE 20 MG TABLET PO SCH (09:00)
[2019-12-03] MEDS: Budesonide/Formoterol 80/4.5 1 PUFF INH IH SCH ×2 (13:44→19:46)
[2019-12-03] MEDS: *HR* Rivaroxaban 10 MG TABLET PO SCH (17:11)
[2019-12-03] MEDS: MethylPREDNISolone 40 MG/ML VIAL IVP SCH ×2 (17:11→23:43)
[2019-12-03] MEDS: *HR* LORazepam 1 MG TABLET PO PRN (17:14)
[2019-12-03] MEDS: Insulin DETEMIR 100 UNIT/ML X5UNITS SQ SCH (21:26)
[2019-12-03] MEDS: levoFLOXacin 500 MG/100 ML 500 MG/100 ML BAG IVPB SCH (23:43)
[2019-12-04] MEDS: Ipratropium/Albuterol Neb 3 ML IH SCH ×5 (04:16→20:21)
[2019-12-04 07:08] LABS: Hematocrit 31.1 % (35.3-44.9); Hemoglobin 9.5 g/dL (11.5-15.4); Mean Corpuscular HGB Conc 30.5 g/dL (31.6-35.5); Mean Corpuscular Hemoglobin 28.9 pg (28.0-33.3); Mean Corpuscular Volume 94.5 fL (83.0-100.0); Mean Platelet Volume 9.1 fL (9.4-12.4); Platelet Count 393 K/mcL (140-400); Red Blood Count 3.29 M/mcL (3.82-4.97); Red Cell Distribution Width 15.6 % (11.5-14.5); White Blood Count 9.1 K/mcL (4.3-11.1)
[2019-12-04] MEDS: Budesonide/Formoterol 80/4.5 1 PUFF INH IH SCH ×2 (07:11→20:21)
[2019-12-04] MEDS: Tiotropium 18 MCG inhalation IH SCH (07:15)
[2019-12-04 07:30] LABS: BUN/Creatinine Ratio 27 (6-26); Blood Urea Nitrogen 13 mg/dL (8-23); Calcium 8.7 mg/dL (8.6-10.3); Carbon Dioxide 28 mEq/L (23-29); Chloride 105 mEq/L (98-107); Glucose 145 mg/dL (70-105); Osmolality,Calculated 289 (280-300); Sodium 138 mEq/L (136-145); eGFR For African Americans > 60 (> 60); eGFR For Non-African Americans > 60 (> 60)
[2019-12-04] MEDS: MethylPREDNISolone 40 MG/ML VIAL IVP SCH ×2 (09:13→16:08)
[2019-12-04] MEDS: Insulin LISPRO 300 UNITS/3 ML VIAL SQ SCH ×4 (09:13→21:13)
[2019-12-04] MEDS: *HR* Rivaroxaban 10 MG TABLET PO SCH (16:08)
[2019-12-04] MEDS: Insulin DETEMIR 100 UNIT/ML X5UNITS SQ SCH (21:12)
[2019-12-04] MEDS: *HR* LORazepam 1 MG TABLET PO PRN (21:19)
[2019-12-05] MEDS: levoFLOXacin 500 MG/100 ML 500 MG/100 ML BAG IVPB SCH (00:15)
[2019-12-05] MEDS: MethylPREDNISolone 40 MG/ML VIAL IVP SCH ×2 (00:15→08:22)
[2019-12-05] MEDS: Ipratropium/Albuterol Neb 3 ML IH SCH ×4 (00:21→11:17)
[2019-12-05 05:34] LABS: Hematocrit 29.3 % (35.3-44.9); Mean Corpuscular HGB Conc 30.7 g/dL (31.6-35.5); Mean Corpuscular Hemoglobin 28.8 pg (28.0-33.3); Mean Corpuscular Volume 93.6 fL (83.0-100.0); Platelet Count 356 K/mcL (140-400); Red Blood Count 3.13 M/mcL (3.82-4.97); Red Cell Distribution Width 15.8 % (11.5-14.5); White Blood Count 8.1 K/mcL (4.3-11.1)
[2019-12-05 05:37] LABS: BUN/Creatinine Ratio 29 (6-26); Blood Urea Nitrogen 18 mg/dL (8-23); Calcium 8.7 mg/dL (8.6-10.3); Carbon Dioxide 26 mEq/L (23-29); Chloride 102 mEq/L (98-107); Glucose 154 mg/dL (70-105); Osmolality,Calculated 291 (280-300); Potassium 3.9 mEq/L (3.5-5.1); Sodium 138 mEq/L (136-145); eGFR For African Americans > 60 (> 60); eGFR For Non-African Americans > 60 (> 60)
[2019-12-05] MEDS: Tiotropium 18 MCG inhalation IH SCH (07:08)
[2019-12-05] MEDS: Budesonide/Formoterol 80/4.5 1 PUFF INH IH SCH (07:09)
[2019-12-05 08:15] VITALS: BP 121/65
[2019-12-05] MEDS: Insulin LISPRO 300 UNITS/3 ML VIAL SQ SCH (08:27)
== END 2019-12-05 12:08 | disposition home health service (06) | DRG 871 ==
LOC: 3BNU 20:08 → EMEROOARM 20:08 → SUATTDRO 22:18 → 3BNU 22:43
PROVIDERS: ADMIT Pharmacist; ATTEND Pharmacist

== ENCOUNTER 2019-12-21 11:59 | Inpatient (IN) ==
[2019-12-21] MEDS ORDERED: Ipratropium/Albuterol Neb 3 ML IH ONE (12:15)
[2019-12-21] MEDS ORDERED: methylPREDNISolone 125 MG/2 ML VIAL IVP ONE (12:30)
[2019-12-21] MEDS ORDERED: 0.9 % Sodium Chloride 1,500 ML IV ONE (12:30)
[2019-12-21] MEDS ORDERED: Piperacillin/Tazobactam 3.375 GM in 0.9 % Sodium Chloride Mini Bag 100 ML IVPB ONE (12:30)
[2019-12-21] MEDS ORDERED: methylPREDNISolone 125 MG/2 ML VIAL ONE (12:32)
[2019-12-21] MEDS ORDERED: Piperacillin/Tazobactam 3.375 GM VIAL ONE (12:47)
[2019-12-21] MEDS ORDERED: Vancomycin 1,000 MG VIAL ONE (12:47)
[2019-12-21] MEDS ORDERED: 0.9 % Sodium Chloride 250 ML ONE (12:50)
[2019-12-21] MEDS ORDERED: 0.9 % Sodium Chloride 1,000 ML ONE (13:50)
[2019-12-21] MEDS ORDERED: Ondansetron 4 MG/2 ML VIAL IVP PRN (17:16)
[2019-12-21] MEDS ORDERED: Naloxone 0.4 MG/ML INJ IVP PRN (17:16)
[2019-12-21] MEDS ORDERED: Isovue-370 500 ML BOTTLE IVP ONE (17:21)
[2019-12-21] MEDS: 0.9 % Sodium Chloride 1,000 ML IVC SCH (19:16)
[2019-12-21] MEDS: *HR* Rivaroxaban 10 MG TABLET PO SCH (19:17)
[2019-12-21] MEDS ORDERED: Vancomycin 500 MG in 0.9 % Sodium Chloride Mini Bag 100 ML IVPB SCH (20:00)
[2019-12-21] MEDS: Ipratropium/Albuterol Neb 3 ML IH SCH ×2 (20:09→20:45)
[2019-12-21] MEDS: MethylPREDNISolone 40 MG/ML VIAL IVP SCH (23:29)
[2019-12-21] MEDS: Piperacillin/Tazobactam 3.375 GM in 0.9 % Sodium Chloride Mini Bag 100 ML IVPB SCH (23:29)
[2019-12-21 23:46] LABS: Basophils % 0.1 %; Eosinophils # 0.1 K/mcL (0.0-0.6); Eosinophils % 0.6 %; Hematocrit 33.8 % (35.3-44.9); Hemoglobin 10.4 g/dL (11.5-15.4); Immature Granulocytes % 0.4 % (0-4); Lymphocytes # 0.5 K/mcL (0.6-4.6); Lymphocytes % 5.6 %; Mean Corpuscular HGB Conc 30.8 g/dL (31.6-35.5); Mean Corpuscular Hemoglobin 29.1 pg (28.0-33.3); Mean Corpuscular Volume 94.4 fL (83.0-100.0); Mean Platelet Volume 9.4 fL (9.4-12.4); Monocytes # 0.3 K/mcL (0.0-1.3); Neutrophils # 7.2 K/mcL (1.6-8.9); Platelet Count 214 K/mcL (140-400); Red Blood Count 3.58 M/mcL (3.82-4.97); Red Cell Distribution Width 15.9 % (11.5-14.5); Segmented Neutrophils % 89.3 %; White Blood Count 8.1 K/mcL (4.3-11.1)
[2019-12-22 00:55] LABS: BUN/Creatinine Ratio 29 (6-26); Blood Urea Nitrogen 20 mg/dL (8-23); Calcium 8.9 mg/dL (8.6-10.3); Carbon Dioxide 28 mEq/L (23-29); Chloride 98 mEq/L (98-107); Glucose 130 mg/dL (70-105); Magnesium 2.2 mg/dL (1.6-2.6); Osmolality,Calculated 278 (280-300); Potassium 3.9 mEq/L (3.5-5.1); Sodium 132 mEq/L (136-145); Troponin I 0.03 ng/mL (< 0.04); eGFR For African Americans > 60 (> 60); eGFR For Non-African Americans > 60 (> 60)
[2019-12-22] MEDS: Ipratropium/Albuterol Neb 3 ML IH SCH ×6 (03:32→23:33)
[2019-12-22] MEDS: Piperacillin/Tazobactam 3.375 GM in 0.9 % Sodium Chloride Mini Bag 100 ML IVPB SCH ×3 (07:32→23:49)
[2019-12-22] MEDS: MethylPREDNISolone 40 MG/ML VIAL IVP SCH ×3 (07:32→23:49)
[2019-12-22 07:42] LABS: Hematocrit 26.1 % (35.3-44.9); Immature Granulocytes % 0.6 % (0-4); Lymphocytes # 0.2 K/mcL (0.6-4.6); Lymphocytes % 3.6 %; Mean Corpuscular HGB Conc 30.7 g/dL (31.6-35.5); Mean Corpuscular Hemoglobin 28.8 pg (28.0-33.3); Mean Corpuscular Volume 93.9 fL (83.0-100.0); Mean Platelet Volume 9.7 fL (9.4-12.4); Monocytes # 0.1 K/mcL (0.0-1.3); Monocytes % 1.5 %; Neutrophils # 4.9 K/mcL (1.6-8.9); Platelet Count 165 K/mcL (140-400); Red Blood Count 2.78 M/mcL (3.82-4.97); Red Cell Distribution Width 15.8 % (11.5-14.5); Segmented Neutrophils % 94.3 %; White Blood Count 5.2 K/mcL (4.3-11.1)
[2019-12-22 07:56] LABS: BUN/Creatinine Ratio 45 (6-26); Blood Urea Nitrogen 21 mg/dL (8-23); Calcium 8.2 mg/dL (8.6-10.3); Carbon Dioxide 27 mEq/L (23-29); Chloride 103 mEq/L (98-107); Glucose 155 mg/dL (70-105); Osmolality,Calculated 286 (280-300); Potassium 3.7 mEq/L (3.5-5.1); Sodium 135 mEq/L (136-145); eGFR For African Americans > 60 (> 60); eGFR For Non-African Americans > 60 (> 60)
[2019-12-22 08:34] LABS: INR 1.7; Prothrombin Time 19.5 Seconds (9.4-12.1)
[2019-12-22 08:37] LABS: Activated Partial Thrombo Time 31.5 Seconds (26.0-36.0)
[2019-12-22] MEDS ORDERED: Aminoglycoside Consult 1 EACH MC ONE (09:26)
[2019-12-22] MEDS ORDERED: Vancomycin 500 MG in 0.9 % Sodium Chloride Mini Bag 100 ML IVPB SCH (12:30)
[2019-12-22] MEDS: 0.9 % Sodium Chloride 1,000 ML IVC SCH (14:49)
[2019-12-22] MEDS: *HR* Rivaroxaban 10 MG TABLET PO SCH (17:00)
[2019-12-22] MEDS ORDERED: NON-FORMULARY MEDICATION 1 EACH EACH (Rivaroxaban [Xarelto] 20 MG) PO SCH (21:00)
[2019-12-22] MEDS: *HR* LORazepam 1 MG TABLET PO PRN (23:54)
[2019-12-23] MEDS: Ipratropium/Albuterol Neb 3 ML IH SCH ×6 (04:12→23:46)
[2019-12-23 06:03] LABS: Hematocrit 25.9 % (35.3-44.9); Hemoglobin 7.9 g/dL (11.5-15.4); Immature Granulocytes % 0.4 % (0-4); Lymphocytes # 0.2 K/mcL (0.6-4.6); Mean Corpuscular HGB Conc 30.5 g/dL (31.6-35.5); Mean Corpuscular Hemoglobin 28.4 pg (28.0-33.3); Mean Corpuscular Volume 93.2 fL (83.0-100.0); Mean Platelet Volume 9.5 fL (9.4-12.4); Monocytes # 0.1 K/mcL (0.0-1.3); Monocytes % 1.5 %; Neutrophils # 6.4 K/mcL (1.6-8.9); Platelet Count 171 K/mcL (140-400); Red Blood Count 2.78 M/mcL (3.82-4.97); Red Cell Distribution Width 15.8 % (11.5-14.5); Segmented Neutrophils % 95.1 %; White Blood Count 6.7 K/mcL (4.3-11.1)
[2019-12-23 06:24] LABS: BUN/Creatinine Ratio 41 (6-26); Blood Urea Nitrogen 25 mg/dL (8-23); Calcium 8.2 mg/dL (8.6-10.3); Carbon Dioxide 29 mEq/L (23-29); Chloride 103 mEq/L (98-107); Glucose 184 mg/dL (70-105); Osmolality,Calculated 293 (280-300); Potassium 4.1 mEq/L (3.5-5.1); Sodium 137 mEq/L (136-145); eGFR For African Americans > 60 (> 60); eGFR For Non-African Americans > 60 (> 60)
[2019-12-23] MEDS: Piperacillin/Tazobactam 3.375 GM in 0.9 % Sodium Chloride Mini Bag 100 ML IVPB SCH ×2 (07:46→16:44)
[2019-12-23] MEDS: MethylPREDNISolone 40 MG/ML VIAL IVP SCH ×2 (07:47→16:47)
[2019-12-23] MEDS: *HR* Rivaroxaban 10 MG TABLET PO SCH (16:47)
[2019-12-23] MEDS: *HR* LORazepam 1 MG TABLET PO PRN (20:44)
[2019-12-24] MEDS: Piperacillin/Tazobactam 3.375 GM in 0.9 % Sodium Chloride Mini Bag 100 ML IVPB SCH ×3 (00:14→16:57)
[2019-12-24] MEDS: Ipratropium/Albuterol Neb 3 ML IH SCH ×5 (03:35→20:26)
[2019-12-24] MEDS: MethylPREDNISolone 40 MG/ML VIAL IVP SCH (05:41)
[2019-12-24 06:22] LABS: Hematocrit 26.6 % (35.3-44.9); Immature Granulocytes % 0.6 % (0-4); Lymphocytes # 0.6 K/mcL (0.6-4.6); Lymphocytes % 7.5 %; Mean Corpuscular HGB Conc 30.1 g/dL (31.6-35.5); Mean Corpuscular Hemoglobin 28.2 pg (28.0-33.3); Mean Corpuscular Volume 93.7 fL (83.0-100.0); Mean Platelet Volume 9.1 fL (9.4-12.4); Monocytes # 0.5 K/mcL (0.0-1.3); Monocytes % 5.9 %; Neutrophils # 7.2 K/mcL (1.6-8.9); Platelet Count 175 K/mcL (140-400); Red Blood Count 2.84 M/mcL (3.82-4.97); White Blood Count 8.4 K/mcL (4.3-11.1)
[2019-12-24 06:38] LABS: BUN/Creatinine Ratio 33 (6-26); Blood Urea Nitrogen 29 mg/dL (8-23); Calcium 8.2 mg/dL (8.6-10.3); Carbon Dioxide 32 mEq/L (23-29); Chloride 101 mEq/L (98-107); Glucose 131 mg/dL (70-105); Osmolality,Calculated 290 (280-300); Potassium 4.3 mEq/L (3.5-5.1); Sodium 136 mEq/L (136-145); eGFR For African Americans > 60 (> 60); eGFR For Non-African Americans > 60 (> 60)
[2019-12-24] MEDS ORDERED: Iron Sucrose Complex 200 MG in 0.9 % Sodium Chloride 100 ML IVPB ONE ×2 (08:12→13:00)
[2019-12-24] MEDS ORDERED: predniSONE 20 MG TABLET PO SCH (09:00)
[2019-12-24] MEDS: *HR* Rivaroxaban 10 MG TABLET PO SCH (16:59)
[2019-12-24] MEDS ORDERED: predniSONE 20 MG TABLET PO ONE (18:00)
[2019-12-24] MEDS: *HR* LORazepam 1 MG TABLET PO PRN (20:06)
[2019-12-25] MEDS: Ipratropium/Albuterol Neb 3 ML IH SCH ×5 (00:01→15:26)
[2019-12-25] MEDS: Piperacillin/Tazobactam 3.375 GM in 0.9 % Sodium Chloride Mini Bag 100 ML IVPB SCH ×2 (00:04→08:04)
[2019-12-25 05:44] LABS: Basophils % 0.2 %; Hematocrit 29.9 % (35.3-44.9); Hemoglobin 8.9 g/dL (11.5-15.4); Immature Granulocytes % 1.2 % (0-4); Lymphocytes # 0.7 K/mcL (0.6-4.6); Lymphocytes % 8.8 %; Mean Corpuscular HGB Conc 29.8 g/dL (31.6-35.5); Mean Corpuscular Hemoglobin 28.1 pg (28.0-33.3); Mean Corpuscular Volume 94.3 fL (83.0-100.0); Mean Platelet Volume 9.7 fL (9.4-12.4); Monocytes # 0.6 K/mcL (0.0-1.3); Monocytes % 6.6 %; Neutrophils # 6.9 K/mcL (1.6-8.9); Nucleated Red Blood Cells 0.2 /100 WBC (0); Platelet Count 183 K/mcL (140-400); Red Blood Count 3.17 M/mcL (3.82-4.97); Red Cell Distribution Width 16.1 % (11.5-14.5); Segmented Neutrophils % 83.2 %; White Blood Count 8.3 K/mcL (4.3-11.1)
[2019-12-25 05:59] LABS: BUN/Creatinine Ratio 45 (6-26); Blood Urea Nitrogen 28 mg/dL (8-23); Calcium 8.3 mg/dL (8.6-10.3); Carbon Dioxide 30 mEq/L (23-29); Chloride 100 mEq/L (98-107); Glucose 116 mg/dL (70-105); Osmolality,Calculated 286 (280-300); Potassium 4.3 mEq/L (3.5-5.1); Sodium 135 mEq/L (136-145); eGFR For African Americans > 60 (> 60); eGFR For Non-African Americans > 60 (> 60)
[2019-12-25 06:58] VITALS: BP 132/78
[2019-12-25] MEDS ORDERED: predniSONE 20 MG TABLET PO SCH (09:00)
== END 2019-12-25 15:38 | disposition home health service (06) | DRG 177 ==
LOC: EMEROOARM 11:59 → 3BNU 15:40 → SUATTDRO 17:57 → 3BNU 17:57
PROVIDERS: ADMIT Family Medicine; ATTEND Internal Medicine

== ENCOUNTER 2019-12-26 13:01 | Inpatient (IN) ==
[2019-12-26] MEDS ORDERED: Ipratropium/Albuterol Neb 3 ML IH ONE (13:07)
[2019-12-26 14:13] LABS: Hematocrit 31.7 % (35.3-44.9); Hemoglobin 9.6 g/dL (11.5-15.4); Mean Corpuscular HGB Conc 30.3 g/dL (31.6-35.5); Mean Corpuscular Hemoglobin 28.1 pg (28.0-33.3); Mean Corpuscular Volume 92.7 fL (83.0-100.0); Mean Platelet Volume 9.2 fL (9.4-12.4); Platelet Count 228 K/mcL (140-400); Red Blood Count 3.42 M/mcL (3.82-4.97); Red Cell Distribution Width 16.4 % (11.5-14.5); White Blood Count 9.2 K/mcL (4.3-11.1)
[2019-12-26 14:29] LABS: BUN/Creatinine Ratio 52 (6-26); Blood Urea Nitrogen 25 mg/dL (8-23); Calcium 8.4 mg/dL (8.6-10.3); Carbon Dioxide 29 mEq/L (23-29); Chloride 97 mEq/L (98-107); Glucose 142 mg/dL (70-105); Osmolality,Calculated 281 (280-300); Potassium 3.9 mEq/L (3.5-5.1); Sodium 132 mEq/L (136-145); eGFR For African Americans > 60 (> 60); eGFR For Non-African Americans > 60 (> 60)
[2019-12-26 15:22] LABS: VBG HCO3 29 mEq/L (21-27); VBG PCO2 43 mmHg (41-51); VBG PH 7.44 pH Units (7.32-7.42); VBG PO2 210 mmHg (25-50)
[2019-12-26] MEDS ORDERED: Naloxone 0.4 MG/ML INJ IVP PRN (15:44)
[2019-12-26] MEDS ORDERED: Ondansetron 4 MG/2 ML VIAL IVP PRN (15:44)
[2019-12-26] MEDS ORDERED: Albuterol 2.5 MG/3 ML NEBULIZER IH PRN (15:45)
[2019-12-26] MEDS: Albuterol 2.5 MG/3 ML NEBULIZER IH SCH ×3 (16:50→23:32)
[2019-12-26] MEDS: Azithromycin 500 MG in 0.9 % Sodium Chloride 250 ML IVPB SCH (17:08)
[2019-12-26] MEDS ORDERED: *HR* Heparin 5,000 UNIT/ML VIAL SQ SCH (18:00)
[2019-12-26] MEDS: *HR* Rivaroxaban 10 MG TABLET PO SCH (20:40)
[2019-12-27] MEDS: Albuterol 2.5 MG/3 ML NEBULIZER IH SCH ×5 (04:08→20:18)
[2019-12-27 05:52] LABS: Basophils % 0.1 %; Eosinophils % 0.1 %; Hemoglobin 8.8 g/dL (11.5-15.4); Immature Granulocytes % 1.4 % (0-4); Lymphocytes # 0.7 K/mcL (0.6-4.6); Lymphocytes % 9.4 %; Mean Corpuscular HGB Conc 30.3 g/dL (31.6-35.5); Mean Corpuscular Volume 95.7 fL (83.0-100.0); Mean Platelet Volume 9.7 fL (9.4-12.4); Monocytes # 0.4 K/mcL (0.0-1.3); Monocytes % 5.9 %; Neutrophils # 6.1 K/mcL (1.6-8.9); Platelet Count 260 K/mcL (140-400); Red Blood Count 3.03 M/mcL (3.82-4.97); Red Cell Distribution Width 16.6 % (11.5-14.5); Segmented Neutrophils % 83.1 %; White Blood Count 7.3 K/mcL (4.3-11.1)
[2019-12-27 06:12] LABS: BUN/Creatinine Ratio 47 (6-26); Blood Urea Nitrogen 22 mg/dL (8-23); Calcium 8.6 mg/dL (8.6-10.3); Carbon Dioxide 28 mEq/L (23-29); Chloride 101 mEq/L (98-107); Glucose 127 mg/dL (70-105); Osmolality,Calculated 285 (280-300); Sodium 135 mEq/L (136-145); eGFR For African Americans > 60 (> 60); eGFR For Non-African Americans > 60 (> 60)
[2019-12-27] MEDS: MethylPREDNISolone 40 MG/ML VIAL IVP SCH ×3 (08:53→19:29)
[2019-12-27] MEDS: Azithromycin 500 MG in 0.9 % Sodium Chloride 250 ML IVPB SCH (15:36)
[2019-12-27] MEDS: *HR* LORazepam 1 MG TABLET PO PRN (19:37)
[2019-12-27] MEDS: *HR* Rivaroxaban 10 MG TABLET PO SCH (21:33)
[2019-12-28] MEDS: Albuterol 2.5 MG/3 ML NEBULIZER IH SCH ×7 (00:14→23:21)
[2019-12-28] MEDS: MethylPREDNISolone 40 MG/ML VIAL IVP SCH ×2 (00:30→05:17)
[2019-12-28] MEDS: Azithromycin 500 MG in 0.9 % Sodium Chloride 250 ML IVPB SCH (16:20)
[2019-12-28] MEDS: *HR* Rivaroxaban 10 MG TABLET PO SCH (21:46)
[2019-12-28] MEDS: *HR* LORazepam 1 MG TABLET PO PRN (21:48)
[2019-12-29] MEDS: Albuterol 2.5 MG/3 ML NEBULIZER IH SCH ×6 (04:07→23:37)
[2019-12-29] MEDS: MethylPREDNISolone 40 MG/ML VIAL IVP SCH (07:38)
[2019-12-29] MEDS: *HR* LORazepam 1 MG TABLET PO PRN (21:29)
[2019-12-29] MEDS: *HR* Rivaroxaban 10 MG TABLET PO SCH (21:29)
[2019-12-30] MEDS: Albuterol 2.5 MG/3 ML NEBULIZER IH SCH ×3 (03:11→11:15)
[2019-12-30] MEDS: MethylPREDNISolone 40 MG/ML VIAL IVP SCH (07:47)
[2019-12-30 11:14] VITALS: BP 108/61
== END 2019-12-30 15:08 | DRG 190 ==
LOC: EMEROOARM 13:01 → 2ANU 13:01 → SUATTDRO 15:44 → 2ANU 16:15
PROVIDERS: ADMIT Internal Medicine; ATTEND Internal Medicine